=== PATIENT | female | born 1935 | race African-American/Black ===

== ENCOUNTER 2016-09-26 22:45 | Inpatient (IN) ==
--- NOTE | 2016-09-26 23:13 | Emergency Department Note ---
Arrival - Arrival Chief Complaint: Altered Mental Status Stated Complaint: altered ED Nursing Triage Note: pt was seen here earlier today and diagnosed with shingles. was prescribed clonidine for bp and took it tonight then states bp bottomed out afterwards. Mode of Arrival: Stretcher Source: Patient Time Seen by Provider: 09/26/16 23:11 - History of Present Illness HPI Narrative: This 81-year-old black female was seen earlier today for right facial shingles involving the forehead and extending medially down the bridge of the nose towards the right eye. At that time she had markedly elevated blood pressure and was prescribed clonidine to take at home. When she took the clonidine at home with her normal blood pressure medication her blood pressure bottomed out to 70/50. It has slowly climb back up to its normal ranges since. The patient did not experience any symptoms with this other than weakness. The patient has had normal blood pressure per the family until the shingles struck. At no time did the patient complained of chest pain, shortness of breath, visual changes, slurred speech or focal deficits. Currently she appears in no acute distress. Onset (ago): hour(s) (Patient presents 2 hours after symptoms) Date of Last Menstrual Period: pm Allergies/Adverse Reactions: Allergies Allergy/AdvReac Type Severity Reaction Status Date / Time iodine Allergy Severe HIVES Verified 04/30/16 19:19 latex Allergy Severe HIVES Verified 04/30/16 19:19 Penicillins Allergy Severe HIVES Verified 04/30/16 19:19 Shellfish Allergy Severe HIVES Verified 04/30/16 19:19 Sulfa (Sulfonamide Allergy Severe HIVES Verified 04/30/16 19:19 Antibiotics) Home Medications: Home Medications Medication Instructions Recorded Confirmed Type Amlodipine Besylate 5 mg PO DAILY 04/30/16 09/26/16 History Aspirin EC Tab 81 mg PO DAILY 04/30/16 09/26/16 History Carvedilol 6.25 mg PO BID W/MEALS 04/30/16 09/26/16 History metFORMIN [Glucophage] 500 mg PO BID W/MEALS 04/30/16 09/26/16 History Famciclovir [Famvir] 500 mg PO TID #21 tablet 09/26/16 Rx HYDROcodone/ACETAMIN 10-325 [Paulina 0.5 - 1 tablet PO Q6H #30 tablet 09/26/16 Rx 10-325] MDD 4 Liraglutide [Victoza 2-Simon] 1.2 ml SUBCUT DAILY 09/26/16 09/26/16 History Valsartan/Hydrochlorothiazide 1 each PO DAILY 09/26/16 09/26/16 History [Diovan Hct 320-25 mg Tablet] cloNIDine TAB [Catapres Tab] 0.1 mg PO BID #30 tablet 09/26/16 Rx Review of System - Review of System 12 point system: reviewed and no additional remarkable complaints except as stated - Review of System Constitutional: Present: as per HPI Cardiovascular: Present: as per HPI Neurological: Present: as per HPI Medical,Surgical,& Family Hx - Medical History Cardio: History of: Hypertension Endocrine: History of: Diabetes Mellitus (IDDM), Diabetes Mellitus (NIDDM), Dyslipidemia - Social History Smoking Status: Never smoker Frequency of Alcohol Use: None Type of Drug Use: None Exam Physical Examination: GENERAL: Well developed, well nourished elderly black female in no acute distress. HEENT: Normocephalic. No trauma. Moist mucous membranes. EOMI. PERRLA. Shingles of the right forehead extending down the right nasal wall towards the medial aspect of the right eye ENT NML NECK: Supple. No adenopathy. CARDIAC: Regular. No murmurs. 63 CHEST: Clear to auscultation. No respiratory distress. O2 sat 96% ABDOMEN: Soft. Nontender. Active bowel sounds. EXTREMITIES: No trauma. Normal ROM. No pedal edema. SKIN: No diaphoresis. No rash. NEURO: Alert. Oriented to person place not so well the time motor, sensory, vibratory intact. No focal deficits. Vital Signs: Vital Signs Temperature 96.7 F L 09/26/16 22:46 Pulse Rate 63 09/26/16 22:46 Respiratory Rate 14 09/26/16 22:46 Blood Pressure 174/69 09/26/16 22:46 O2 Sat by Pulse Oximetry 96 09/26/16 22:46 Course - Reevaluation(s) Reevaluation #1: Discussed with family and it is the thought of both the family myself that her blood pressure was elevated due to the pain. As she had normal blood pressures for some time on her previous regimen, the family has been advised to cease the clonidine. Disposition Clinical Impression: Drug reaction Case discussed with: patient, patient's family Disposition: Disch To Home/Self Care Condition: Stable Additional Instructions: Stop clonidine. Be sure and call the account processor office in the morning and tell them you were here tonight. Continue current anti-viral medications. Time of Disposition: 23:15
[2016-09-27] MEDS ORDERED: ONDANSETRON 4 MG/2 ML VIAL IV STA (00:41)
[2016-09-27 00:42] LABS: Apearance,Urine CLEAR (Clear); Bilirubin,Urine Negative (Negative); Blood, Urine Negative (Negative); Glucose,Urine (UA) Negative (Negative); Ketones,Urine Negative (Negative); Mucus,Urine Occasional /LPF (Occasional); Nitrite,Urine Negative (Negative); Protein,Urine Negative; RBC,Urine <1 /HPF (0-4); Squamous Epithelial Cell,Urine Occasional /HPF (0-10); Urine Color Yellow (Yellow); Urine Specific Gravity 1.014 (1.001-1.035); Urine Urobilinogen < 2.0 EU/DL (0.2-1.0); WBC,Urine 1 /HPF (0-6)
[2016-09-27] MEDS ORDERED: ONDANSETRON 4 MG/2 ML VIAL ONE (00:42)
[2016-09-27 00:49] LABS: INR 1.1; PT Patient Result 11.7 SECS; Partial Thromboplastin Time 25.6 SECS (0-40)
[2016-09-27 00:59] LABS: Alanine Aminotransferase 26 U/L (13-56); Alkaline Phosphatase 61 U/L (45-117); Aspartate Amino Transferase 17 U/L (0-37); Blood Urea Nitrogen 34 MG/DL (7-18); Calcium 9.7 MG/DL (8.5-10.1); Glucose 140 MG/DL (74-106); Osmolality,Calculated 286.5 MOS/KG (273-304); Sodium 139 MMOL/L (136-145); Total Protein 7.6 G/DL (6.4-8.3); Troponin I Only < 0.015 NG/ML (0.00-0.045)
[2016-09-27 01:00] LABS: Basophils % 0.5 % (0.0-0.8); Eosinophils # 0.3 10*3/uL (0.0-0.87); Eosinophils % 3.3 % (0.00-10.9); Hematocrit 31.3 VOL% (35.7-47.0); Hemoglobin 10.6 GM/DL (12.0-16.0); Immature Granulocytes % 0.5 %; Immature Granulocytes Absolute 0.04 #; Lymphocytes % 11.6 % (21.3-54.2); Mean Corpuscular HGB Conc 33.9 GM/DL (32-36); Mean Corpuscular Hemoglobin 31 PG (27-34); Mean Corpuscular Volume 92.3 FL (87-102); Mean Platelet Volume 12.9 FL (9.6-12.0); Monocytes # 0.9 10*3/uL (0.11-0.8); Monocytes % 10.3 % (1.7-12.7); Neutrophils # 6.5 10*3/uL (1.4-7.4); Neutrophils % 73.8 % (38.7-73.9); Platelet Count 203 T/CUMM (130-400); Red Blood Count 3.39 MC/CUMM (3.8-5.5); Red Cell Distribution Width 12.5 % (9.3-17.3); White Blood Count 8.8 T/CUMM (4-12)
[2016-09-27] MEDS ORDERED: amLODIPine 5 MG TABLET PO STA (01:15)
[2016-09-27] MEDS ORDERED: GLUCAGON 1 MG VIAL IM PRN (01:15)
[2016-09-27] MEDS ORDERED: ONDANSETRON 4 MG/2 ML VIAL IV PRN (01:15)
[2016-09-27] MEDS ORDERED: DEXTROSE 50% 25 GM/50 ML VIAL IV PRN (01:15)
--- NOTE | 2016-09-27 06:12 | CT Report ---
Exam: CT scan of brain without contrast Date: 09/27/2016 Indication: Mental status changes Comparison: 12/03/2012 Patient's classification: Emergency department Technical: Images were obtained from the skull base to the vertex without the use of intravenous contrast. Dose reduction was performed with decreasing kv and mA and automated exposure Total DLP: 914.6 mGy*cm Findings: The study was initially reviewed by [facility]. The brainstem reveals minimal ischemic changes. The cerebellum reveals complete components of atrophy. Small vessel changes are present in the periventricular subcortical white matter regions with a cavum septa pellucida and cavum vergae present. The paranasal sinuses globes and sella are intact the mastoids reveal no acute findings. Calvarium is intact. Impression: 1. Small vessel ischemic changes 2. No obvious acute hemorrhage, infarction or mass effect 3. Calcification in the basal ganglia and normal variant of cavum vergae cavum septa pellucida present. PROCEDURE INTERPRETED AT [facility] [place] DEPARTMENT OF RADIOLOGY Final Report Signed by: Dr. Calvin Ley
--- NOTE | 2016-09-27 06:45 | XRay Report ---
Exam: XR chest 1V portable Date: 09/26/2016 11:46 PM Indication: Altered mental status Comparison: 10/04/2011 Technical: Single portable exam Findings: Mild cardiomegaly present. ASVD is present. Degenerative change present thoracic spine. Small granuloma in the right base. External cardiac leads are present. Mediastinum is intact Impression: 1. Cardiomegaly without decompensation 2. Small granuloma right base 3. Degenerative spondylosis change thoracic spine PROCEDURE INTERPRETED AT [facility] DEPARTMENT OF RADIOLOGY Final Report Signed by: Dr. Calvin Ley
[2016-09-27] MEDS ORDERED: INSULIN REGULAR 100 UNIT/ML SUBCUT SCH (07:30)
[2016-09-27] MEDS ORDERED: CARVEDILOL 6.25 MG TABLET PO SCH (08:00)
[2016-09-27] MEDS ORDERED: metFORMIN 500 MG TABLET PO SCH (08:00)
--- NOTE | 2016-09-27 08:07 | EKG Report ---
Stationary ECG Study [facility] ER Test Date: 09/26/2016 11:59:22 PM Pat Name: GERMAN RAMIREZ Department: Room: 239 Gender: F Power Regulator: : 1935 Requested by: Viraj Tellez Order Number: [id number] Reading MD: ALFREDO LAUREANO Intervals [place] Rate: 70 P: 68 OK: 185 QRS: 61 QRSD: 133 T: -27 QT: 412 QTc: 433 Interpretive Statements SINUS RHYTHM WITH OCCASIONAL VENTRICULAR PREMATURE COMPLEXES INTRAVENTRICULAR CONDUCTION DELAY SEPTAL MYOCARDIAL INFARCTION, OF INDETERMINATE AGE Electronically Signed On 09-27-16 18:19:24 CDT by ALFREDO LAUREANO [email or web address]
--- NOTE | 2016-09-27 08:45 | Hospitalist History & Physical ---
<Allie De La Torre - Last Filed: 09/27/16 08:41> Assessment and Plan - Time spent with patient Time spent with patient: Greater than 30 minutes (1) Hypotension Status: Acute Assessment and plan: Ms. Hahn is an 81-year-old -[place] female admitted presented to the ED with herpes zoster infection and treated. Her blood pressures were elevated most likely due to pain and she was given an additional blood pressure medication. Patient states she became weak and her blood pressure bottomed out. She was admitted for observation and her blood pressures are back to normal now. Patient has been instructed to DC the clonidine and to control her pain with the [place] was given in the ED or Aleve or Motrin. Also instructed the patient to go ahead and document several blood pressures per day and to follow-up with Dr. Schwartz to see if her medicines need adjusted. Most likely they are elevated due to the intense pain she is feeling with the shingles infection and if the pain is controlled her blood pressure should most likely be controlled as well. Patient's case has been discussed with Dr. Newman and further recommendations to follow. So I will write for patient to discharge home with follow-up with Dr. Schwartz and also patient was to arrange follow-up with an eye doctor in the next day or so due to the shingles infection. (2) Herpes zoster cephalicus Status: Acute History of Present Illness Chief complaint: Weakness History of present illness: Ms. Hahn is a 81 year old female with history of hypertension presenting to the ED with complaints of weakness and low blood pressure. She had been seen the previous day and treated for shingles but at that time her blood pressure was 221/76. She was given clonidine to add to her home regimen and patient states her blood pressure dropped too low and she felt really weak. Family insisted on admission and she was mistakenly admitted by Dr. Gage. Family states patient sees Dr. Schwartz right now but they are wanting to switch to Dr. Freeman but he has not seen her yet. Dr. Gage asked if we could take over patient's care. On exam patient is awake and alert complaining of right facial pain. Her blood pressures have been good the last 12 hours. Patient denies headache, blurry vision, chest pain, shortness of breath, abdominal pain, or lower extremity swelling. Patient states she wants to go home. Home Medications Medication Instructions Recorded Confirmed Type Amlodipine Besylate 5 mg PO DAILY 04/30/16 09/27/16 History Aspirin EC Tab 81 mg PO DAILY 04/30/16 09/27/16 History Carvedilol 6.25 mg PO BID W/MEALS 04/30/16 09/27/16 History metFORMIN [Glucophage] 500 mg PO BID W/MEALS 04/30/16 09/27/16 History Famciclovir [Famvir] 500 mg PO TID #21 tablet 09/26/16 09/27/16 Rx Liraglutide [Victoza 2-Simon] 1.2 ml SUBCUT DAILY 09/26/16 09/27/16 History Valsartan/Hydrochlorothiazide 1 each PO DAILY 09/26/16 09/27/16 History [Diovan Hct 320-25 mg Tablet] HYDROcodone/ACETAMIN 10-325 [[place] 0.5 - 1 tablet PO Q6H PRN MDD 4 09/27/16 History 10-325] Allergies Allergy/AdvReac Type Severity Reaction Status Date / Time iodine Allergy Severe HIVES Verified 09/27/16 02:48 latex Allergy Severe HIVES Verified 09/27/16 02:48 Penicillins Allergy Severe HIVES Verified 09/27/16 02:48 Shellfish Allergy Severe HIVES Verified 09/27/16 02:48 Sulfa (Sulfonamide Allergy Severe HIVES Verified 09/27/16 02:48 Antibiotics) Medical,Surgical,& Family Hx - Medical History Cardio: History of: Hypertension HEENT: History of: Dental Problems (has a bad tooth) Endocrine: History of: Diabetes Mellitus (IDDM), Diabetes Mellitus (NIDDM), Dyslipidemia Rheumatology: History of;: Rheumatoid Arthritis - Surgical History Abdominal Surgeries: Patient denies: Abdominal Surgery Orthopedic Surgeries: Patient denies;: Spinal Surgery - Family History Family History: Reports;: Family Cancer (sistrer had melanoma), Family Diabetes (daughter had gestational), Family Hypertension (daughter), Family Psychiatric Problems (daughter) Denies;: Family Anesthesia Reaction, Family Heart Disease, Family Hematology , Family Stroke - Social History Smoking Status: Never smoker Frequency of Alcohol Use: None Type of Drug Use: None Marital Status: Lives With:: Spouse Functional capacity: independent ambulation Review of systems: A complete 10 system review of systems was obtained and pertinent positives and negatives per HPI Exam - Constitutional Vitals: Period Temp Pulse Resp BP Sys/Garcia Pulse Ox Last 24 Hr 97.0 F-98.1 F 68-72 16-20 158-183/58-86 94-99 Exam: Constitutional System: [Mild] distress. [No] tremulousness. Head: Normocephalic, atraumatic. Patient does have blisters on the right side of head and forehead Ears, Nose and Throat System: No evidence of Otitis or Mastoiditis. No epistaxis or discharge Eyes System: Pupils equal, round, and reactive. Extraocular muscles intact. Neck: Supple, without adenopathy, [No] jugular venous distention. No thyromegaly , neck mass, or prior surgery apparent. Respiratory System: Chest [clear] to auscultation. Cardiovascular System: Heart with [regular] rate and rhythm. [No] murmur. GI System: Abdomen [soft], [non]tender. [Normo]active bowel sounds present. Musculoskeletal System: limbs with [no] pedal edema. [Full] distal pulses. Neurological System: [No discernable] sensory deficit. 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 Hahn is a 81 year old female that was mistakenly admitted to Dr. Chepe Gage service overnight. I was contacted by Dr. Gage in the morning to assume care of this patient. Patient was seen and examined by AIMEE Dominguez. I have not personally seen and examined this patient today. I agree with the above note as prepared by the advanced practice provider. I agree with the assessment and plan. Exam - Constitutional Vitals: Period Temp Pulse Resp BP Sys/Garcia Pulse Ox Last 24 Hr 97.0 F-98.5 F 68-72 16-20 152-183/58-86 93-99 Results - Labs CBC & BMP: 09/26/16 23:53 09/26/16 23:53
--- NOTE | 2016-09-27 08:54 | Discharge Summary ---
<Allie De La Torre - Last Filed: 09/27/16 08:52> Hospital Course - Time spent with patient Time with patient DS: Less than 30 minutes Diagnosis - Discharge Diagnosis (1) Hypotension Status: Resolved (2) Herpes zoster cephalicus Status: Resolved Specialty Discharge - Follow Up or Referrals Follow up with: opthalmologist, physician [Other] - 09/28/16 Arabella Vargas [Physician] - 10/06/16 10:00 am Discharge Plan - Discharge Data Disposition: Disch To Home/Self Care Condition at Discharge: Stable Discharge Diet: advance to your usual diet Activity: resume usual activities as tolerated Hygiene: may shower Driving: other (No driving if taking pain medications) Contact your physician if you experience:: fever over 101, pain uncontrolled by pain medications - Discharge Medications Continue metFORMIN [Glucophage] 500 mg PO BID W/MEALS Liraglutide [Victoza 2-Simon] 1.2 ml SUBCUT DAILY Valsartan/Hydrochlorothiazide [Diovan Hct 320-25 mg Tablet] 1 each PO DAILY Famciclovir [Famvir] 500 mg PO TID #21 tablet HYDROcodone/ACETAMIN 10-325 [[place] 10-325] 0.5 - 1 tablet PO Q6H PRN MDD 4 PRN Reason: Pain Carvedilol 6.25 mg PO BID W/MEALS Amlodipine Besylate 5 mg PO DAILY Aspirin EC Tab 81 mg PO DAILY Discontinued cloNIDine TAB [Catapres Tab] 0.1 mg PO BID #30 tablet - Follow Up or Referral Follow Up: opthalmologist, physician [Other] - 09/28/16 Arabella Vargas [Physician] - 10/06/16 10:00 am - Forms/Instructions Instructions: Hypotension (DC) Exam - Constitutional Vitals: Period Temp Pulse Resp BP Sys/Garcia Pulse Ox Last 24 Hr 97.0 F-98.5 F 68-72 16-20 152-183/58-86 93-99 Exam: 81-year-old -[place] female, no acute distress Head and face with blistering rash on the right side extending to the forehead Chest clear CV regular rate and rhythm Abdomen obese nontender Extremities no edema DS: Provider Date of admission: 09/27/16 01:14 Primary care physician: . No PCP Attending physician on admission: Zi Gage MD Discharging clinician: AIMEE Peoples Expected date of discharge: 09/27/16 <Scott Thornton - Last Filed: 09/27/16 19:43> Hospital Course - Hospital Course Hospital Course: Ms. Hahn is an 81-year-old -[place] female admitted presented to the ED with herpes zoster infection and treated. Her blood pressures were elevated most likely due to pain and she was given an additional blood pressure medication. Patient states she became weak and her blood pressure bottomed out. She was admitted for observation and her blood pressures are back to normal now. Patient has been instructed to DC the clonidine and to control her pain with the [place] was given in the ED or Aleve or Motrin. Also instructed the patient to go ahead and document several blood pressures per day and to follow-up with Dr. Schwartz to see if her medicines need adjusted. Most likely they are elevated due to the intense pain she is feeling with the shingles infection and if the pain is controlled her blood pressure should most likely be controlled as well. Patient's case has been discussed with Dr. Newman and further recommendations to follow. So I will write for patient to discharge home with follow-up with Dr. Schwartz and also patient was to arrange follow-up with an eye doctor in the next day or so due to the shingles infection. - Time spent with patient Time with patient DS: Less than 30 minutes Diagnosis - Discharge Diagnosis (1) HTN (hypertension) Status: Chronic (2) Herpes zoster cephalicus Status: Acute
[2016-09-27 09:00] VITALS: BP 152/68
[2016-09-27] MEDS ORDERED: PANTOPRAZOLE 40 MG TABLET PO SCH (09:00)
[2016-09-27] MEDS ORDERED: VALSARTAN/HCTZ 160-12.5 MG TABLET PO SCH (09:00)
[2016-09-27] MEDS ORDERED: ASPIRIN EC 81 MG TABLET PO SCH (09:00)
== END 2016-09-27 11:30 | disposition home or self-care (01) | DRG 312 ==
LOC: EDUNIT# → EDBD → N.ED 22:45 → N.EDINP 09-27 01:14 → SUATTDRO 09-27 01:14 → N.4E 09-27 01:35 → N.2E 09-27 01:59
PROVIDERS: ADMIT Family Medicine; ATTEND Family Medicine

== ENCOUNTER 2017-09-19 20:48 | Observation (INO) ==
[2017-09-19] MEDS ORDERED: traMADol 50 MG TABLET PO STA (21:51)
[2017-09-19] MEDS ORDERED: ONDANSETRON ODT 4 MG TABLET PO STA (21:51)
[2017-09-19] MEDS ORDERED: ONDANSETRON 4 MG/2 ML VIAL IV STA (23:39)
[2017-09-19] MEDS ORDERED: PANTOPRAZOLE 40 MG VIAL IV STA (23:39)
[2017-09-20] MEDS ORDERED: hydrALAZINE 20 MG/1 ML VIAL IV STA (00:55)
[2017-09-20 01:39] LABS: Basophils % 0.5 % (0.0-0.8); Eosinophils # 0.1 10*3/uL (0.0-0.87); Eosinophils % 1.8 % (0.00-10.9); Hematocrit 35.9 VOL% (35.7-47.0); Hemoglobin 12.8 GM/DL (12.0-16.0); Immature Granulocytes % 0.3 %; Immature Granulocytes Absolute 0.02 #; Lymphocytes # 2.2 10*3/uL (1.4-4.0); Lymphocytes % 33.6 % (21.3-54.2); Mean Corpuscular HGB Conc 35.7 GM/DL (32-36); Mean Corpuscular Hemoglobin 32 PG (27-34); Mean Corpuscular Volume 89.1 FL (87-102); Mean Platelet Volume 14.2 FL (9.6-12.0); Monocytes # 0.6 10*3/uL (0.11-0.8); Monocytes % 8.4 % (1.7-12.7); Neutrophils # 3.6 10*3/uL (1.4-7.4); Neutrophils % 55.4 % (38.7-73.9); Platelet Count 173 T/CUMM (130-400); Red Blood Count 4.03 MC/CUMM (3.8-5.5); Red Cell Distribution Width 11.9 % (9.3-17.3); White Blood Count 6.5 T/CUMM (4-12)
[2017-09-20 01:42] LABS: Alanine Aminotransferase 25 U/L (13-56); Albumin 3.3 G/DL (3.4-5.0); Alkaline Phosphatase 100 U/L (45-117); Aspartate Amino Transferase 15 U/L (0-37); Bilirubin,Total < 0.39 MG/DL (0.2-1.0); Blood Urea Nitrogen 32 MG/DL (7-18); Calcium 9.4 MG/DL (8.5-10.1); Glucose 288 MG/DL (74-106); Potassium 4.2 MMOL/L (3.5-5.1); Sodium 136 MMOL/L (136-145); Total Protein 7.4 G/DL (6.4-8.3)
[2017-09-20 01:44] LABS: INR 0.9; PT Patient Result 9.8 SECS
[2017-09-20] MEDS ORDERED: SODIUM CHLORIDE 0.9% 500 ML IV STA (02:03)
[2017-09-20] MEDS ORDERED: ACETAMINOPHEN 325 MG TABLET PO PRN (02:17)
[2017-09-20] MEDS ORDERED: ONDANSETRON 4 MG/2 ML VIAL IV PRN (02:17)
[2017-09-20] MEDS ORDERED: DEXTROSE 5% 1,000 ML IV SCH (02:30)
[2017-09-20] MEDS ORDERED: DEXTROSE 50% 25 GM/50 ML VIAL IV PRN (04:59)
[2017-09-20] MEDS ORDERED: GLUCAGON 1 MG VIAL IM PRN (04:59)
[2017-09-20] MEDS ORDERED: hydrALAZINE 20 MG/1 ML VIAL IV PRN (05:13)
[2017-09-20 06:14] LABS: Basophils % 0.3 % (0.0-0.8); Eosinophils # 0.1 10*3/uL (0.0-0.87); Eosinophils % 0.5 % (0.00-10.9); Hematocrit 35.7 VOL% (35.7-47.0); Hemoglobin 12.4 GM/DL (12.0-16.0); Immature Granulocytes % 0.4 %; Immature Granulocytes Absolute 0.04 #; Lymphocytes # 1.6 10*3/uL (1.4-4.0); Lymphocytes % 14.1 % (21.3-54.2); Mean Corpuscular HGB Conc 34.7 GM/DL (32-36); Mean Corpuscular Hemoglobin 32 PG (27-34); Mean Corpuscular Volume 91.1 FL (87-102); Mean Platelet Volume 13.4 FL (9.6-12.0); Monocytes # 0.5 10*3/uL (0.11-0.8); Monocytes % 4.6 % (1.7-12.7); Neutrophils # 8.9 10*3/uL (1.4-7.4); Neutrophils % 80.1 % (38.7-73.9); Platelet Count 169 T/CUMM (130-400); Red Blood Count 3.92 MC/CUMM (3.8-5.5); Red Cell Distribution Width 11.9 % (9.3-17.3); White Blood Count 11.1 T/CUMM (4-12)
[2017-09-20 07:04] LABS: Calcium 9.2 MG/DL (8.5-10.1); Osmolality,Calculated 289.8 MOS/KG (273-304); Potassium 4.1 MMOL/L (3.5-5.1); Thyroid Stimulating Hormone 4.7 uIU/ml (0.358-3.74)
[2017-09-20] MEDS: INSULIN REGULAR 100 UNIT/ML SUBCUT SCH ×4 (08:06→21:07)
[2017-09-20] MEDS: GLIMEPIRIDE 2 MG TABLET PO SCH ×2 (08:08→16:37)
[2017-09-20] MEDS: ASPIRIN EC 81 MG TABLET PO SCH (08:08)
[2017-09-20] MEDS: CARVEDILOL 6.25 MG TABLET PO SCH ×2 (08:08→16:37)
[2017-09-20] MEDS: PANTOPRAZOLE 40 MG TABLET PO SCH (08:08)
[2017-09-20] MEDS: VALSARTAN/HCTZ 160-12.5 MG TABLET PO SCH (08:08)
[2017-09-20] MEDS: MAGNESIUM CHLORIDE 64 MG TABLET PO SCH (08:08)
[2017-09-20] MEDS ORDERED: DHA PO SCH (09:00)
[2017-09-20] MEDS: DOCUSATE SODIUM 100 MG CAPSULE PO SCH ×2 (09:00→21:06)
[2017-09-20] MEDS ORDERED: COD LIVER OIL PO SCH (09:00)
[2017-09-20] MEDS ORDERED: EPA PO SCH (09:00)
[2017-09-20] MEDS ORDERED: [UNRECOGNIZED DRUG - OTHER] PO SCH (09:00)
[2017-09-20] MEDS ORDERED: D3 PO SCH (09:00)
[2017-09-20] MEDS ORDERED: SODIUM CHLORIDE 0.9% 1,000 ML IV SCH (20:30)
[2017-09-20] MEDS: hydrALAZINE 25 MG TABLET PO SCH (21:06)
[2017-09-20] MEDS: SIMVASTATIN 20 MG TABLET PO SCH (21:06)
[2017-09-20] MEDS: INSULIN GLARGINE 100 UNIT/ML SUBCUT SCH (21:07)
[2017-09-20] MEDS: KETOROLAC 15 MG/1 ML VIAL IV SCH (21:15)
[2017-09-20] MEDS ORDERED: IPRATROPIUM 500 MCG/2.5 ML NEB RESP TX PRN (23:40)
[2017-09-21 04:23] LABS: Apearance,Urine Clear (Clear); Protein,Urine 30 MG/DL; Urine Color Yellow (Yellow); Urine Specific Gravity 1.005 (1.001-1.035)
[2017-09-21 04:24] LABS: Bilirubin,Urine Negative (Negative); Blood, Urine Negative (Negative); Glucose,Urine (UA) Negative (Negative); Granular Casts,Urine 1 /LPF (0-1); Hyaline Casts,Urine 1 /LPF (0-3); Ketones,Urine Negative (Negative); Mucus,Urine Occasional /LPF (Occasional); Nitrite,Urine Negative (Negative); Squamous Epithelial Cell,Urine Occasional /HPF (0-10); Urine Urobilinogen < 2.0 EU/DL (0.2-1.0)
[2017-09-21 06:00] LABS: Basophils % 0.4 % (0.0-0.8); Eosinophils # 0.1 10*3/uL (0.0-0.87); Eosinophils % 1.8 % (0.00-10.9); Hematocrit 34.2 VOL% (35.7-47.0); Hemoglobin 11.7 GM/DL (12.0-16.0); Immature Granulocytes % 0.3 %; Immature Granulocytes Absolute 0.02 #; Lymphocytes # 2.9 10*3/uL (1.4-4.0); Lymphocytes % 37.8 % (21.3-54.2); Mean Corpuscular HGB Conc 34.2 GM/DL (32-36); Mean Corpuscular Hemoglobin 32 PG (27-34); Mean Corpuscular Volume 91.9 FL (87-102); Mean Platelet Volume 13.9 FL (9.6-12.0); Monocytes # 0.6 10*3/uL (0.11-0.8); Monocytes % 7.2 % (1.7-12.7); Neutrophils % 52.5 % (38.7-73.9); Platelet Count 172 T/CUMM (130-400); Red Blood Count 3.72 MC/CUMM (3.8-5.5); Red Cell Distribution Width 11.9 % (9.3-17.3); White Blood Count 7.6 T/CUMM (4-12)
[2017-09-21 06:29] LABS: Calcium 8.7 MG/DL (8.5-10.1); Potassium 4.5 MMOL/L (3.5-5.1)
[2017-09-21] MEDS: KETOROLAC 15 MG/1 ML VIAL IV SCH ×3 (07:14→21:27)
[2017-09-21] MEDS: LEVOTHYROXINE 25 MCG TABLET PO SCH (07:15)
[2017-09-21] MEDS: INSULIN REGULAR 100 UNIT/ML SUBCUT SCH ×4 (09:28→21:28)
[2017-09-21] MEDS: PANTOPRAZOLE 40 MG TABLET PO SCH (09:29)
[2017-09-21] MEDS: VALSARTAN/HCTZ 160-12.5 MG TABLET PO SCH (09:29)
[2017-09-21] MEDS: SERTRALINE 25 MG TABLET PO SCH (09:29)
[2017-09-21] MEDS: ASPIRIN EC 81 MG TABLET PO SCH (09:30)
[2017-09-21] MEDS: hydrALAZINE 25 MG TABLET PO SCH ×3 (09:30→21:28)
[2017-09-21] MEDS: INSULIN GLARGINE 100 UNIT/ML SUBCUT SCH ×2 (09:30→21:29)
[2017-09-21] MEDS: GLIMEPIRIDE 2 MG TABLET PO SCH ×2 (09:30→17:29)
[2017-09-21] MEDS: DOCUSATE SODIUM 100 MG CAPSULE PO SCH ×2 (09:30→21:28)
[2017-09-21] MEDS: CARVEDILOL 6.25 MG TABLET PO SCH ×2 (09:30→17:29)
[2017-09-21] MEDS: MAGNESIUM CHLORIDE 64 MG TABLET PO SCH (09:31)
[2017-09-21] MEDS: PREGABALIN 75 MG CAPSULE PO SCH (21:28)
[2017-09-21] MEDS: SIMVASTATIN 20 MG TABLET PO SCH (21:28)
[2017-09-22] MEDS: KETOROLAC 15 MG/1 ML VIAL IV SCH ×3 (07:40→22:45)
[2017-09-22] MEDS: ASPIRIN EC 81 MG TABLET PO SCH (08:41)
[2017-09-22] MEDS: CARVEDILOL 6.25 MG TABLET PO SCH ×2 (08:41→18:01)
[2017-09-22] MEDS: DOCUSATE SODIUM 100 MG CAPSULE PO SCH ×2 (08:41→21:13)
[2017-09-22] MEDS: GLIMEPIRIDE 2 MG TABLET PO SCH (08:41)
[2017-09-22] MEDS: hydrALAZINE 25 MG TABLET PO SCH (08:41)
[2017-09-22] MEDS: LEVOTHYROXINE 25 MCG TABLET PO SCH (08:42)
[2017-09-22] MEDS: VALSARTAN/HCTZ 160-12.5 MG TABLET PO SCH (08:43)
[2017-09-22] MEDS: PREGABALIN 75 MG CAPSULE PO SCH (08:43)
[2017-09-22] MEDS: PANTOPRAZOLE 40 MG TABLET PO SCH (08:45)
[2017-09-22] MEDS: INSULIN REGULAR 100 UNIT/ML SUBCUT SCH ×4 (08:46→21:12)
[2017-09-22] MEDS: INSULIN GLARGINE 100 UNIT/ML SUBCUT SCH (08:46)
[2017-09-22] MEDS: SERTRALINE 25 MG TABLET PO SCH (08:51)
[2017-09-22] MEDS ORDERED: glyBURIDE 5 MG TABLET PO SCH (17:00)
[2017-09-22] MEDS: SIMVASTATIN 20 MG TABLET PO SCH (21:12)
[2017-09-22] MEDS: PREGABALIN 50 MG CAPSULE PO SCH (21:13)
[2017-09-23 04:14] LABS: Calcium 8.9 MG/DL (8.5-10.1); Osmolality,Calculated 281.8 MOS/KG (273-304); Potassium 4.2 MMOL/L (3.5-5.1)
[2017-09-23] MEDS: KETOROLAC 15 MG/1 ML VIAL IV SCH (05:39)
[2017-09-23] MEDS: LEVOTHYROXINE 25 MCG TABLET PO SCH (05:40)
[2017-09-23] MEDS: INSULIN REGULAR 100 UNIT/ML SUBCUT SCH ×2 (07:56→12:25)
[2017-09-23] MEDS ORDERED: glyBURIDE 5 MG TABLET PO SCH (08:00)
[2017-09-23] MEDS: VALSARTAN/HCTZ 160-12.5 MG TABLET PO SCH (08:25)
[2017-09-23] MEDS: DOCUSATE SODIUM 100 MG CAPSULE PO SCH (08:26)
[2017-09-23] MEDS: ASPIRIN EC 81 MG TABLET PO SCH (08:26)
[2017-09-23] MEDS: SERTRALINE 25 MG TABLET PO SCH (08:26)
[2017-09-23] MEDS: PREGABALIN 50 MG CAPSULE PO SCH (08:26)
[2017-09-23] MEDS: PANTOPRAZOLE 40 MG TABLET PO SCH (08:26)
[2017-09-23] MEDS: CARVEDILOL 6.25 MG TABLET PO SCH (08:26)
[2017-09-23 09:18] VITALS: BP 166/66
== END 2017-09-23 12:24 | disposition home or self-care (01) ==
LOC: N.ED 20:48 → INTOOBSV 09-20 02:17 → N.EDINP 09-20 02:17 → N.CC 09-20 04:04 → N.5E 09-21
PROVIDERS: ADMIT Internal Medicine; ATTEND Internal Medicine

== ENCOUNTER 2018-07-08 11:45 | Inpatient (IN) ==
[2018-07-08 13:21] LABS: Basophils # 0.1 10*3/uL (0.0-0.2); Basophils % 0.5 % (0.0-0.8); Eosinophils # 0.1 10*3/uL (0.0-0.87); Eosinophils % 0.8 % (0.00-10.9); Hemoglobin 12.4 GM/DL (12.0-16.0); Immature Granulocytes % 0.3 %; Immature Granulocytes Absolute 0.03 #; Lymphocytes # 1.2 10*3/uL (1.4-4.0); Lymphocytes % 11.3 % (21.3-54.2); Mean Corpuscular HGB Conc 33.5 GM/DL (32-36); Mean Corpuscular Hemoglobin 31 PG (27-34); Mean Corpuscular Volume 91.1 FL (87-102); Mean Platelet Volume 13.8 FL (9.6-12.0); Monocytes # 0.6 10*3/uL (0.11-0.8); Monocytes % 5.5 % (1.7-12.7); Neutrophils # 8.6 10*3/uL (1.4-7.4); Neutrophils % 81.6 % (38.7-73.9); Platelet Count 166 T/CUMM (130-400); Red Blood Count 4.06 MC/CUMM (3.8-5.5); Red Cell Distribution Width 11.4 % (9.3-17.3); White Blood Count 10.5 T/CUMM (4-12)
[2018-07-08 13:39] LABS: INR 0.9; PT Patient Result 10.3 SECS
[2018-07-08 13:46] LABS: Calcium 9.2 MG/DL (8.5-10.1); Osmolality,Calculated 293.2 MOS/KG (273-304); Potassium 3.9 MMOL/L (3.5-5.1)
[2018-07-08] MEDS ORDERED: ONDANSETRON 4 MG/2 ML VIAL IV PRN (13:56)
[2018-07-08] MEDS ORDERED: INSULIN REGULAR 100 UNIT/ML SUBCUT STA (14:04)
[2018-07-08] MEDS ORDERED: DEXTROSE 50% 25 GM/50 ML SYRINGE IV PRN (15:48)
[2018-07-08] MEDS ORDERED: GLUCAGON 1 MG VIAL IM PRN (15:48)
[2018-07-08] MEDS: ACETAMINOPHEN 325 MG TABLET PO PRN ×2 (17:51→22:08)
[2018-07-08] MEDS ORDERED: SODIUM CHLORIDE 0.9% 1,000 ML IV SCH (18:00)
[2018-07-08] MEDS: GLIMEPIRIDE 2 MG TABLET PO SCH (21:56)
[2018-07-08] MEDS: SIMVASTATIN 10 MG TABLET PO SCH (21:56)
[2018-07-08] MEDS: INSULIN LISPRO 100 UNIT/ML SUBCUT SCH (21:56)
[2018-07-08] MEDS: DOCUSATE SODIUM 100 MG CAPSULE PO SCH (21:56)
[2018-07-08] MEDS: MAGNESIUM CHLORIDE 64 MG TABLET PO SCH (21:56)
[2018-07-08] MEDS: SODIUM CHLORIDE 0.9% IV SCH (22:07)
[2018-07-08] MEDS: POTASSIUM CHLORIDE IV SCH (22:07)
[2018-07-08] MEDS: POLYVINYL ALCOHOL 1.4% OPH SOLN 15 ML BOTTLE BOTH EYES SCH (22:17)
[2018-07-09 03:18] LABS: Apearance,Urine CLEAR (Clear); Bacteria,Urine Occasional /HPF (Few); Bilirubin,Urine Negative (Negative); Blood, Urine Negative (Negative); Glucose,Urine (UA) >=500 mg/dL (Negative); Hyaline Casts,Urine 3 /LPF (0-3); Ketones,Urine Negative (Negative); Mucus,Urine Occasional /LPF (Occasional); Nitrite,Urine Negative (Negative); Protein,Urine 100 MG/DL; RBC,Urine <1 /HPF (0-4); Squamous Epithelial Cell,Urine Occasional /HPF (0-10); Urine Color Yellow (Yellow); Urine Specific Gravity 1.016 (1.001-1.035); Urine Urobilinogen < 2.0 EU/DL (0.2-1.0); WBC,Urine 1 /HPF (0-6)
[2018-07-09 04:18] LABS: Basophils % 0.4 % (0.0-0.8); Eosinophils # 0.2 10*3/uL (0.0-0.87); Eosinophils % 2.1 % (0.00-10.9); Hematocrit 35.1 VOL% (35.7-47.0); Hemoglobin 11.6 GM/DL (12.0-16.0); Immature Granulocytes % 0.3 %; Immature Granulocytes Absolute 0.03 #; Lymphocytes # 2.3 10*3/uL (1.4-4.0); Lymphocytes % 24.2 % (21.3-54.2); Mean Corpuscular Hemoglobin 30 PG (27-34); Mean Corpuscular Volume 91.6 FL (87-102); Mean Platelet Volume 13.9 FL (9.6-12.0); Monocytes # 0.9 10*3/uL (0.11-0.8); Monocytes % 9.9 % (1.7-12.7); Neutrophils # 5.9 10*3/uL (1.4-7.4); Neutrophils % 63.1 % (38.7-73.9); Platelet Count 177 T/CUMM (130-400); Red Blood Count 3.83 MC/CUMM (3.8-5.5); Red Cell Distribution Width 11.6 % (9.3-17.3); White Blood Count 9.4 T/CUMM (4-12)
[2018-07-09 04:35] LABS: Calcium 9.2 MG/DL (8.5-10.1); Osmolality,Calculated 287.4 MOS/KG (273-304); Potassium 3.5 MMOL/L (3.5-5.1)
[2018-07-09 04:46] LABS: Albumin 3.2 G/DL (3.4-5.0); Calcium 9.4 MG/DL (8.5-10.1); Ferritin 232.9 ng/ml (8-252); Free T4 (Free Thyroxine) 0.95 NG/DL (0.76-1.46); Osmolality,Calculated 287.4 MOS/KG (273-304); Potassium 3.6 MMOL/L (3.5-5.1); Risk Ratio 3.16; Thyroid Stimulating Hormone 2.72 uIU/ml (0.358-3.74); Total Protein 6.9 G/DL (6.4-8.3); VLDL CHOLESTEROL 19.6 MG/DL
[2018-07-09] MEDS: LEVOTHYROXINE 25 MCG TABLET PO SCH (06:50)
[2018-07-09] MEDS: PANTOPRAZOLE 40 MG TABLET PO SCH (09:34)
[2018-07-09] MEDS: MULTIVITAMIN (CENTRUM) TABLET PO SCH (09:34)
[2018-07-09] MEDS: FERROUS SULFATE 325 MG TABLET PO SCH (09:34)
[2018-07-09] MEDS: OMEGA 3 ACID ETHYL ESTERS 1 GM CAPSULE PO SCH (09:35)
[2018-07-09] MEDS: ASPIRIN EC 81 MG TABLET PO SCH (09:36)
[2018-07-09] MEDS: MAGNESIUM CHLORIDE 64 MG TABLET PO SCH ×2 (09:36→21:07)
[2018-07-09] MEDS: hydroCHLOROthiazide 12.5 MG CAPSULE PO SCH (09:36)
[2018-07-09] MEDS: CARVEDILOL 6.25 MG TABLET PO SCH ×2 (09:37→16:37)
[2018-07-09] MEDS: DOCUSATE SODIUM 100 MG CAPSULE PO SCH ×2 (09:37→21:07)
[2018-07-09] MEDS: GLIMEPIRIDE 2 MG TABLET PO SCH ×2 (09:37→21:07)
[2018-07-09] MEDS: INSULIN LISPRO 100 UNIT/ML SUBCUT SCH ×4 (09:37→21:08)
[2018-07-09] MEDS: DOXAZOSIN 1 MG TABLET PO SCH (09:37)
[2018-07-09] MEDS: SODIUM CHLORIDE 0.9% IV SCH ×2 (09:38→18:49)
[2018-07-09] MEDS: POTASSIUM CHLORIDE IV SCH ×2 (09:38→18:49)
[2018-07-09] MEDS: ACETAMINOPHEN 325 MG TABLET PO PRN ×2 (09:41→23:22)
[2018-07-09] MEDS: POLYVINYL ALCOHOL 1.4% OPH SOLN 15 ML BOTTLE BOTH EYES SCH (21:08)
[2018-07-09] MEDS: SIMVASTATIN 10 MG TABLET PO SCH (21:18)
[2018-07-10] MEDS: POTASSIUM CHLORIDE IV SCH ×3 (03:35→13:48)
[2018-07-10] MEDS: SODIUM CHLORIDE 0.9% IV SCH ×3 (03:35→13:48)
[2018-07-10 03:52] LABS: Basophils % 0.2 % (0.0-0.8); Eosinophils # 0.1 10*3/uL (0.0-0.87); Eosinophils % 1.2 % (0.00-10.9); Hematocrit 31.8 VOL% (35.7-47.0); Hemoglobin 10.6 GM/DL (12.0-16.0); Immature Granulocytes % 0.3 %; Immature Granulocytes Absolute 0.03 #; Lymphocytes # 1.1 10*3/uL (1.4-4.0); Lymphocytes % 10.8 % (21.3-54.2); Mean Corpuscular HGB Conc 33.3 GM/DL (32-36); Mean Corpuscular Hemoglobin 31 PG (27-34); Mean Corpuscular Volume 92.7 FL (87-102); Mean Platelet Volume 13.3 FL (9.6-12.0); Monocytes # 0.8 10*3/uL (0.11-0.8); Monocytes % 7.4 % (1.7-12.7); Neutrophils # 8.2 10*3/uL (1.4-7.4); Neutrophils % 80.1 % (38.7-73.9); Platelet Count 143 T/CUMM (130-400); Red Blood Count 3.43 MC/CUMM (3.8-5.5); Red Cell Distribution Width 11.9 % (9.3-17.3); White Blood Count 10.2 T/CUMM (4-12)
[2018-07-10 04:21] LABS: Calcium 8.6 MG/DL (8.5-10.1); Osmolality,Calculated 291.7 MOS/KG (273-304); Potassium 4.3 MMOL/L (3.5-5.1)
[2018-07-10] MEDS: LEVOTHYROXINE 25 MCG TABLET PO SCH (05:49)
[2018-07-10] MEDS: MULTIVITAMIN (CENTRUM) TABLET PO SCH (09:20)
[2018-07-10] MEDS: CARVEDILOL 6.25 MG TABLET PO SCH ×2 (09:20→16:47)
[2018-07-10] MEDS: PANTOPRAZOLE 40 MG TABLET PO SCH (09:20)
[2018-07-10] MEDS: MAGNESIUM CHLORIDE 64 MG TABLET PO SCH ×2 (09:20→21:56)
[2018-07-10] MEDS: OMEGA 3 ACID ETHYL ESTERS 1 GM CAPSULE PO SCH (09:20)
[2018-07-10] MEDS: FERROUS SULFATE 325 MG TABLET PO SCH (09:20)
[2018-07-10] MEDS: GLIMEPIRIDE 2 MG TABLET PO SCH ×2 (09:20→16:47)
[2018-07-10] MEDS: hydroCHLOROthiazide 12.5 MG CAPSULE PO SCH (09:20)
[2018-07-10] MEDS: DOCUSATE SODIUM 100 MG CAPSULE PO SCH ×2 (09:21→21:57)
[2018-07-10] MEDS: ASPIRIN EC 81 MG TABLET PO SCH (09:21)
[2018-07-10] MEDS: INSULIN LISPRO 100 UNIT/ML SUBCUT SCH ×4 (09:21→21:54)
[2018-07-10] MEDS: ACETAMINOPHEN 325 MG TABLET PO PRN (09:22)
[2018-07-10] MEDS: DOXAZOSIN 1 MG TABLET PO SCH (09:27)
[2018-07-10] MEDS ORDERED: FUROSEMIDE 40 MG/4 ML VIAL IV ONE (12:03)
[2018-07-10] MEDS: ISOSORBIDE MONONITRATE 30 MG TABLET PO SCH (12:58)
[2018-07-10] MEDS: INSULIN GLARGINE 100 UNIT/ML SUBCUT SCH (12:59)
[2018-07-10] MEDS: AZITHROMYCIN INJ 250 MG in SODIUM CHLORIDE 0.9% 250 ML IV SCH (14:16)
[2018-07-10] MEDS ORDERED: KETOROLAC 15 MG/1 ML VIAL IV ONE (18:25)
[2018-07-10] MEDS: BUTALBITAL/ACETAMIN/CAFFEINE 50-325-40 MG TABLET PO SCH (18:41)
[2018-07-10] MEDS: SIMVASTATIN 10 MG TABLET PO SCH (21:57)
[2018-07-10] MEDS: POLYVINYL ALCOHOL 1.4% OPH SOLN 15 ML BOTTLE BOTH EYES SCH (21:58)
[2018-07-11] MEDS: SODIUM CHLORIDE 0.9% IV SCH ×2 (02:00→18:12)
[2018-07-11] MEDS: POTASSIUM CHLORIDE IV SCH ×2 (02:00→18:12)
[2018-07-11 05:11] LABS: Calcium 8.6 MG/DL (8.5-10.1); Osmolality,Calculated 286.4 MOS/KG (273-304); Potassium 3.5 MMOL/L (3.5-5.1)
[2018-07-11] MEDS: LEVOTHYROXINE 25 MCG TABLET PO SCH (06:01)
[2018-07-11] MEDS: FUROSEMIDE 20 MG/2 ML VIAL IV SCH (08:23)
[2018-07-11] MEDS ORDERED: CHLORTHALIDONE 25 MG TABLET PO SCH (09:00)
[2018-07-11] MEDS: DOXAZOSIN 4 MG TABLET PO SCH (09:02)
[2018-07-11] MEDS: GLIMEPIRIDE 2 MG TABLET PO SCH ×2 (09:02→16:15)
[2018-07-11] MEDS: FERROUS SULFATE 325 MG TABLET PO SCH (09:02)
[2018-07-11] MEDS: MAGNESIUM CHLORIDE 64 MG TABLET PO SCH ×2 (09:03→22:06)
[2018-07-11] MEDS: OMEGA 3 ACID ETHYL ESTERS 1 GM CAPSULE PO SCH (09:04)
[2018-07-11] MEDS: PANTOPRAZOLE 40 MG TABLET PO SCH (09:04)
[2018-07-11] MEDS: DOCUSATE SODIUM 100 MG CAPSULE PO SCH ×2 (09:04→22:06)
[2018-07-11] MEDS: MULTIVITAMIN (CENTRUM) TABLET PO SCH (09:04)
[2018-07-11] MEDS: BUTALBITAL/ACETAMIN/CAFFEINE 50-325-40 MG TABLET PO SCH (09:05)
[2018-07-11] MEDS: CARVEDILOL 6.25 MG TABLET PO SCH ×2 (09:05→16:15)
[2018-07-11] MEDS: ISOSORBIDE MONONITRATE 30 MG TABLET PO SCH (09:05)
[2018-07-11] MEDS: ASPIRIN EC 81 MG TABLET PO SCH (09:05)
[2018-07-11] MEDS: INSULIN GLARGINE 100 UNIT/ML SUBCUT SCH ×2 (09:08→14:29)
[2018-07-11] MEDS: INSULIN LISPRO 100 UNIT/ML SUBCUT SCH ×4 (09:19→22:05)
[2018-07-11] MEDS: AZITHROMYCIN INJ 250 MG in SODIUM CHLORIDE 0.9% 250 ML IV SCH (14:30)
[2018-07-11] MEDS: POTASSIUM CHLORIDE 20 MEQ TABLET PO SCH (16:15)
[2018-07-11] MEDS: POLYVINYL ALCOHOL 1.4% OPH SOLN 15 ML BOTTLE BOTH EYES SCH (22:05)
[2018-07-11] MEDS: SIMVASTATIN 10 MG TABLET PO SCH (22:06)
[2018-07-12] MEDS: POTASSIUM CHLORIDE IV SCH ×2 (00:27→15:24)
[2018-07-12] MEDS: SODIUM CHLORIDE 0.9% IV SCH ×2 (00:27→15:24)
[2018-07-12 04:21] LABS: Calcium 8.2 MG/DL (8.5-10.1); Osmolality,Calculated 286.7 MOS/KG (273-304); Potassium 3.9 MMOL/L (3.5-5.1)
[2018-07-12] MEDS: LEVOTHYROXINE 25 MCG TABLET PO SCH (07:24)
[2018-07-12] MEDS: INSULIN GLARGINE 100 UNIT/ML SUBCUT SCH (08:50)
[2018-07-12] MEDS: GLIMEPIRIDE 2 MG TABLET PO SCH ×2 (08:51→17:52)
[2018-07-12] MEDS: ASPIRIN EC 81 MG TABLET PO SCH (08:51)
[2018-07-12] MEDS: FUROSEMIDE 20 MG/2 ML VIAL IV SCH (08:51)
[2018-07-12] MEDS: DOCUSATE SODIUM 100 MG CAPSULE PO SCH ×2 (08:51→21:05)
[2018-07-12] MEDS: MAGNESIUM CHLORIDE 64 MG TABLET PO SCH ×2 (08:51→21:02)
[2018-07-12] MEDS: POTASSIUM CHLORIDE 20 MEQ TABLET PO SCH (08:52)
[2018-07-12] MEDS: CARVEDILOL 6.25 MG TABLET PO SCH ×2 (08:52→17:52)
[2018-07-12] MEDS: OMEGA 3 ACID ETHYL ESTERS 1 GM CAPSULE PO SCH (08:52)
[2018-07-12] MEDS: PANTOPRAZOLE 40 MG TABLET PO SCH (08:52)
[2018-07-12] MEDS: MULTIVITAMIN (CENTRUM) TABLET PO SCH (08:52)
[2018-07-12] MEDS: DOXAZOSIN 4 MG TABLET PO SCH (08:52)
[2018-07-12] MEDS: FERROUS SULFATE 325 MG TABLET PO SCH (08:52)
[2018-07-12] MEDS: ISOSORBIDE MONONITRATE 30 MG TABLET PO SCH (08:52)
[2018-07-12] MEDS: INSULIN LISPRO 100 UNIT/ML SUBCUT SCH ×4 (08:53→21:06)
[2018-07-12] MEDS: BUTALBITAL/ACETAMIN/CAFFEINE 50-325-40 MG TABLET PO SCH (09:02)
[2018-07-12] MEDS: MAGNESIUM HYDROXIDE SUSP 30 ML UDCUP PO PRN (11:56)
[2018-07-12] MEDS: AZITHROMYCIN INJ 250 MG in SODIUM CHLORIDE 0.9% 250 ML IV SCH (13:58)
[2018-07-12] MEDS: SIMVASTATIN 10 MG TABLET PO SCH (21:05)
[2018-07-12] MEDS: POLYVINYL ALCOHOL 1.4% OPH SOLN 15 ML BOTTLE BOTH EYES SCH (21:07)
[2018-07-12] MEDS ORDERED: INSULIN GLARGINE 100 UNIT/ML SUBCUT SCH (22:08)
[2018-07-13 05:38] LABS: Calcium 8.8 MG/DL (8.5-10.1); Osmolality,Calculated 285.5 MOS/KG (273-304)
[2018-07-13] MEDS: LEVOTHYROXINE 25 MCG TABLET PO SCH (06:02)
[2018-07-13] MEDS: GLIMEPIRIDE 2 MG TABLET PO SCH ×3 (08:40→17:20)
[2018-07-13] MEDS: INSULIN LISPRO 100 UNIT/ML SUBCUT SCH ×4 (08:40→21:55)
[2018-07-13] MEDS: FUROSEMIDE 20 MG/2 ML VIAL IV SCH (09:45)
[2018-07-13] MEDS: DOCUSATE SODIUM 100 MG CAPSULE PO SCH ×2 (09:46→21:55)
[2018-07-13] MEDS: PANTOPRAZOLE 40 MG TABLET PO SCH (09:46)
[2018-07-13] MEDS: POTASSIUM CHLORIDE 20 MEQ TABLET PO SCH (09:46)
[2018-07-13] MEDS: OMEGA 3 ACID ETHYL ESTERS 1 GM CAPSULE PO SCH (09:46)
[2018-07-13] MEDS: ASPIRIN EC 81 MG TABLET PO SCH (09:46)
[2018-07-13] MEDS: ISOSORBIDE MONONITRATE 30 MG TABLET PO SCH (09:47)
[2018-07-13] MEDS: MAGNESIUM CHLORIDE 64 MG TABLET PO SCH ×2 (09:47→21:55)
[2018-07-13] MEDS: FERROUS SULFATE 325 MG TABLET PO SCH (09:47)
[2018-07-13] MEDS: CARVEDILOL 6.25 MG TABLET PO SCH ×2 (09:47→17:20)
[2018-07-13] MEDS: MULTIVITAMIN (CENTRUM) TABLET PO SCH (09:47)
[2018-07-13] MEDS: DOXAZOSIN 4 MG TABLET PO SCH (09:51)
[2018-07-13] MEDS: BUTALBITAL/ACETAMIN/CAFFEINE 50-325-40 MG TABLET PO SCH (09:51)
[2018-07-13] MEDS ORDERED: GLUCAGON 1 MG VIAL IM PRN (09:55)
[2018-07-13] MEDS ORDERED: DEXTROSE 50% 25 GM/50 ML VIAL IV PRN (09:55)
[2018-07-13] MEDS: POTASSIUM CHLORIDE IV SCH (10:28)
[2018-07-13] MEDS: SODIUM CHLORIDE 0.9% IV SCH (10:28)
[2018-07-13] MEDS: MAGNESIUM HYDROXIDE SUSP 30 ML UDCUP PO PRN (11:25)
[2018-07-13] MEDS: AZITHROMYCIN INJ 250 MG in SODIUM CHLORIDE 0.9% 250 ML IV SCH (15:28)
[2018-07-13] MEDS ORDERED: INSULIN GLARGINE 100 UNIT/ML SUBCUT SCH (21:52)
[2018-07-13] MEDS: POLYVINYL ALCOHOL 1.4% OPH SOLN 15 ML BOTTLE BOTH EYES SCH (21:55)
[2018-07-13] MEDS: SIMVASTATIN 10 MG TABLET PO SCH (21:55)
[2018-07-13] MEDS ORDERED: KETOROLAC 15 MG/1 ML VIAL IV ONE (21:56)
[2018-07-14 04:25] LABS: Basophils % 0.5 % (0.0-0.8); Eosinophils # 0.3 10*3/uL (0.0-0.87); Eosinophils % 3.8 % (0.00-10.9); Hematocrit 25.2 VOL% (35.7-47.0); Immature Granulocytes % 0.4 %; Immature Granulocytes Absolute 0.03 #; Lymphocytes # 1.9 10*3/uL (1.4-4.0); Lymphocytes % 22.6 % (21.3-54.2); Mean Corpuscular HGB Conc 31.7 GM/DL (32-36); Mean Corpuscular Hemoglobin 30 PG (27-34); Mean Corpuscular Volume 94.7 FL (87-102); Mean Platelet Volume 13.2 FL (9.6-12.0); Neutrophils % 60.7 % (38.7-73.9); Platelet Count 185 T/CUMM (130-400); Red Blood Count 2.66 MC/CUMM (3.8-5.5); Red Cell Distribution Width 12.7 % (9.3-17.3); White Blood Count 8.2 T/CUMM (4-12)
[2018-07-14 04:52] LABS: Calcium 8.6 MG/DL (8.5-10.1); Osmolality,Calculated 285.5 MOS/KG (273-304)
[2018-07-14] MEDS: ALBUTEROL/IPRATROPIUM 3 ML NEB RESP TX SCH ×4 (05:27→20:29)
[2018-07-14] MEDS: LEVOTHYROXINE 25 MCG TABLET PO SCH (06:01)
[2018-07-14] MEDS: INSULIN LISPRO 100 UNIT/ML SUBCUT SCH ×4 (07:35→21:25)
[2018-07-14] MEDS: FUROSEMIDE 20 MG/2 ML VIAL IV SCH (08:15)
[2018-07-14] MEDS: ISOSORBIDE MONONITRATE 30 MG TABLET PO SCH (08:15)
[2018-07-14] MEDS: MAGNESIUM CHLORIDE 64 MG TABLET PO SCH ×2 (08:15→21:20)
[2018-07-14] MEDS: CARVEDILOL 6.25 MG TABLET PO SCH ×2 (08:16→16:56)
[2018-07-14] MEDS: MULTIVITAMIN (CENTRUM) TABLET PO SCH (08:16)
[2018-07-14] MEDS: DOCUSATE SODIUM 100 MG CAPSULE PO SCH ×2 (08:16→21:21)
[2018-07-14] MEDS: DOXAZOSIN 4 MG TABLET PO SCH (08:16)
[2018-07-14] MEDS: PANTOPRAZOLE 40 MG TABLET PO SCH (08:16)
[2018-07-14] MEDS: OMEGA 3 ACID ETHYL ESTERS 1 GM CAPSULE PO SCH (08:17)
[2018-07-14] MEDS: BUTALBITAL/ACETAMIN/CAFFEINE 50-325-40 MG TABLET PO SCH (08:17)
[2018-07-14] MEDS: POTASSIUM CHLORIDE 20 MEQ TABLET PO SCH (08:17)
[2018-07-14] MEDS: GLIMEPIRIDE 2 MG TABLET PO SCH ×2 (08:17→16:55)
[2018-07-14] MEDS: ASPIRIN EC 81 MG TABLET PO SCH (08:18)
[2018-07-14] MEDS: FERROUS SULFATE 325 MG TABLET PO SCH (08:23)
[2018-07-14] MEDS: AZITHROMYCIN INJ 250 MG in SODIUM CHLORIDE 0.9% 250 ML IV SCH (13:41)
[2018-07-14] MEDS ORDERED: BISACODYL 10 MG SUPP RECTAL PRN (13:57)
[2018-07-14] MEDS: MAGNESIUM HYDROXIDE SUSP 30 ML UDCUP PO PRN (15:24)
[2018-07-14] MEDS: SIMVASTATIN 10 MG TABLET PO SCH (21:21)
[2018-07-14] MEDS: POLYVINYL ALCOHOL 1.4% OPH SOLN 15 ML BOTTLE BOTH EYES SCH (21:23)
[2018-07-15] MEDS: ALBUTEROL/IPRATROPIUM 3 ML NEB RESP TX SCH ×5 (00:01→20:01)
[2018-07-15 05:36] LABS: Basophils % 0.5 % (0.0-0.8); Eosinophils # 0.3 10*3/uL (0.0-0.87); Eosinophils % 3.5 % (0.00-10.9); Hematocrit 26.1 VOL% (35.7-47.0); Hemoglobin 8.4 GM/DL (12.0-16.0); Immature Granulocytes % 0.5 %; Immature Granulocytes Absolute 0.04 #; Lymphocytes # 1.5 10*3/uL (1.4-4.0); Lymphocytes % 17.6 % (21.3-54.2); Mean Corpuscular HGB Conc 32.2 GM/DL (32-36); Mean Corpuscular Hemoglobin 31 PG (27-34); Mean Corpuscular Volume 94.9 FL (87-102); Mean Platelet Volume 13.1 FL (9.6-12.0); Monocytes # 0.9 10*3/uL (0.11-0.8); Monocytes % 10.3 % (1.7-12.7); Neutrophils # 5.7 10*3/uL (1.4-7.4); Neutrophils % 67.6 % (38.7-73.9); Platelet Count 223 T/CUMM (130-400); Red Blood Count 2.75 MC/CUMM (3.8-5.5); Red Cell Distribution Width 12.6 % (9.3-17.3); White Blood Count 8.4 T/CUMM (4-12)
[2018-07-15 05:52] LABS: Calcium 9.1 MG/DL (8.5-10.1); Osmolality,Calculated 288.4 MOS/KG (273-304); Potassium 4.2 MMOL/L (3.5-5.1)
[2018-07-15] MEDS: LEVOTHYROXINE 25 MCG TABLET PO SCH (06:51)
[2018-07-15] MEDS: INSULIN LISPRO 100 UNIT/ML SUBCUT SCH ×4 (08:27→21:35)
[2018-07-15] MEDS: MULTIVITAMIN (CENTRUM) TABLET PO SCH (08:30)
[2018-07-15] MEDS: MAGNESIUM CHLORIDE 64 MG TABLET PO SCH ×2 (08:30→21:35)
[2018-07-15] MEDS: ASPIRIN EC 81 MG TABLET PO SCH (08:31)
[2018-07-15] MEDS: DOCUSATE SODIUM 100 MG CAPSULE PO SCH ×2 (08:31→21:35)
[2018-07-15] MEDS: DOXAZOSIN 4 MG TABLET PO SCH (08:31)
[2018-07-15] MEDS: GLIMEPIRIDE 2 MG TABLET PO SCH ×2 (08:31→16:23)
[2018-07-15] MEDS: OMEGA 3 ACID ETHYL ESTERS 1 GM CAPSULE PO SCH (08:31)
[2018-07-15] MEDS: BUTALBITAL/ACETAMIN/CAFFEINE 50-325-40 MG TABLET PO SCH (08:31)
[2018-07-15] MEDS: FERROUS SULFATE 325 MG TABLET PO SCH (08:31)
[2018-07-15] MEDS: CARVEDILOL 6.25 MG TABLET PO SCH ×2 (08:32→16:23)
[2018-07-15] MEDS: POTASSIUM CHLORIDE 20 MEQ TABLET PO SCH (08:32)
[2018-07-15] MEDS: PANTOPRAZOLE 40 MG TABLET PO SCH (08:32)
[2018-07-15] MEDS: FUROSEMIDE 20 MG/2 ML VIAL IV SCH (08:32)
[2018-07-15] MEDS: ISOSORBIDE MONONITRATE 30 MG TABLET PO SCH (08:32)
[2018-07-15] MEDS: hydroCHLOROthiazide 12.5 MG CAPSULE PO SCH (11:05)
[2018-07-15] MEDS: AZITHROMYCIN INJ 250 MG in SODIUM CHLORIDE 0.9% 250 ML IV SCH (14:01)
[2018-07-15] MEDS: POLYVINYL ALCOHOL 1.4% OPH SOLN 15 ML BOTTLE BOTH EYES SCH (21:34)
[2018-07-15] MEDS: SIMVASTATIN 10 MG TABLET PO SCH (21:35)
[2018-07-16] MEDS: ALBUTEROL/IPRATROPIUM 3 ML NEB RESP TX SCH ×4 (01:52→18:58)
[2018-07-16 05:34] LABS: Osmolality,Calculated 286.5 MOS/KG (273-304)
[2018-07-16] MEDS: LEVOTHYROXINE 25 MCG TABLET PO SCH (06:18)
[2018-07-16] MEDS: GLIMEPIRIDE 2 MG TABLET PO SCH ×2 (07:58→16:20)
[2018-07-16] MEDS: OMEGA 3 ACID ETHYL ESTERS 1 GM CAPSULE PO SCH ×2 (07:58→09:34)
[2018-07-16] MEDS: INSULIN LISPRO 100 UNIT/ML SUBCUT SCH ×4 (07:58→21:30)
[2018-07-16] MEDS: CARVEDILOL 6.25 MG TABLET PO SCH ×2 (07:58→16:10)
[2018-07-16] MEDS: ASPIRIN EC 81 MG TABLET PO SCH ×2 (07:58→08:10)
[2018-07-16] MEDS: MULTIVITAMIN (CENTRUM) TABLET PO SCH ×2 (07:58→08:10)
[2018-07-16] MEDS: DOXAZOSIN 4 MG TABLET PO SCH (07:59)
[2018-07-16] MEDS: POTASSIUM CHLORIDE 20 MEQ TABLET PO SCH (07:59)
[2018-07-16] MEDS: DOCUSATE SODIUM 100 MG CAPSULE PO SCH ×2 (07:59→21:30)
[2018-07-16] MEDS: ISOSORBIDE MONONITRATE 30 MG TABLET PO SCH (07:59)
[2018-07-16] MEDS: FERROUS SULFATE 325 MG TABLET PO SCH (07:59)
[2018-07-16] MEDS: hydroCHLOROthiazide 12.5 MG CAPSULE PO SCH (07:59)
[2018-07-16] MEDS: PANTOPRAZOLE 40 MG TABLET PO SCH (07:59)
[2018-07-16] MEDS: BUTALBITAL/ACETAMIN/CAFFEINE 50-325-40 MG TABLET PO SCH (07:59)
[2018-07-16] MEDS: MAGNESIUM CHLORIDE 64 MG TABLET PO SCH ×2 (08:00→21:30)
[2018-07-16] MEDS ORDERED: SODIUM CHLORIDE 0.9% 1,000 ML IV PRN (08:14)
[2018-07-16] MEDS ORDERED: FUROSEMIDE 40 MG/4 ML VIAL IV ONE (08:38)
[2018-07-16] MEDS: FUROSEMIDE 20 MG/2 ML VIAL IV SCH (09:11)
[2018-07-16] MEDS: ACETAMINOPHEN 325 MG TABLET PO PRN (16:10)
[2018-07-16] MEDS ORDERED: cloNIDine 0.1 MG TABLET PO PRN (16:42)
[2018-07-16] MEDS ORDERED: amLODIPine 2.5 MG TABLET PO ONE (17:24)
[2018-07-16] MEDS: AZITHROMYCIN INJ 250 MG in SODIUM CHLORIDE 0.9% 250 ML IV SCH (17:34)
[2018-07-16 17:45] LABS: Hematocrit 32.2 VOL% (35.7-47.0); Hemoglobin 10.7 GM/DL (12.0-16.0)
[2018-07-16] MEDS: POLYVINYL ALCOHOL 1.4% OPH SOLN 15 ML BOTTLE BOTH EYES SCH (21:30)
[2018-07-16] MEDS: SIMVASTATIN 10 MG TABLET PO SCH (21:30)
[2018-07-17] MEDS: ALBUTEROL/IPRATROPIUM 3 ML NEB RESP TX SCH ×3 (00:31→12:11)
[2018-07-17 05:03] LABS: Basophils # 0.1 10*3/uL (0.0-0.2); Basophils % 0.7 % (0.0-0.8); Eosinophils # 0.4 10*3/uL (0.0-0.87); Eosinophils % 3.9 % (0.00-10.9); Hematocrit 31.9 VOL% (35.7-47.0); Hemoglobin 10.5 GM/DL (12.0-16.0); Immature Granulocytes % 0.9 %; Immature Granulocytes Absolute 0.08 #; Lymphocytes # 1.6 10*3/uL (1.4-4.0); Lymphocytes % 17.1 % (21.3-54.2); Mean Corpuscular HGB Conc 32.9 GM/DL (32-36); Mean Corpuscular Hemoglobin 30 PG (27-34); Mean Corpuscular Volume 90.1 FL (87-102); Mean Platelet Volume 12.4 FL (9.6-12.0); Monocytes # 1.2 10*3/uL (0.11-0.8); Monocytes % 13.3 % (1.7-12.7); Neutrophils # 5.9 10*3/uL (1.4-7.4); Neutrophils % 64.1 % (38.7-73.9); Platelet Count 258 T/CUMM (130-400); Red Blood Count 3.54 MC/CUMM (3.8-5.5); Red Cell Distribution Width 14.1 % (9.3-17.3); White Blood Count 9.2 T/CUMM (4-12)
[2018-07-17 05:25] LABS: Albumin 2.6 G/DL (3.4-5.0); Bilirubin,Total 0.6 MG/DL (0.2-1.0); Osmolality,Calculated 288.4 MOS/KG (273-304); Potassium 3.5 MMOL/L (3.5-5.1); Total Protein 6.8 G/DL (6.4-8.3)
[2018-07-17] MEDS: LEVOTHYROXINE 25 MCG TABLET PO SCH (06:39)
[2018-07-17] MEDS: INSULIN LISPRO 100 UNIT/ML SUBCUT SCH ×2 (07:49→11:58)
[2018-07-17] MEDS: FUROSEMIDE 20 MG/2 ML VIAL IV SCH (08:47)
[2018-07-17] MEDS: MAGNESIUM CHLORIDE 64 MG TABLET PO SCH (09:13)
[2018-07-17] MEDS: ASPIRIN EC 81 MG TABLET PO SCH (09:13)
[2018-07-17] MEDS: POTASSIUM CHLORIDE 20 MEQ TABLET PO SCH (09:14)
[2018-07-17] MEDS: OMEGA 3 ACID ETHYL ESTERS 1 GM CAPSULE PO SCH (09:14)
[2018-07-17] MEDS: hydroCHLOROthiazide 12.5 MG CAPSULE PO SCH (09:14)
[2018-07-17] MEDS: BUTALBITAL/ACETAMIN/CAFFEINE 50-325-40 MG TABLET PO SCH (09:14)
[2018-07-17] MEDS: CARVEDILOL 6.25 MG TABLET PO SCH (09:16)
[2018-07-17] MEDS: DOXAZOSIN 4 MG TABLET PO SCH (09:16)
[2018-07-17] MEDS: MULTIVITAMIN (CENTRUM) TABLET PO SCH (09:16)
[2018-07-17] MEDS: PANTOPRAZOLE 40 MG TABLET PO SCH (09:16)
[2018-07-17] MEDS: GLIMEPIRIDE 2 MG TABLET PO SCH (09:16)
[2018-07-17] MEDS: DOCUSATE SODIUM 100 MG CAPSULE PO SCH (09:17)
[2018-07-17] MEDS: ISOSORBIDE MONONITRATE 30 MG TABLET PO SCH (09:40)
[2018-07-17 11:02] VITALS: BP 150/46
[2018-07-18] MEDS ORDERED: amLODIPine 5 MG TABLET PO SCH (09:00)
== END 2018-07-17 13:02 | disposition swing bed (61) | DRG 312 ==
LOC: N.ED 11:45 → N.EDINP 13:56 → N.TELEN 14:40
PROVIDERS: ADMIT Internal Medicine; ATTEND Internal Medicine

== ENCOUNTER 2019-08-28 22:42 | Inpatient (IN) ==
[2019-08-28 23:32] LABS: Basophils # 0.1 10*3/uL (0.0-0.2); Basophils % 0.5 % (0.0-0.8); Eosinophils # 0.3 10*3/uL (0.0-0.87); Eosinophils % 2.4 % (0.00-10.9); Hematocrit 32.1 VOL% (35.7-47.0); Hemoglobin 10.3 GM/DL (12.0-16.0); Immature Granulocytes % 0.5 %; Immature Granulocytes Absolute 0.07 #; Lymphocytes # 1.4 10*3/uL (1.4-4.0); Lymphocytes % 10.6 % (21.3-54.2); Mean Corpuscular HGB Conc 32.1 GM/DL (32-36); Mean Corpuscular Volume 95.5 FL (87-102); Mean Platelet Volume 11.7 FL (9.6-12.0); Monocytes % 8.1 % (1.7-12.7); Neutrophils % 77.9 % (38.7-73.9); Platelet Count 254 T/CUMM (130-400); Red Blood Count 3.36 MC/CUMM (3.8-5.5)
[2019-08-28 23:43] LABS: PT Patient Result 10.9 SECS (9.8-11.9); Partial Thromboplastin Time 31.2 SECS (23.9-33.8)
[2019-08-28 23:50] LABS: Alanine Aminotransferase 20 U/L (13-56); Albumin 3.5 G/DL (3.4-5.0); Alkaline Phosphatase 91 U/L (45-117); Aspartate Amino Transferase 20 U/L (0-37); Blood Urea Nitrogen 41 MG/DL (7-18); Calcium 9.6 MG/DL (8.5-10.1); Estimated Glom Filtration Rate 37 ML/MIN; Glucose 179 MG/DL (74-106); Total Protein 8.1 G/DL (6.4-8.3); Troponin I 0.017 NG/ML (0.00-0.045)
[2019-08-29] MEDS ORDERED: ACETAMINOPHEN 500 MG TABLET PO PRN (00:13)
[2019-08-29] MEDS ORDERED: ONDANSETRON 4 MG/2 ML VIAL IV PRN (00:13)
[2019-08-29 00:26] LABS: Apearance,Urine CLEAR (Clear); Barbiturates Screen,Urine Negative (Negative); Benzodiazepines Screen,Urine Negative (Negative); Bilirubin,Urine Negative (Negative); Blood, Urine Negative (Negative); Cannabinoid Screen,Urine Negative (Negative); Glucose,Urine (UA) Negative (Negative); Ketones,Urine Negative (Negative); Mucus,Urine Occasional /LPF (Occasional); Nitrite,Urine Negative (Negative); Opiate Screen,Urine Negative (Negative); Phencyclidine Screen,Urine Negative (Negative); Protein,Urine 30 MG/DL; RBC,Urine <1 /HPF (0-4); Squamous Epithelial Cell,Urine Occasional /HPF (0-10); Urine Color Straw (Yellow); Urine Specific Gravity 1.009 (1.001-1.035); Urine Urobilinogen < 2.0 EU/DL (0.2-1.0); WBC,Urine <1 /HPF (0-6)
[2019-08-29] MEDS: SODIUM CHLORIDE 0.9% 1,000 ML IV SCH ×2 (02:08→20:54)
[2019-08-29] MEDS: LEVOTHYROXINE 25 MCG TABLET PO SCH (06:13)
[2019-08-29] MEDS: ASPIRIN EC 81 MG TABLET PO SCH ×2 (08:06→09:37)
[2019-08-29] MEDS: CLOPIDOGREL 75 MG TABLET PO SCH (08:06)
[2019-08-29] MEDS: ISOSORBIDE MONONITRATE 30 MG TABLET PO SCH (08:06)
[2019-08-29] MEDS: carvediloL 6.25 MG TABLET PO SCH ×2 (08:06→16:12)
[2019-08-29] MEDS: FERROUS SULFATE 325 MG TABLET PO SCH (08:06)
[2019-08-29] MEDS: amLODIPine 5 MG TABLET PO SCH (08:06)
[2019-08-29] MEDS: PANTOPRAZOLE 40 MG TABLET PO SCH (08:06)
[2019-08-29] MEDS: DOXAZOSIN 1 MG TABLET PO SCH (08:06)
[2019-08-29] MEDS: DOCUSATE SODIUM 100 MG CAPSULE PO SCH (08:11)
[2019-08-29] MEDS ORDERED: TEMAZEPAM 7.5 MG CAPSULE PO PRN (14:59)
[2019-08-29] MEDS: INSULIN REGULAR 100 UNIT/ML SUBCUT SCH ×2 (15:47→23:06)
[2019-08-29] MEDS ORDERED: TEMAZEPAM 7.5 MG CAPSULE PO ONE (21:00)
[2019-08-29] MEDS ORDERED: SIMVASTATIN 10 MG TABLET PO SCH ×2 (21:00)
[2019-08-29] MEDS ORDERED: SIMVASTATIN 40 MG TABLET PO SCH (21:00)
[2019-08-29] MEDS ORDERED: ASPIRIN EC 81 MG TABLET PO SCH (21:00)
[2019-08-29] MEDS ORDERED: PEG PROPYLENE GLYCOL BOTH EYES SCH (21:00)
[2019-08-30] MEDS: SODIUM CHLORIDE 0.9% 1,000 ML IV SCH (01:21)
[2019-08-30] MEDS: DOCUSATE SODIUM 100 MG CAPSULE PO SCH ×2 (01:51→09:35)
[2019-08-30] MEDS: LEVOTHYROXINE 25 MCG TABLET PO SCH (05:43)
[2019-08-30 06:45] LABS: Basophils % 0.2 % (0.0-0.8); Eosinophils # 0.1 10*3/uL (0.0-0.87); Eosinophils % 1.1 % (0.00-10.9); Hematocrit 29.1 VOL% (35.7-47.0); Hemoglobin 9.3 GM/DL (12.0-16.0); Immature Granulocytes % 0.2 %; Immature Granulocytes Absolute 0.02 #; Lymphocytes # 1.2 10*3/uL (1.4-4.0); Lymphocytes % 14.9 % (21.3-54.2); Mean Corpuscular Volume 94.2 FL (87-102); Mean Platelet Volume 12.6 FL (9.6-12.0); Monocytes % 10.4 % (1.7-12.7); Neutrophils % 73.2 % (38.7-73.9); Platelet Count 209 T/CUMM (130-400); Red Blood Count 3.09 MC/CUMM (3.8-5.5); Red Cell Distribution Width 12.3 % (9.3-17.3)
[2019-08-30 07:15] LABS: Albumin 3.1 G/DL (3.4-5.0); Bilirubin,Total 0.6 MG/DL (0.2-1.0); Calcium 9.1 MG/DL (8.5-10.1); Osmolality,Calculated 284.7 MOS/KG (273-304)
[2019-08-30] MEDS: INSULIN REGULAR 100 UNIT/ML SUBCUT SCH ×2 (08:55→11:59)
[2019-08-30] MEDS ORDERED: INSULIN GLARGINE 100 UNIT/ML SUBCUT SCH (09:00)
[2019-08-30] MEDS: carvediloL 6.25 MG TABLET PO SCH (09:35)
[2019-08-30] MEDS: FERROUS SULFATE 325 MG TABLET PO SCH (09:35)
[2019-08-30] MEDS: ISOSORBIDE MONONITRATE 30 MG TABLET PO SCH (09:35)
[2019-08-30] MEDS: DOXAZOSIN 1 MG TABLET PO SCH (09:35)
[2019-08-30] MEDS: PANTOPRAZOLE 40 MG TABLET PO SCH (09:35)
[2019-08-30] MEDS: CLOPIDOGREL 75 MG TABLET PO SCH (09:35)
[2019-08-30] MEDS: amLODIPine 5 MG TABLET PO SCH (09:36)
[2019-08-30 12:39] VITALS: BP 191/80
== END 2019-08-30 14:19 | DRG 65 ==
LOC: EDUNIT# → EDBD → N.ED 22:42 → N.EDINP 08-29 00:10 → N.TELES 08-29 03:07
PROVIDERS: ADMIT Internal Medicine; ATTEND Internal Medicine

== ENCOUNTER 2019-09-17 11:00 | Observation (INO) ==
[2019-09-17 12:29] LABS: Basophils % 0.3 % (0.0-0.8); Eosinophils # 0.4 10*3/uL (0.0-0.87); Eosinophils % 3.6 % (0.00-10.9); Hematocrit 30.7 VOL% (35.7-47.0); Hemoglobin 9.7 GM/DL (12.0-16.0); Immature Granulocytes % 0.6 %; Immature Granulocytes Absolute 0.07 #; Lymphocytes # 1.1 10*3/uL (1.4-4.0); Lymphocytes % 8.8 % (21.3-54.2); Mean Corpuscular HGB Conc 31.6 GM/DL (32-36); Mean Corpuscular Volume 96.8 FL (87-102); Neutrophils % 80.7 % (38.7-73.9); Platelet Count 234 T/CUMM (130-400); Red Blood Count 3.17 MC/CUMM (3.8-5.5); Red Cell Distribution Width 12.4 % (9.3-17.3); White Blood Count 12.1 T/CUMM (4-12)
[2019-09-17 12:40] LABS: Apearance,Urine CLOUDY (Clear); Bilirubin,Urine Negative (Negative); Blood, Urine Negative (Negative); Glucose,Urine (UA) Negative (Negative); Ketones,Urine Negative (Negative); Nitrite,Urine Positive (Negative); Protein,Urine Negative; RBC,Urine 12 /HPF (0-4); Urine Color Yellow (Yellow); Urine Specific Gravity 1.017 (1.001-1.035); Urine Urobilinogen < 2.0 EU/DL (0.2-1.0); WBC,Urine 172 /HPF (0-6)
[2019-09-17 12:58] LABS: Bilirubin,Total 0.4 MG/DL (0.2-1.0); Calcium 9.4 MG/DL (8.5-10.1); Osmolality,Calculated 297.7 MOS/KG (273-304)
[2019-09-17] MEDS ORDERED: ONDANSETRON 4 MG/2 ML VIAL IV PRN (13:13)
[2019-09-17] MEDS ORDERED: LEVOFLOXACIN INJ 500 MG in PREMIX 1 EACH IV STA (13:15)
[2019-09-17] MEDS ORDERED: TEMAZEPAM 7.5 MG CAPSULE PO PRN (14:57)
[2019-09-17] MEDS ORDERED: BISACODYL 5 MG TABLET PO PRN (14:57)
[2019-09-17] MEDS ORDERED: GLUCAGON 1 MG VIAL SUBCUT PRN (14:57)
[2019-09-17] MEDS ORDERED: MAGNESIUM HYDROXIDE SUSP 30 ML UDCUP PO PRN (14:57)
[2019-09-17] MEDS ORDERED: NON-FORMULARY MEDICATION (Guaifenesin 400 MG) PO PRN (14:57)
[2019-09-17] MEDS ORDERED: BISACODYL 10 MG SUPP RECTAL PRN (14:57)
[2019-09-17] MEDS ORDERED: ALUMINUM/MAGNES/SIMETH MAX STR 30 ML UDCUP PO PRN (14:57)
[2019-09-17] MEDS ORDERED: ONDANSETRON 4 MG TABLET PO PRN (14:57)
[2019-09-17] MEDS: SODIUM CHLORIDE 0.9% 1,000 ML IV SCH (16:20)
[2019-09-17] MEDS: carvediloL 6.25 MG TABLET PO SCH (18:00)
[2019-09-17] MEDS: DOCUSATE SODIUM 100 MG CAPSULE PO SCH ×2 (20:58→21:18)
[2019-09-17] MEDS: CARBOXYMETHYLCELLULOSE 1% OPH SOLN BOTH EYES SCH (21:18)
[2019-09-17] MEDS: MAGNESIUM CHLORIDE 64 MG TABLET PO SCH (21:18)
[2019-09-17] MEDS: FERROUS SULFATE 325 MG TABLET PO SCH (21:18)
[2019-09-17] MEDS: ZINC OXIDE PASTE 113 GM TUBE TOP SCH (21:18)
[2019-09-17] MEDS: SIMVASTATIN 10 MG TABLET PO SCH (21:18)
[2019-09-18] MEDS: SODIUM CHLORIDE 0.9% 1,000 ML IV SCH ×3 (02:31→23:36)
[2019-09-18] MEDS: LEVOTHYROXINE 25 MCG TABLET PO SCH (06:37)
[2019-09-18 07:10] LABS: Basophils % 0.5 % (0.0-0.8); Eosinophils # 0.4 10*3/uL (0.0-0.87); Eosinophils % 5.3 % (0.00-10.9); Hematocrit 28.8 VOL% (35.7-47.0); Hemoglobin 9.3 GM/DL (12.0-16.0); Immature Granulocytes % 0.2 %; Immature Granulocytes Absolute 0.02 #; Lymphocytes # 1.1 10*3/uL (1.4-4.0); Lymphocytes % 13.3 % (21.3-54.2); Mean Corpuscular HGB Conc 32.3 GM/DL (32-36); Mean Corpuscular Volume 93.5 FL (87-102); Mean Platelet Volume 11.4 FL (9.6-12.0); Monocytes % 8.1 % (1.7-12.7); Neutrophils % 72.6 % (38.7-73.9); Platelet Count 201 T/CUMM (130-400); Red Blood Count 3.08 MC/CUMM (3.8-5.5); Red Cell Distribution Width 12.3 % (9.3-17.3); White Blood Count 8.2 T/CUMM (4-12)
[2019-09-18 08:59] LABS: Albumin 2.9 G/DL (3.4-5.0); Bilirubin,Total 0.5 MG/DL (0.2-1.0); Calcium 9.6 MG/DL (8.5-10.1); Osmolality,Calculated 291.3 MOS/KG (273-304); Total Protein 6.8 G/DL (6.4-8.3)
[2019-09-18] MEDS ORDERED: amLODIPine 5 MG TABLET PO SCH (09:00)
[2019-09-18] MEDS ORDERED: ISOSORBIDE MONONITRATE 30 MG TABLET PO SCH (09:00)
[2019-09-18] MEDS: DOXAZOSIN 1 MG TABLET PO SCH (09:07)
[2019-09-18] MEDS: MULTIVITAMIN (CENTRUM) TABLET PO SCH (09:07)
[2019-09-18] MEDS: ASPIRIN EC 81 MG TABLET PO SCH (09:07)
[2019-09-18] MEDS: carvediloL 6.25 MG TABLET PO SCH ×2 (09:07→17:06)
[2019-09-18] MEDS: FERROUS SULFATE 325 MG TABLET PO SCH ×2 (09:08→22:14)
[2019-09-18] MEDS: DOCUSATE SODIUM 100 MG CAPSULE PO SCH ×3 (09:08→22:14)
[2019-09-18] MEDS: INSULIN GLARGINE 100 UNIT/ML SUBCUT SCH (09:09)
[2019-09-18] MEDS: MAGNESIUM CHLORIDE 64 MG TABLET PO SCH ×2 (09:09→22:13)
[2019-09-18] MEDS: PANTOPRAZOLE 40 MG TABLET PO SCH (09:09)
[2019-09-18] MEDS: OMEGA 3 ACID ETHYL ESTERS 1 GM CAPSULE PO SCH (09:09)
[2019-09-18] MEDS: CLOPIDOGREL 75 MG TABLET PO SCH (09:09)
[2019-09-18] MEDS: LEVOFLOXACIN INJ 250 MG in PREMIX 1 EACH IV SCH (14:08)
[2019-09-18] MEDS ORDERED: amLODIPine 5 MG TABLET PO ONE (15:03)
[2019-09-18] MEDS ORDERED: amLODIPine 10 MG TABLET PO SCH (15:04)
[2019-09-18] MEDS: ZINC OXIDE PASTE 113 GM TUBE TOP SCH ×2 (15:39→22:14)
[2019-09-18] MEDS ORDERED: DEXTROSE 10% 250 ML BAG IV PRN (16:24)
[2019-09-18] MEDS ORDERED: GLUCAGON 1 MG VIAL IM PRN (16:24)
[2019-09-18] MEDS: CARBOXYMETHYLCELLULOSE 1% OPH SOLN BOTH EYES SCH (22:14)
[2019-09-18] MEDS: SIMVASTATIN 10 MG TABLET PO SCH (22:14)
[2019-09-19] MEDS: hydrALAZINE 20 MG/1 ML VIAL IV PRN (01:35)
[2019-09-19] MEDS: LEVOTHYROXINE 25 MCG TABLET PO SCH (06:49)
[2019-09-19] MEDS: carvediloL 6.25 MG TABLET PO SCH ×2 (08:52→18:35)
[2019-09-19] MEDS: DOXAZOSIN 1 MG TABLET PO SCH (08:52)
[2019-09-19] MEDS: MULTIVITAMIN (CENTRUM) TABLET PO SCH (08:52)
[2019-09-19] MEDS: INSULIN GLARGINE 100 UNIT/ML SUBCUT SCH (08:53)
[2019-09-19] MEDS: ZINC OXIDE PASTE 113 GM TUBE TOP SCH ×2 (08:53→21:04)
[2019-09-19] MEDS: ISOSORBIDE MONONITRATE 60 MG TABLET PO SCH (08:53)
[2019-09-19] MEDS: FERROUS SULFATE 325 MG TABLET PO SCH ×2 (08:53→21:04)
[2019-09-19] MEDS: DOCUSATE SODIUM 100 MG CAPSULE PO SCH ×2 (08:53→21:04)
[2019-09-19] MEDS: OMEGA 3 ACID ETHYL ESTERS 1 GM CAPSULE PO SCH (08:54)
[2019-09-19] MEDS: PANTOPRAZOLE 40 MG TABLET PO SCH (08:54)
[2019-09-19] MEDS: MAGNESIUM CHLORIDE 64 MG TABLET PO SCH ×2 (08:54→21:04)
[2019-09-19] MEDS: ASPIRIN EC 81 MG TABLET PO SCH (08:54)
[2019-09-19] MEDS: CLOPIDOGREL 75 MG TABLET PO SCH (08:54)
[2019-09-19 11:03] LABS: Basophils % 0.6 % (0.0-0.8); Eosinophils # 0.4 10*3/uL (0.0-0.87); Eosinophils % 6.1 % (0.00-10.9); Hematocrit 28.1 VOL% (35.7-47.0); Immature Granulocytes % 0.3 %; Immature Granulocytes Absolute 0.02 #; Lymphocytes # 1.1 10*3/uL (1.4-4.0); Lymphocytes % 15.4 % (21.3-54.2); Mean Corpuscular Volume 96.6 FL (87-102); Mean Platelet Volume 12.1 FL (9.6-12.0); Monocytes % 6.8 % (1.7-12.7); Neutrophils % 70.8 % (38.7-73.9); Platelet Count 205 T/CUMM (130-400); Red Blood Count 2.91 MC/CUMM (3.8-5.5); Red Cell Distribution Width 12.3 % (9.3-17.3); White Blood Count 6.9 T/CUMM (4-12)
[2019-09-19] MEDS: cloNIDine 0.1 MG TABLET PO ONE ×3 (11:52→16:37)
[2019-09-19] MEDS: SODIUM CHLORIDE 0.9% 1,000 ML IV SCH (12:11)
[2019-09-19] MEDS: LEVOFLOXACIN INJ 250 MG in PREMIX 1 EACH IV SCH (15:23)
[2019-09-19] MEDS ORDERED: LACTULOSE 20 GM/30 ML UDCUP PO SCH ×2 (17:57→21:00)
[2019-09-19] MEDS: LACTULOSE 20 GM/30 ML UDCUP PO SCH (18:35)
[2019-09-19] MEDS: SIMVASTATIN 10 MG TABLET PO SCH (21:04)
[2019-09-19] MEDS: CARBOXYMETHYLCELLULOSE 1% OPH SOLN BOTH EYES SCH (21:04)
[2019-09-19] MEDS: ACETAMINOPHEN 325 MG TABLET PO PRN (21:14)
[2019-09-20] MEDS: LEVOTHYROXINE 25 MCG TABLET PO SCH (06:29)
[2019-09-20 07:40] LABS: Basophils # 0.1 10*3/uL (0.0-0.2); Basophils % 0.7 % (0.0-0.8); Eosinophils # 0.5 10*3/uL (0.0-0.87); Eosinophils % 6.6 % (0.00-10.9); Hematocrit 28.5 VOL% (35.7-47.0); Immature Granulocytes % 0.3 %; Immature Granulocytes Absolute 0.02 #; Lymphocytes # 1.1 10*3/uL (1.4-4.0); Lymphocytes % 14.6 % (21.3-54.2); Mean Corpuscular HGB Conc 31.6 GM/DL (32-36); Mean Corpuscular Volume 96.3 FL (87-102); Mean Platelet Volume 12.2 FL (9.6-12.0); Monocytes % 7.6 % (1.7-12.7); Neutrophils % 70.2 % (38.7-73.9); Platelet Count 182 T/CUMM (130-400); Red Blood Count 2.96 MC/CUMM (3.8-5.5); Red Cell Distribution Width 12.2 % (9.3-17.3); White Blood Count 7.3 T/CUMM (4-12)
[2019-09-20 08:38] LABS: Calcium 9.5 MG/DL (8.5-10.1)
[2019-09-20 08:39] LABS: Albumin 2.8 G/DL (3.4-5.0); Bilirubin,Total 0.4 MG/DL (0.2-1.0); Osmolality,Calculated 288.3 MOS/KG (273-304); Total Protein 6.6 G/DL (6.4-8.3)
[2019-09-20] MEDS: MAGNESIUM CHLORIDE 64 MG TABLET PO SCH ×2 (09:28→21:16)
[2019-09-20] MEDS: OMEGA 3 ACID ETHYL ESTERS 1 GM CAPSULE PO SCH (09:28)
[2019-09-20] MEDS: DOXAZOSIN 1 MG TABLET PO SCH (09:28)
[2019-09-20] MEDS: LACTULOSE 20 GM/30 ML UDCUP PO SCH ×2 (09:28→21:16)
[2019-09-20] MEDS: ISOSORBIDE MONONITRATE 60 MG TABLET PO SCH (09:28)
[2019-09-20] MEDS: carvediloL 6.25 MG TABLET PO SCH ×2 (09:28→16:54)
[2019-09-20] MEDS: CLOPIDOGREL 75 MG TABLET PO SCH (09:28)
[2019-09-20] MEDS: MULTIVITAMIN (CENTRUM) TABLET PO SCH (09:28)
[2019-09-20] MEDS: DOCUSATE SODIUM 100 MG CAPSULE PO SCH ×2 (09:29→21:16)
[2019-09-20] MEDS: PANTOPRAZOLE 40 MG TABLET PO SCH (09:29)
[2019-09-20] MEDS: ZINC OXIDE PASTE 113 GM TUBE TOP SCH ×2 (09:29→21:15)
[2019-09-20] MEDS: ASPIRIN EC 81 MG TABLET PO SCH (09:29)
[2019-09-20] MEDS: INSULIN GLARGINE 100 UNIT/ML SUBCUT SCH (09:29)
[2019-09-20] MEDS: FERROUS SULFATE 325 MG TABLET PO SCH ×2 (09:29→21:16)
[2019-09-20] MEDS: LEVOFLOXACIN INJ 250 MG in PREMIX 1 EACH IV SCH (16:01)
[2019-09-20] MEDS: cefTRIAXone 500 MG in SYRINGE 1 EACH IV SCH (16:54)
[2019-09-20] MEDS: SIMVASTATIN 10 MG TABLET PO SCH (21:16)
[2019-09-20] MEDS: CARBOXYMETHYLCELLULOSE 1% OPH SOLN BOTH EYES SCH (21:24)
[2019-09-21] MEDS: LEVOTHYROXINE 25 MCG TABLET PO SCH (06:06)
[2019-09-21 06:54] LABS: Basophils % 0.6 % (0.0-0.8); Eosinophils # 0.5 10*3/uL (0.0-0.87); Eosinophils % 6.5 % (0.00-10.9); Hematocrit 26.8 VOL% (35.7-47.0); Hemoglobin 8.5 GM/DL (12.0-16.0); Immature Granulocytes % 0.3 %; Immature Granulocytes Absolute 0.02 #; Lymphocytes # 1.4 10*3/uL (1.4-4.0); Lymphocytes % 19.7 % (21.3-54.2); Mean Corpuscular HGB Conc 31.7 GM/DL (32-36); Mean Corpuscular Volume 96.8 FL (87-102); Monocytes % 8.4 % (1.7-12.7); Neutrophils % 64.5 % (38.7-73.9); Platelet Count 169 T/CUMM (130-400); Red Blood Count 2.77 MC/CUMM (3.8-5.5); Red Cell Distribution Width 12.4 % (9.3-17.3); White Blood Count 6.9 T/CUMM (4-12)
[2019-09-21 07:21] LABS: Albumin 2.6 G/DL (3.4-5.0); Bilirubin,Total 0.6 MG/DL (0.2-1.0); Calcium 9.4 MG/DL (8.5-10.1); Osmolality,Calculated 281.7 MOS/KG (273-304); Total Protein 6.3 G/DL (6.4-8.3)
[2019-09-21] MEDS: ISOSORBIDE MONONITRATE 60 MG TABLET PO SCH (09:16)
[2019-09-21] MEDS: MAGNESIUM CHLORIDE 64 MG TABLET PO SCH ×2 (09:16→21:34)
[2019-09-21] MEDS: DOCUSATE SODIUM 100 MG CAPSULE PO SCH ×2 (09:17→21:33)
[2019-09-21] MEDS: CLOPIDOGREL 75 MG TABLET PO SCH (09:17)
[2019-09-21] MEDS: FERROUS SULFATE 325 MG TABLET PO SCH ×2 (09:17→21:34)
[2019-09-21] MEDS: OMEGA 3 ACID ETHYL ESTERS 1 GM CAPSULE PO SCH (09:17)
[2019-09-21] MEDS: MULTIVITAMIN (CENTRUM) TABLET PO SCH (09:17)
[2019-09-21] MEDS: ASPIRIN EC 81 MG TABLET PO SCH (09:17)
[2019-09-21] MEDS: PANTOPRAZOLE 40 MG TABLET PO SCH (09:18)
[2019-09-21] MEDS: carvediloL 6.25 MG TABLET PO SCH ×2 (09:18→18:48)
[2019-09-21] MEDS: LACTULOSE 20 GM/30 ML UDCUP PO SCH ×2 (09:18→21:33)
[2019-09-21] MEDS: DOXAZOSIN 1 MG TABLET PO SCH (09:22)
[2019-09-21] MEDS: ZINC OXIDE PASTE 113 GM TUBE TOP SCH ×2 (09:23→21:33)
[2019-09-21] MEDS: INSULIN GLARGINE 100 UNIT/ML SUBCUT SCH (09:23)
[2019-09-21] MEDS: cefTRIAXone 500 MG in SYRINGE 1 EACH IV SCH (18:19)
[2019-09-21] MEDS: SIMVASTATIN 10 MG TABLET PO SCH (21:34)
[2019-09-21] MEDS: ACETAMINOPHEN 325 MG TABLET PO PRN (21:35)
[2019-09-22] MEDS: CARBOXYMETHYLCELLULOSE 1% OPH SOLN BOTH EYES SCH ×2 (01:44→21:10)
[2019-09-22] MEDS: LEVOTHYROXINE 25 MCG TABLET PO SCH (06:08)
[2019-09-22 08:34] LABS: Basophils % 0.6 % (0.0-0.8); Eosinophils # 0.5 10*3/uL (0.0-0.87); Eosinophils % 7.6 % (0.00-10.9); Hematocrit 26.9 VOL% (35.7-47.0); Hemoglobin 8.6 GM/DL (12.0-16.0); Immature Granulocytes % 0.2 %; Immature Granulocytes Absolute 0.01 #; Mean Corpuscular Volume 96.1 FL (87-102); Mean Platelet Volume 12.5 FL (9.6-12.0); Neutrophils % 65.6 % (38.7-73.9); Platelet Count 170 T/CUMM (130-400); Red Cell Distribution Width 12.2 % (9.3-17.3); White Blood Count 6.2 T/CUMM (4-12)
[2019-09-22 08:44] LABS: Calcium 9.4 MG/DL (8.5-10.1); Osmolality,Calculated 282.7 MOS/KG (273-304)
[2019-09-22] MEDS: carvediloL 6.25 MG TABLET PO SCH ×2 (10:00→16:49)
[2019-09-22] MEDS: MAGNESIUM CHLORIDE 64 MG TABLET PO SCH ×2 (10:00→21:10)
[2019-09-22] MEDS: DOXAZOSIN 1 MG TABLET PO SCH (10:00)
[2019-09-22] MEDS: CLOPIDOGREL 75 MG TABLET PO SCH (10:00)
[2019-09-22] MEDS: ASPIRIN EC 81 MG TABLET PO SCH (10:01)
[2019-09-22] MEDS: PANTOPRAZOLE 40 MG TABLET PO SCH (10:01)
[2019-09-22] MEDS: ISOSORBIDE MONONITRATE 60 MG TABLET PO SCH (10:01)
[2019-09-22] MEDS: INSULIN GLARGINE 100 UNIT/ML SUBCUT SCH (10:01)
[2019-09-22] MEDS: OMEGA 3 ACID ETHYL ESTERS 1 GM CAPSULE PO SCH (10:01)
[2019-09-22] MEDS: DOCUSATE SODIUM 100 MG CAPSULE PO SCH ×2 (10:01→21:10)
[2019-09-22] MEDS: MULTIVITAMIN (CENTRUM) TABLET PO SCH (10:01)
[2019-09-22] MEDS: ZINC OXIDE PASTE 113 GM TUBE TOP SCH ×2 (10:02→21:10)
[2019-09-22] MEDS: FERROUS SULFATE 325 MG TABLET PO SCH ×2 (10:02→21:10)
[2019-09-22] MEDS: LACTULOSE 20 GM/30 ML UDCUP PO SCH ×2 (10:02→21:10)
[2019-09-22] MEDS: ACETAMINOPHEN 325 MG TABLET PO PRN (10:21)
[2019-09-22] MEDS: POTASSIUM CHLORIDE 20 MEQ TABLET PO PRN ×2 (14:54→16:49)
[2019-09-22] MEDS: cefTRIAXone 500 MG in SYRINGE 1 EACH IV SCH (18:16)
[2019-09-22] MEDS: SIMVASTATIN 10 MG TABLET PO SCH (21:10)
[2019-09-23] MEDS: LEVOTHYROXINE 25 MCG TABLET PO SCH (06:39)
[2019-09-23 07:07] LABS: Basophils # 0.1 10*3/uL (0.0-0.2); Basophils % 0.8 % (0.0-0.8); Eosinophils # 0.5 10*3/uL (0.0-0.87); Eosinophils % 7.4 % (0.00-10.9); Hematocrit 26.7 VOL% (35.7-47.0); Hemoglobin 8.6 GM/DL (12.0-16.0); Immature Granulocytes % 0.3 %; Immature Granulocytes Absolute 0.02 #; Lymphocytes # 1.1 10*3/uL (1.4-4.0); Lymphocytes % 15.9 % (21.3-54.2); Mean Corpuscular HGB Conc 32.2 GM/DL (32-36); Mean Corpuscular Volume 94.7 FL (87-102); Mean Platelet Volume 12.8 FL (9.6-12.0); Monocytes % 9.8 % (1.7-12.7); Neutrophils % 65.8 % (38.7-73.9); Platelet Count 164 T/CUMM (130-400); Red Blood Count 2.82 MC/CUMM (3.8-5.5); Red Cell Distribution Width 12.7 % (9.3-17.3); White Blood Count 7.2 T/CUMM (4-12)
[2019-09-23 07:18] LABS: Calcium 9.6 MG/DL (8.5-10.1); Osmolality,Calculated 283.5 MOS/KG (273-304)
[2019-09-23] MEDS: DOCUSATE SODIUM 100 MG CAPSULE PO SCH ×2 (09:19→20:47)
[2019-09-23] MEDS: MULTIVITAMIN (CENTRUM) TABLET PO SCH (09:19)
[2019-09-23] MEDS: MAGNESIUM CHLORIDE 64 MG TABLET PO SCH ×2 (09:19→20:46)
[2019-09-23] MEDS: OMEGA 3 ACID ETHYL ESTERS 1 GM CAPSULE PO SCH (09:19)
[2019-09-23] MEDS: ASPIRIN EC 81 MG TABLET PO SCH (09:19)
[2019-09-23] MEDS: CLOPIDOGREL 75 MG TABLET PO SCH (09:19)
[2019-09-23] MEDS: ISOSORBIDE MONONITRATE 60 MG TABLET PO SCH (09:19)
[2019-09-23] MEDS: PANTOPRAZOLE 40 MG TABLET PO SCH (09:19)
[2019-09-23] MEDS: DOXAZOSIN 1 MG TABLET PO SCH (09:20)
[2019-09-23] MEDS: INSULIN GLARGINE 100 UNIT/ML SUBCUT SCH (09:20)
[2019-09-23] MEDS: FERROUS SULFATE 325 MG TABLET PO SCH ×2 (09:21→20:47)
[2019-09-23] MEDS: LACTULOSE 20 GM/30 ML UDCUP PO SCH ×2 (09:21→20:46)
[2019-09-23] MEDS: ZINC OXIDE PASTE 113 GM TUBE TOP SCH ×2 (09:21→20:47)
[2019-09-23] MEDS: carvediloL 6.25 MG TABLET PO SCH ×2 (09:21→16:04)
[2019-09-23] MEDS: cefTRIAXone 500 MG in SYRINGE 1 EACH IV SCH (16:04)
[2019-09-23] MEDS: ACETAMINOPHEN 325 MG TABLET PO PRN (17:23)
[2019-09-23] MEDS: SIMVASTATIN 10 MG TABLET PO SCH (20:46)
[2019-09-23] MEDS: CARBOXYMETHYLCELLULOSE 1% OPH SOLN BOTH EYES SCH (20:47)
[2019-09-24] MEDS: hydrALAZINE 20 MG/1 ML VIAL IV PRN (04:50)
[2019-09-24] MEDS: ACETAMINOPHEN 325 MG TABLET PO PRN (06:00)
[2019-09-24] MEDS: LEVOTHYROXINE 25 MCG TABLET PO SCH (06:01)
[2019-09-24] MEDS: DOXAZOSIN 1 MG TABLET PO SCH (08:41)
[2019-09-24] MEDS: MAGNESIUM CHLORIDE 64 MG TABLET PO SCH (08:41)
[2019-09-24] MEDS: OMEGA 3 ACID ETHYL ESTERS 1 GM CAPSULE PO SCH (08:41)
[2019-09-24] MEDS: ISOSORBIDE MONONITRATE 60 MG TABLET PO SCH (08:41)
[2019-09-24] MEDS: carvediloL 6.25 MG TABLET PO SCH ×3 (08:41→16:14)
[2019-09-24] MEDS: DOCUSATE SODIUM 100 MG CAPSULE PO SCH (08:41)
[2019-09-24] MEDS: MULTIVITAMIN (CENTRUM) TABLET PO SCH (08:41)
[2019-09-24] MEDS: CLOPIDOGREL 75 MG TABLET PO SCH (08:42)
[2019-09-24] MEDS: INSULIN GLARGINE 100 UNIT/ML SUBCUT SCH (08:42)
[2019-09-24] MEDS: PANTOPRAZOLE 40 MG TABLET PO SCH (08:42)
[2019-09-24] MEDS: FERROUS SULFATE 325 MG TABLET PO SCH (08:42)
[2019-09-24] MEDS: ASPIRIN EC 81 MG TABLET PO SCH (08:42)
[2019-09-24] MEDS: LACTULOSE 20 GM/30 ML UDCUP PO SCH (08:43)
[2019-09-24] MEDS: ZINC OXIDE PASTE 113 GM TUBE TOP SCH (08:43)
[2019-09-24] MEDS: cefTRIAXone 500 MG in SYRINGE 1 EACH IV SCH ×2 (15:46→16:14)
[2019-09-24 16:21] VITALS: BP 171/66
== END 2019-09-24 17:00 | disposition swing bed (61) ==
LOC: EDBD → EDUNIT# → N.ED 11:00 → INTOOBSV 13:12 → N.EDINP 13:12 → N.TELEN 14:01
PROVIDERS: ADMIT Internal Medicine; ATTEND Internal Medicine

== ENCOUNTER 2019-10-30 11:35 | Inpatient (IN) ==
[2019-10-30 12:10] LABS: Basophils % 0.4 % (0.0-0.8); Eosinophils # 0.2 10*3/uL (0.0-0.87); Eosinophils % 2.2 % (0.00-10.9); Hemoglobin 9.2 GM/DL (12.0-16.0); Immature Granulocytes % 0.5 %; Immature Granulocytes Absolute 0.04 #; Lymphocytes # 1.5 10*3/uL (1.4-4.0); Lymphocytes % 17.9 % (21.3-54.2); Mean Corpuscular HGB Conc 31.7 GM/DL (32-36); Mean Corpuscular Volume 96.3 FL (87-102); Mean Platelet Volume 12.1 FL (9.6-12.0); Monocytes % 5.7 % (1.7-12.7); Neutrophils % 73.3 % (38.7-73.9); Platelet Count 223 T/CUMM (130-400); Red Blood Count 3.01 MC/CUMM (3.8-5.5); Red Cell Distribution Width 12.6 % (9.3-17.3); White Blood Count 8.2 T/CUMM (4-12)
[2019-10-30 12:15] LABS: PT Patient Result 10.6 SECS (9.8-11.9)
[2019-10-30 12:22] LABS: Bilirubin,Total 0.5 MG/DL (0.2-1.0); Calcium 9.7 MG/DL (8.5-10.1); Osmolality,Calculated 289.7 MOS/KG (273-304); Total Protein 6.6 G/DL (6.4-8.3)
[2019-10-30 12:50] LABS: Apearance,Urine CLEAR (Clear); Bacteria,Urine Occasional /HPF (Few); Bilirubin,Urine Negative (Negative); Blood, Urine Negative (Negative); Glucose,Urine (UA) Negative (Negative); Hyaline Casts,Urine 12 /LPF (0-3); Ketones,Urine Negative (Negative); Mucus,Urine Occasional /LPF (Occasional); Nitrite,Urine Negative (Negative); Protein,Urine Negative; RBC,Urine 1 /HPF (0-4); Squamous Epithelial Cell,Urine Occasional /HPF (0-10); Urine Color Yellow (Yellow); Urine Specific Gravity 1.015 (1.001-1.035); Urine Urobilinogen < 2.0 EU/DL (0.2-1.0); WBC,Urine 3 /HPF (0-6)
[2019-10-30] MEDS ORDERED: DEXTROSE 10% 250 ML BAG IV PRN ×2 (13:32→17:27)
[2019-10-30] MEDS ORDERED: GLUCAGON 1 MG VIAL IM PRN ×2 (13:32→17:27)
[2019-10-30] MEDS ORDERED: ONDANSETRON 4 MG/2 ML VIAL IV PRN (13:32)
[2019-10-30] MEDS: ACETAMINOPHEN 325 MG TABLET PO PRN (14:49)
[2019-10-30] MEDS ORDERED: ONDANSETRON 4 MG TABLET PO PRN (17:24)
[2019-10-30] MEDS ORDERED: BISACODYL 10 MG SUPP RECTAL PRN (17:24)
[2019-10-30] MEDS ORDERED: MAGNESIUM HYDROXIDE SUSP 30 ML UDCUP PO PRN (17:24)
[2019-10-30] MEDS ORDERED: BISACODYL 5 MG TABLET PO PRN (17:24)
[2019-10-30] MEDS: traMADol 50 MG TABLET PO PRN (18:05)
[2019-10-30] MEDS: carvediloL 6.25 MG TABLET PO SCH (18:05)
[2019-10-30] MEDS: cefTRIAXone 500 MG in SYRINGE 1 EACH IV SCH (18:06)
[2019-10-30] MEDS: methylPREDNISolone SOD SUC 40 MG/1 ML VIAL IV SCH (18:12)
[2019-10-30] MEDS: INSULIN REGULAR 100 UNIT/ML SUBCUT SCH (18:16)
[2019-10-30] MEDS ORDERED: DOCUSATE SODIUM 100 MG CAPSULE PO SCH (21:00)
[2019-10-30] MEDS: FERROUS SULFATE 325 MG TABLET PO SCH (22:53)
[2019-10-30] MEDS: LACTULOSE 20 GM/30 ML UDCUP PO SCH (22:53)
[2019-10-30] MEDS: DOCUSATE SODIUM 100 MG CAPSULE PO SCH (22:53)
[2019-10-30] MEDS: MAGNESIUM CHLORIDE 64 MG TABLET PO SCH (22:54)
[2019-10-30] MEDS: SIMVASTATIN 10 MG TABLET PO SCH (22:54)
[2019-10-30] MEDS: CARBOXYMETHYLCELLULOSE 1% OPH SOLN BOTH EYES SCH (22:54)
[2019-10-31] MEDS: LEVOTHYROXINE 25 MCG TABLET PO SCH (06:38)
[2019-10-31] MEDS: methylPREDNISolone SOD SUC 40 MG/1 ML VIAL IV SCH ×2 (06:41→17:21)
[2019-10-31] MEDS: PANTOPRAZOLE 40 MG TABLET PO SCH (09:48)
[2019-10-31] MEDS: MAGNESIUM CHLORIDE 64 MG TABLET PO SCH ×2 (09:48→21:12)
[2019-10-31] MEDS: ISOSORBIDE MONONITRATE 60 MG TABLET PO SCH (09:48)
[2019-10-31] MEDS: FERROUS SULFATE 325 MG TABLET PO SCH ×3 (09:49→21:13)
[2019-10-31] MEDS: DOCUSATE SODIUM 100 MG CAPSULE PO SCH ×2 (09:49→21:12)
[2019-10-31] MEDS: carvediloL 6.25 MG TABLET PO SCH ×2 (09:49→17:21)
[2019-10-31] MEDS: DOXAZOSIN 4 MG TABLET PO SCH (09:49)
[2019-10-31] MEDS: LACTULOSE 20 GM/30 ML UDCUP PO SCH ×3 (09:50→21:13)
[2019-10-31] MEDS: traMADol 50 MG TABLET PO PRN (09:50)
[2019-10-31] MEDS: CLOPIDOGREL 75 MG TABLET PO SCH (09:50)
[2019-10-31] MEDS: ASPIRIN EC 81 MG TABLET PO SCH (09:50)
[2019-10-31] MEDS: INSULIN REGULAR 100 UNIT/ML SUBCUT SCH ×2 (09:51→17:26)
[2019-10-31] MEDS: INSULIN GLARGINE 100 UNIT/ML SUBCUT SCH (09:52)
[2019-10-31] MEDS: ACETAMINOPHEN 325 MG TABLET PO PRN (12:30)
[2019-10-31] MEDS: VANCOMYCIN INJ 1,250 MG in SODIUM CHLORIDE 0.9% 250 ML IV SCH (17:16)
[2019-10-31] MEDS: cefTRIAXone 500 MG in SYRINGE 1 EACH IV SCH (17:21)
[2019-10-31] MEDS: SIMVASTATIN 10 MG TABLET PO SCH (21:12)
[2019-10-31] MEDS: CARBOXYMETHYLCELLULOSE 1% OPH SOLN BOTH EYES SCH (21:13)
[2019-11-01] MEDS: LEVOTHYROXINE 25 MCG TABLET PO SCH (06:13)
[2019-11-01] MEDS: methylPREDNISolone SOD SUC 40 MG/1 ML VIAL IV SCH (06:13)
[2019-11-01 06:25] LABS: Basophils % 0.1 % (0.0-0.8); Hematocrit 25.5 VOL% (35.7-47.0); Hemoglobin 8.3 GM/DL (12.0-16.0); Immature Granulocytes % 0.7 %; Immature Granulocytes Absolute 0.14 #; Lymphocytes # 1.6 10*3/uL (1.4-4.0); Lymphocytes % 7.5 % (21.3-54.2); Mean Corpuscular HGB Conc 32.5 GM/DL (32-36); Mean Corpuscular Volume 93.8 FL (87-102); Mean Platelet Volume 12.7 FL (9.6-12.0); Monocytes % 5.1 % (1.7-12.7); Neutrophils % 86.6 % (38.7-73.9); Platelet Count 198 T/CUMM (130-400); Red Blood Count 2.72 MC/CUMM (3.8-5.5); White Blood Count 21.5 T/CUMM (4-12)
[2019-11-01 06:35] LABS: Calcium 9.7 MG/DL (8.5-10.1); Osmolality,Calculated 280.2 MOS/KG (273-304)
[2019-11-01 06:50] LABS: Hypochromasia 2+; Lymphocytes 10 % (20-55); Microcytosis 1+; Platelet Estimate Adequate; Segmented Neutrophils 85 % (50-85); Total Cells Counted 100
[2019-11-01] MEDS: INSULIN REGULAR 100 UNIT/ML SUBCUT SCH ×2 (07:30→16:37)
[2019-11-01] MEDS: DOCUSATE SODIUM 100 MG CAPSULE PO SCH ×2 (08:28→21:06)
[2019-11-01] MEDS: carvediloL 6.25 MG TABLET PO SCH ×2 (08:28→16:37)
[2019-11-01] MEDS: ASPIRIN EC 81 MG TABLET PO SCH (08:28)
[2019-11-01] MEDS: LACTULOSE 20 GM/30 ML UDCUP PO SCH ×2 (08:28→22:02)
[2019-11-01] MEDS: ISOSORBIDE MONONITRATE 60 MG TABLET PO SCH (08:29)
[2019-11-01] MEDS: PANTOPRAZOLE 40 MG TABLET PO SCH (08:29)
[2019-11-01] MEDS: CLOPIDOGREL 75 MG TABLET PO SCH (08:29)
[2019-11-01] MEDS: FERROUS SULFATE 325 MG TABLET PO SCH ×2 (08:29→22:02)
[2019-11-01] MEDS: DOXAZOSIN 4 MG TABLET PO SCH (08:29)
[2019-11-01] MEDS: MAGNESIUM CHLORIDE 64 MG TABLET PO SCH ×2 (08:29→21:06)
[2019-11-01] MEDS: INSULIN GLARGINE 100 UNIT/ML SUBCUT SCH (08:29)
[2019-11-01] MEDS: ACETAMINOPHEN 325 MG TABLET PO PRN (08:52)
[2019-11-01] MEDS: VANCOMYCIN INJ 1,250 MG in SODIUM CHLORIDE 0.9% 250 ML IV SCH (16:37)
[2019-11-01] MEDS: ALUMINUM/MAGNES/SIMETH MAX STR 30 ML UDCUP PO PRN (16:43)
[2019-11-01] MEDS: cefTRIAXone 500 MG in SYRINGE 1 EACH IV SCH (17:04)
[2019-11-01] MEDS: traMADol 50 MG TABLET PO PRN (21:06)
[2019-11-01] MEDS: SIMVASTATIN 10 MG TABLET PO SCH (21:06)
[2019-11-01] MEDS: CARBOXYMETHYLCELLULOSE 1% OPH SOLN BOTH EYES SCH (22:02)
[2019-11-02] MEDS: LEVOTHYROXINE 25 MCG TABLET PO SCH (06:02)
[2019-11-02 06:12] LABS: Basophils # 0.1 10*3/uL (0.0-0.2); Basophils % 0.3 % (0.0-0.8); Eosinophils # 0.1 10*3/uL (0.0-0.87); Eosinophils % 0.4 % (0.00-10.9); Hematocrit 24.6 VOL% (35.7-47.0); Hemoglobin 7.9 GM/DL (12.0-16.0); Immature Granulocytes % 0.7 %; Immature Granulocytes Absolute 0.15 #; Lymphocytes # 1.8 10*3/uL (1.4-4.0); Lymphocytes % 8.6 % (21.3-54.2); Mean Corpuscular HGB Conc 32.1 GM/DL (32-36); Mean Corpuscular Volume 96.5 FL (87-102); Mean Platelet Volume 12.3 FL (9.6-12.0); Monocytes % 6.5 % (1.7-12.7); Neutrophils % 83.5 % (38.7-73.9); Platelet Count 195 T/CUMM (130-400); Red Blood Count 2.55 MC/CUMM (3.8-5.5); Red Cell Distribution Width 13.1 % (9.3-17.3); White Blood Count 20.9 T/CUMM (4-12)
[2019-11-02 06:31] LABS: Calcium 9.5 MG/DL (8.5-10.1); Osmolality,Calculated 290.7 MOS/KG (273-304)
[2019-11-02] MEDS: INSULIN REGULAR 100 UNIT/ML SUBCUT SCH ×2 (08:49→16:23)
[2019-11-02] MEDS: FERROUS SULFATE 325 MG TABLET PO SCH ×2 (08:50→21:49)
[2019-11-02] MEDS: INSULIN GLARGINE 100 UNIT/ML SUBCUT SCH (08:51)
[2019-11-02] MEDS: LACTULOSE 20 GM/30 ML UDCUP PO SCH ×2 (08:52→21:48)
[2019-11-02] MEDS: ISOSORBIDE MONONITRATE 60 MG TABLET PO SCH (08:53)
[2019-11-02] MEDS: DOCUSATE SODIUM 100 MG CAPSULE PO SCH ×2 (08:53→20:59)
[2019-11-02] MEDS: DOXAZOSIN 4 MG TABLET PO SCH (08:53)
[2019-11-02] MEDS: CLOPIDOGREL 75 MG TABLET PO SCH (08:53)
[2019-11-02] MEDS: MAGNESIUM CHLORIDE 64 MG TABLET PO SCH ×2 (08:53→20:58)
[2019-11-02] MEDS: ASPIRIN EC 81 MG TABLET PO SCH (08:54)
[2019-11-02] MEDS: carvediloL 6.25 MG TABLET PO SCH ×2 (08:54→16:01)
[2019-11-02] MEDS: PANTOPRAZOLE 40 MG TABLET PO SCH (08:54)
[2019-11-02] MEDS ORDERED: LINACLOTIDE 145 MCG CAPSULE PO ONE (11:30)
[2019-11-02 13:17] LABS: Eosinophils 1 % (0-10); Lymphocytes 5 % (20-55); Platelet Estimate Normal; Polychromasia Slight; Segmented Neutrophils 88 % (50-85); Total Cells Counted 100
[2019-11-02] MEDS: VANCOMYCIN INJ 1,250 MG in SODIUM CHLORIDE 0.9% 250 ML IV SCH (16:01)
[2019-11-02] MEDS: cefTRIAXone 500 MG in SYRINGE 1 EACH IV SCH (17:09)
[2019-11-02] MEDS: traMADol 50 MG TABLET PO PRN ×2 (17:44→20:59)
[2019-11-02] MEDS: SIMVASTATIN 10 MG TABLET PO SCH (20:59)
[2019-11-02] MEDS: CARBOXYMETHYLCELLULOSE 1% OPH SOLN BOTH EYES SCH (21:49)
[2019-11-03 03:43] LABS: Basophils # 0.1 10*3/uL (0.0-0.2); Basophils % 0.3 % (0.0-0.8); Eosinophils # 0.3 10*3/uL (0.0-0.87); Eosinophils % 1.5 % (0.00-10.9); Hemoglobin 7.5 GM/DL (12.0-16.0); Immature Granulocytes % 0.5 %; Immature Granulocytes Absolute 0.08 #; Lymphocytes # 1.6 10*3/uL (1.4-4.0); Lymphocytes % 9.5 % (21.3-54.2); Mean Corpuscular HGB Conc 31.3 GM/DL (32-36); Mean Platelet Volume 12.8 FL (9.6-12.0); Monocytes % 7.3 % (1.7-12.7); Neutrophils % 80.9 % (38.7-73.9); Platelet Count 191 T/CUMM (130-400); Red Blood Count 2.45 MC/CUMM (3.8-5.5); White Blood Count 16.8 T/CUMM (4-12)
[2019-11-03 04:14] LABS: Calcium 9.2 MG/DL (8.5-10.1); Osmolality,Calculated 297.4 MOS/KG (273-304)
[2019-11-03] MEDS: LEVOTHYROXINE 25 MCG TABLET PO SCH (06:47)
[2019-11-03] MEDS: INSULIN REGULAR 100 UNIT/ML SUBCUT SCH ×2 (08:26→16:09)
[2019-11-03] MEDS: ASPIRIN EC 81 MG TABLET PO SCH (09:12)
[2019-11-03] MEDS: DOCUSATE SODIUM 100 MG CAPSULE PO SCH ×2 (09:12→20:23)
[2019-11-03] MEDS: LACTULOSE 20 GM/30 ML UDCUP PO SCH ×2 (09:12→20:23)
[2019-11-03] MEDS: MAGNESIUM CHLORIDE 64 MG TABLET PO SCH ×2 (09:13→20:23)
[2019-11-03] MEDS: CLOPIDOGREL 75 MG TABLET PO SCH (09:13)
[2019-11-03] MEDS: PANTOPRAZOLE 40 MG TABLET PO SCH (09:13)
[2019-11-03] MEDS: DOXAZOSIN 4 MG TABLET PO SCH (09:13)
[2019-11-03] MEDS: ISOSORBIDE MONONITRATE 60 MG TABLET PO SCH (09:13)
[2019-11-03] MEDS: carvediloL 6.25 MG TABLET PO SCH ×2 (09:14→16:08)
[2019-11-03] MEDS: INSULIN GLARGINE 100 UNIT/ML SUBCUT SCH (09:14)
[2019-11-03] MEDS: FERROUS SULFATE 325 MG TABLET PO SCH ×2 (09:15→20:23)
[2019-11-03] MEDS ORDERED: SODIUM CHLORIDE 0.9% 1,000 ML IV PRN (10:48)
[2019-11-03] MEDS: traMADol 50 MG TABLET PO PRN ×3 (11:38→20:23)
[2019-11-03] MEDS: cefTRIAXone 500 MG in SYRINGE 1 EACH IV SCH (17:43)
[2019-11-03 19:43] LABS: Hematocrit 28.7 VOL% (35.7-47.0)
[2019-11-03 19:59] LABS: Hemoglobin 9.1 GM/DL (12.0-16.0)
[2019-11-03] MEDS: VANCOMYCIN INJ 1,250 MG in SODIUM CHLORIDE 0.9% 250 ML IV SCH (20:21)
[2019-11-03] MEDS: SIMVASTATIN 10 MG TABLET PO SCH (20:23)
[2019-11-03] MEDS: CARBOXYMETHYLCELLULOSE 1% OPH SOLN BOTH EYES SCH (20:23)
[2019-11-04] MEDS: LEVOTHYROXINE 25 MCG TABLET PO SCH (05:43)
[2019-11-04 06:29] LABS: Basophils # 0.1 10*3/uL (0.0-0.2); Basophils % 0.4 % (0.0-0.8); Eosinophils # 0.4 10*3/uL (0.0-0.87); Eosinophils % 3.1 % (0.00-10.9); Hematocrit 29.7 VOL% (35.7-47.0); Hemoglobin 9.8 GM/DL (12.0-16.0); Immature Granulocytes % 0.6 %; Immature Granulocytes Absolute 0.08 #; Lymphocytes # 1.4 10*3/uL (1.4-4.0); Lymphocytes % 9.7 % (21.3-54.2); Mean Corpuscular Volume 92.8 FL (87-102); Mean Platelet Volume 12.8 FL (9.6-12.0); Monocytes % 7.5 % (1.7-12.7); Neutrophils % 78.7 % (38.7-73.9); Platelet Count 206 T/CUMM (130-400); Red Cell Distribution Width 13.8 % (9.3-17.3)
[2019-11-04] MEDS: INSULIN REGULAR 100 UNIT/ML SUBCUT SCH ×2 (08:43→17:25)
[2019-11-04] MEDS: MAGNESIUM CHLORIDE 64 MG TABLET PO SCH ×2 (08:44→20:54)
[2019-11-04] MEDS: traMADol 50 MG TABLET PO PRN (08:44)
[2019-11-04] MEDS: ASPIRIN EC 81 MG TABLET PO SCH (08:44)
[2019-11-04] MEDS: DOCUSATE SODIUM 100 MG CAPSULE PO SCH ×2 (08:44→20:53)
[2019-11-04] MEDS: PANTOPRAZOLE 40 MG TABLET PO SCH (08:44)
[2019-11-04] MEDS: carvediloL 6.25 MG TABLET PO SCH ×2 (08:44→17:24)
[2019-11-04] MEDS: DOXAZOSIN 4 MG TABLET PO SCH (08:45)
[2019-11-04] MEDS: CLOPIDOGREL 75 MG TABLET PO SCH (08:45)
[2019-11-04] MEDS: ISOSORBIDE MONONITRATE 60 MG TABLET PO SCH (08:45)
[2019-11-04] MEDS: INSULIN GLARGINE 100 UNIT/ML SUBCUT SCH (08:46)
[2019-11-04] MEDS: FERROUS SULFATE 325 MG TABLET PO SCH ×2 (08:46→20:53)
[2019-11-04] MEDS: LACTULOSE 20 GM/30 ML UDCUP PO SCH ×2 (08:46→20:53)
[2019-11-04] MEDS ORDERED: SKIN HEALING OINT (AQUAPHOR) 50 GM TUBE TOP PRN (10:49)
[2019-11-04] MEDS ORDERED: ZINC OXIDE PASTE 113 GM TUBE TOP PRN (10:49)
[2019-11-04] MEDS: ALUMINUM/MAGNES/SIMETH MAX STR 30 ML UDCUP PO PRN (16:05)
[2019-11-04] MEDS: cefTRIAXone 500 MG in SYRINGE 1 EACH IV SCH (17:24)
[2019-11-04] MEDS: VANCOMYCIN INJ 1,250 MG in SODIUM CHLORIDE 0.9% 250 ML IV SCH (20:53)
[2019-11-04] MEDS: CARBOXYMETHYLCELLULOSE 1% OPH SOLN BOTH EYES SCH (20:54)
[2019-11-04] MEDS: SIMVASTATIN 10 MG TABLET PO SCH (20:54)
[2019-11-05 05:51] LABS: % Iron Saturation 18.5 % (18-50); Ferritin 502.7 ng/ml (8-252)
[2019-11-05] MEDS: LEVOTHYROXINE 25 MCG TABLET PO SCH (06:07)
[2019-11-05] MEDS: ACETAMINOPHEN 325 MG TABLET PO PRN ×2 (08:57→22:01)
[2019-11-05] MEDS: DOCUSATE SODIUM 100 MG CAPSULE PO SCH ×2 (08:57→21:56)
[2019-11-05] MEDS: ASPIRIN EC 81 MG TABLET PO SCH (08:57)
[2019-11-05] MEDS: DOXAZOSIN 4 MG TABLET PO SCH (08:57)
[2019-11-05] MEDS: CLOPIDOGREL 75 MG TABLET PO SCH (08:57)
[2019-11-05] MEDS: carvediloL 6.25 MG TABLET PO SCH ×2 (08:58→16:30)
[2019-11-05] MEDS: LACTULOSE 20 GM/30 ML UDCUP PO SCH (08:58)
[2019-11-05] MEDS: ISOSORBIDE MONONITRATE 60 MG TABLET PO SCH (08:58)
[2019-11-05] MEDS: PANTOPRAZOLE 40 MG TABLET PO SCH (08:58)
[2019-11-05] MEDS: INSULIN GLARGINE 100 UNIT/ML SUBCUT SCH (08:59)
[2019-11-05] MEDS: INSULIN REGULAR 100 UNIT/ML SUBCUT SCH ×2 (08:59→16:30)
[2019-11-05] MEDS: FERROUS SULFATE 325 MG TABLET PO SCH ×2 (08:59→21:56)
[2019-11-05] MEDS: MAGNESIUM CHLORIDE 64 MG TABLET PO SCH ×2 (09:04→21:57)
[2019-11-05 09:42] LABS: Hematocrit 30.5 VOL% (35.7-47.0); Hemoglobin 9.8 GM/DL (12.0-16.0)
[2019-11-05] MEDS ORDERED: SODIUM PHOSPHATE ENEMA 133 ML BOTTLE RECTAL ONE (13:17)
[2019-11-05] MEDS: cefTRIAXone 500 MG in SYRINGE 1 EACH IV SCH (17:35)
[2019-11-05] MEDS: ALUMINUM/MAGNES/SIMETH MAX STR 30 ML UDCUP PO PRN (17:35)
[2019-11-05] MEDS: VANCOMYCIN INJ 1,250 MG in SODIUM CHLORIDE 0.9% 250 ML IV SCH (21:55)
[2019-11-05] MEDS: CARBOXYMETHYLCELLULOSE 1% OPH SOLN BOTH EYES SCH (21:57)
[2019-11-05] MEDS: SIMVASTATIN 10 MG TABLET PO SCH (21:57)
[2019-11-06 05:23] LABS: Calcium 9.3 MG/DL (8.5-10.1); Osmolality,Calculated 281.7 MOS/KG (273-304)
[2019-11-06] MEDS: LEVOTHYROXINE 25 MCG TABLET PO SCH (05:50)
[2019-11-06] MEDS: carvediloL 6.25 MG TABLET PO SCH ×2 (08:31→16:42)
[2019-11-06] MEDS: LINACLOTIDE 145 MCG CAPSULE PO SCH (08:31)
[2019-11-06] MEDS: CLOPIDOGREL 75 MG TABLET PO SCH (08:32)
[2019-11-06] MEDS: PANTOPRAZOLE 40 MG TABLET PO SCH (08:32)
[2019-11-06] MEDS: ASPIRIN EC 81 MG TABLET PO SCH (08:32)
[2019-11-06] MEDS: FERROUS SULFATE 325 MG TABLET PO SCH ×2 (08:32→21:02)
[2019-11-06] MEDS: DOXAZOSIN 4 MG TABLET PO SCH (08:32)
[2019-11-06] MEDS: ISOSORBIDE MONONITRATE 60 MG TABLET PO SCH (08:32)
[2019-11-06] MEDS: DOCUSATE SODIUM 100 MG CAPSULE PO SCH ×2 (08:32→21:02)
[2019-11-06] MEDS: MAGNESIUM CHLORIDE 64 MG TABLET PO SCH ×2 (08:32→21:02)
[2019-11-06] MEDS: INSULIN GLARGINE 100 UNIT/ML SUBCUT SCH (08:52)
[2019-11-06] MEDS: INSULIN REGULAR 100 UNIT/ML SUBCUT SCH ×2 (08:52→16:33)
[2019-11-06] MEDS ORDERED: propofoL 200 MG/20 ML VIAL IV ONE ×2 (09:00)
[2019-11-06] MEDS ORDERED: LIDOCAINE 2% 5 ML VIAL ONE ×2 (09:00)
[2019-11-06] MEDS ORDERED: hydrALAZINE 20 MG/1 ML VIAL ONE (09:00)
[2019-11-06] MEDS: LACTATED RINGERS 1,000 ML IV SCH (12:08)
[2019-11-06] MEDS ORDERED: DEXTROSE 50% 25 GM/50 ML VIAL IV PRN (14:31)
[2019-11-06] MEDS ORDERED: GLUCAGON 1 MG VIAL IM PRN (14:31)
[2019-11-06] MEDS: methylPREDNISolone SOD SUC 40 MG/1 ML VIAL IV SCH (18:32)
[2019-11-06] MEDS: SIMVASTATIN 10 MG TABLET PO SCH (21:02)
[2019-11-06] MEDS: traMADol 50 MG TABLET PO SCH (21:02)
[2019-11-06] MEDS: CARBOXYMETHYLCELLULOSE 1% OPH SOLN BOTH EYES SCH (21:03)
[2019-11-07 04:59] LABS: Basophils % 0.2 % (0.0-0.8); Eosinophils % 0.1 % (0.00-10.9); Hematocrit 30.9 VOL% (35.7-47.0); Hemoglobin 9.9 GM/DL (12.0-16.0); Immature Granulocytes % 1.5 %; Immature Granulocytes Absolute 0.13 #; Lymphocytes # 1.3 10*3/uL (1.4-4.0); Lymphocytes % 14.1 % (21.3-54.2); Mean Corpuscular Volume 93.1 FL (87-102); Mean Platelet Volume 11.8 FL (9.6-12.0); Monocytes % 8.2 % (1.7-12.7); Neutrophils % 75.9 % (38.7-73.9); Platelet Count 244 T/CUMM (130-400); Red Blood Count 3.32 MC/CUMM (3.8-5.5); Red Cell Distribution Width 12.5 % (9.3-17.3); White Blood Count 8.9 T/CUMM (4-12)
[2019-11-07 05:21] LABS: Calcium 9.4 MG/DL (8.5-10.1); Osmolality,Calculated 276.2 MOS/KG (273-304)
[2019-11-07] MEDS: methylPREDNISolone SOD SUC 40 MG/1 ML VIAL IV SCH ×2 (05:43→17:24)
[2019-11-07] MEDS: LEVOTHYROXINE 25 MCG TABLET PO SCH (05:57)
[2019-11-07] MEDS: ASPIRIN EC 81 MG TABLET PO SCH (07:59)
[2019-11-07] MEDS: INSULIN REGULAR 100 UNIT/ML SUBCUT SCH ×2 (07:59→16:16)
[2019-11-07] MEDS: LINACLOTIDE 145 MCG CAPSULE PO SCH (07:59)
[2019-11-07] MEDS: DOCUSATE SODIUM 100 MG CAPSULE PO SCH ×2 (07:59→21:28)
[2019-11-07] MEDS: carvediloL 6.25 MG TABLET PO SCH ×2 (07:59→17:24)
[2019-11-07] MEDS: DOXAZOSIN 4 MG TABLET PO SCH (07:59)
[2019-11-07] MEDS: FERROUS SULFATE 325 MG TABLET PO SCH ×2 (08:00→21:28)
[2019-11-07] MEDS: ISOSORBIDE MONONITRATE 60 MG TABLET PO SCH (08:00)
[2019-11-07] MEDS: INSULIN GLARGINE 100 UNIT/ML SUBCUT SCH (08:00)
[2019-11-07] MEDS: LIDOCAINE 5% PATCH TRANSDERM SCH (08:00)
[2019-11-07] MEDS: CLOPIDOGREL 75 MG TABLET PO SCH (08:01)
[2019-11-07] MEDS: LACTATED RINGERS 1,000 ML IV SCH (08:01)
[2019-11-07] MEDS: PANTOPRAZOLE 40 MG TABLET PO SCH (08:01)
[2019-11-07] MEDS: MAGNESIUM CHLORIDE 64 MG TABLET PO SCH ×2 (08:01→21:28)
[2019-11-07] MEDS: traMADol 50 MG TABLET PO SCH ×4 (08:01→21:28)
[2019-11-07] MEDS: SIMVASTATIN 10 MG TABLET PO SCH (21:28)
[2019-11-07] MEDS: CARBOXYMETHYLCELLULOSE 1% OPH SOLN BOTH EYES SCH (21:30)
[2019-11-08 03:58] LABS: Basophils % 0.2 % (0.0-0.8); Eosinophils % 0.2 % (0.00-10.9); Hematocrit 30.9 VOL% (35.7-47.0); Immature Granulocytes % 1.4 %; Immature Granulocytes Absolute 0.18 #; Lymphocytes % 15.8 % (21.3-54.2); Mean Corpuscular HGB Conc 32.4 GM/DL (32-36); Mean Corpuscular Volume 93.1 FL (87-102); Monocytes % 8.4 % (1.7-12.7); Platelet Count 270 T/CUMM (130-400); Red Blood Count 3.32 MC/CUMM (3.8-5.5); Red Cell Distribution Width 12.3 % (9.3-17.3); White Blood Count 12.6 T/CUMM (4-12)
[2019-11-08 04:41] LABS: Calcium 9.6 MG/DL (8.5-10.1)
[2019-11-08] MEDS: LEVOTHYROXINE 25 MCG TABLET PO SCH (05:56)
[2019-11-08] MEDS: methylPREDNISolone SOD SUC 40 MG/1 ML VIAL IV SCH ×2 (05:58→18:40)
[2019-11-08] MEDS: INSULIN REGULAR 100 UNIT/ML SUBCUT SCH ×2 (10:01→18:47)
[2019-11-08] MEDS: LINACLOTIDE 145 MCG CAPSULE PO SCH (10:02)
[2019-11-08] MEDS: LACTATED RINGERS 1,000 ML IV SCH (10:03)
[2019-11-08] MEDS: carvediloL 6.25 MG TABLET PO SCH ×2 (10:03→18:39)
[2019-11-08] MEDS: FERROUS SULFATE 325 MG TABLET PO SCH ×2 (10:04→21:27)
[2019-11-08] MEDS: DOXAZOSIN 4 MG TABLET PO SCH (10:04)
[2019-11-08] MEDS: DOCUSATE SODIUM 100 MG CAPSULE PO SCH ×2 (10:04→21:27)
[2019-11-08] MEDS: ASPIRIN EC 81 MG TABLET PO SCH (10:04)
[2019-11-08] MEDS: INSULIN GLARGINE 100 UNIT/ML SUBCUT SCH (10:04)
[2019-11-08] MEDS: ISOSORBIDE MONONITRATE 60 MG TABLET PO SCH (10:04)
[2019-11-08] MEDS: CLOPIDOGREL 75 MG TABLET PO SCH (10:05)
[2019-11-08] MEDS: traMADol 50 MG TABLET PO SCH ×3 (10:06→21:26)
[2019-11-08] MEDS: MAGNESIUM CHLORIDE 64 MG TABLET PO SCH ×2 (10:06→21:26)
[2019-11-08] MEDS: PANTOPRAZOLE 40 MG TABLET PO SCH (10:06)
[2019-11-08] MEDS: LIDOCAINE 5% PATCH TRANSDERM SCH (10:11)
[2019-11-08] MEDS: ALUMINUM/MAGNES/SIMETH MAX STR 30 ML UDCUP PO PRN (16:12)
[2019-11-08] MEDS: SIMVASTATIN 10 MG TABLET PO SCH (21:27)
[2019-11-08] MEDS: CARBOXYMETHYLCELLULOSE 1% OPH SOLN BOTH EYES SCH (21:28)
[2019-11-09] MEDS: methylPREDNISolone SOD SUC 40 MG/1 ML VIAL IV SCH ×2 (05:42→17:53)
[2019-11-09] MEDS: LEVOTHYROXINE 25 MCG TABLET PO SCH (05:43)
[2019-11-09] MEDS: DOXAZOSIN 4 MG TABLET PO SCH (10:01)
[2019-11-09] MEDS: MAGNESIUM CHLORIDE 64 MG TABLET PO SCH ×2 (10:01→20:56)
[2019-11-09] MEDS: PANTOPRAZOLE 40 MG TABLET PO SCH (10:01)
[2019-11-09] MEDS: ASPIRIN EC 81 MG TABLET PO SCH (10:02)
[2019-11-09] MEDS: CLOPIDOGREL 75 MG TABLET PO SCH (10:02)
[2019-11-09] MEDS: DOCUSATE SODIUM 100 MG CAPSULE PO SCH ×2 (10:03→20:57)
[2019-11-09] MEDS: FERROUS SULFATE 325 MG TABLET PO SCH ×2 (10:03→20:57)
[2019-11-09] MEDS: ISOSORBIDE MONONITRATE 60 MG TABLET PO SCH (10:03)
[2019-11-09] MEDS: carvediloL 6.25 MG TABLET PO SCH ×2 (10:03→17:53)
[2019-11-09] MEDS: INSULIN REGULAR 100 UNIT/ML SUBCUT SCH ×2 (10:03→17:53)
[2019-11-09] MEDS: LACTATED RINGERS 1,000 ML IV SCH (10:04)
[2019-11-09] MEDS: LINACLOTIDE 145 MCG CAPSULE PO SCH (10:04)
[2019-11-09] MEDS: LIDOCAINE 5% PATCH TRANSDERM SCH (10:33)
[2019-11-09] MEDS: traMADol 50 MG TABLET PO SCH ×3 (10:34→20:56)
[2019-11-09] MEDS: INSULIN GLARGINE 100 UNIT/ML SUBCUT SCH (10:34)
[2019-11-09] MEDS ORDERED: hydrALAZINE 20 MG/1 ML VIAL IV PRN (11:06)
[2019-11-09] MEDS: SIMVASTATIN 10 MG TABLET PO SCH (20:56)
[2019-11-09] MEDS: CARBOXYMETHYLCELLULOSE 1% OPH SOLN BOTH EYES SCH (20:57)
[2019-11-10] MEDS: methylPREDNISolone SOD SUC 40 MG/1 ML VIAL IV SCH ×2 (05:30→17:15)
[2019-11-10] MEDS: LEVOTHYROXINE 25 MCG TABLET PO SCH (05:38)
[2019-11-10 06:45] LABS: Basophils % 0.3 % (0.0-0.8); Eosinophils # 0.1 10*3/uL (0.0-0.87); Eosinophils % 0.9 % (0.00-10.9); Hematocrit 30.1 VOL% (35.7-47.0); Hemoglobin 9.6 GM/DL (12.0-16.0); Immature Granulocytes Absolute 0.14 #; Lymphocytes # 2.8 10*3/uL (1.4-4.0); Mean Corpuscular HGB Conc 31.9 GM/DL (32-36); Mean Corpuscular Volume 93.5 FL (87-102); Mean Platelet Volume 11.8 FL (9.6-12.0); Monocytes % 6.8 % (1.7-12.7); Platelet Count 258 T/CUMM (130-400); Red Blood Count 3.22 MC/CUMM (3.8-5.5); Red Cell Distribution Width 12.3 % (9.3-17.3); White Blood Count 13.5 T/CUMM (4-12)
[2019-11-10 07:15] LABS: Albumin 2.8 G/DL (3.4-5.0); Bilirubin,Total 0.5 MG/DL (0.2-1.0); Calcium 9.5 MG/DL (8.5-10.1); Osmolality,Calculated 283.8 MOS/KG (273-304); Total Protein 6.4 G/DL (6.4-8.3)
[2019-11-10] MEDS: INSULIN REGULAR 100 UNIT/ML SUBCUT SCH ×2 (07:54→17:14)
[2019-11-10] MEDS: carvediloL 6.25 MG TABLET PO SCH ×2 (09:01→17:14)
[2019-11-10] MEDS: LINACLOTIDE 145 MCG CAPSULE PO SCH (09:01)
[2019-11-10] MEDS: CLOPIDOGREL 75 MG TABLET PO SCH (09:02)
[2019-11-10] MEDS: traMADol 50 MG TABLET PO SCH ×3 (09:02→21:54)
[2019-11-10] MEDS: FERROUS SULFATE 325 MG TABLET PO SCH ×2 (09:02→21:54)
[2019-11-10] MEDS: ISOSORBIDE MONONITRATE 60 MG TABLET PO SCH (09:02)
[2019-11-10] MEDS: PANTOPRAZOLE 40 MG TABLET PO SCH (09:02)
[2019-11-10] MEDS: LIDOCAINE 5% PATCH TRANSDERM SCH (09:02)
[2019-11-10] MEDS: MAGNESIUM CHLORIDE 64 MG TABLET PO SCH ×2 (09:02→21:54)
[2019-11-10] MEDS: DOCUSATE SODIUM 100 MG CAPSULE PO SCH ×2 (09:02→21:54)
[2019-11-10] MEDS: DOXAZOSIN 4 MG TABLET PO SCH (09:02)
[2019-11-10] MEDS: ASPIRIN EC 81 MG TABLET PO SCH (09:02)
[2019-11-10] MEDS: INSULIN GLARGINE 100 UNIT/ML SUBCUT SCH (09:03)
[2019-11-10] MEDS: CARBOXYMETHYLCELLULOSE 1% OPH SOLN BOTH EYES SCH (21:54)
[2019-11-10] MEDS: SIMVASTATIN 10 MG TABLET PO SCH (21:54)
[2019-11-11] MEDS: methylPREDNISolone SOD SUC 40 MG/1 ML VIAL IV SCH ×2 (05:47→17:10)
[2019-11-11] MEDS: LEVOTHYROXINE 25 MCG TABLET PO SCH (05:52)
[2019-11-11] MEDS: INSULIN REGULAR 100 UNIT/ML SUBCUT SCH ×2 (08:37→16:31)
[2019-11-11] MEDS: LINACLOTIDE 145 MCG CAPSULE PO SCH (09:22)
[2019-11-11] MEDS: DOCUSATE SODIUM 100 MG CAPSULE PO SCH ×2 (09:23→21:37)
[2019-11-11] MEDS: DOXAZOSIN 4 MG TABLET PO SCH (09:23)
[2019-11-11] MEDS: PANTOPRAZOLE 40 MG TABLET PO SCH (09:23)
[2019-11-11] MEDS: FERROUS SULFATE 325 MG TABLET PO SCH ×2 (09:23→21:37)
[2019-11-11] MEDS: MAGNESIUM CHLORIDE 64 MG TABLET PO SCH ×2 (09:23→21:36)
[2019-11-11] MEDS: carvediloL 6.25 MG TABLET PO SCH ×2 (09:24→17:08)
[2019-11-11] MEDS: INSULIN GLARGINE 100 UNIT/ML SUBCUT SCH (09:24)
[2019-11-11] MEDS: traMADol 50 MG TABLET PO SCH ×3 (09:24→21:37)
[2019-11-11] MEDS: CLOPIDOGREL 75 MG TABLET PO SCH (09:24)
[2019-11-11] MEDS: ISOSORBIDE MONONITRATE 60 MG TABLET PO SCH (09:24)
[2019-11-11] MEDS: LIDOCAINE 5% PATCH TRANSDERM SCH (09:25)
[2019-11-11] MEDS: ASPIRIN EC 81 MG TABLET PO SCH (09:50)
[2019-11-11] MEDS ORDERED: SODIUM PHOSPHATE ENEMA 133 ML BOTTLE RECTAL ONE (17:47)
[2019-11-11] MEDS: SIMVASTATIN 10 MG TABLET PO SCH (21:37)
[2019-11-11] MEDS: CARBOXYMETHYLCELLULOSE 1% OPH SOLN BOTH EYES SCH (21:41)
[2019-11-12] MEDS: methylPREDNISolone SOD SUC 40 MG/1 ML VIAL IV SCH (06:14)
[2019-11-12] MEDS: LEVOTHYROXINE 25 MCG TABLET PO SCH (06:14)
[2019-11-12] MEDS: INSULIN REGULAR 100 UNIT/ML SUBCUT SCH (08:00)
[2019-11-12] MEDS: LINACLOTIDE 145 MCG CAPSULE PO SCH (09:25)
[2019-11-12] MEDS: traMADol 50 MG TABLET PO SCH ×2 (09:26→15:20)
[2019-11-12] MEDS: DOCUSATE SODIUM 100 MG CAPSULE PO SCH (09:26)
[2019-11-12] MEDS: DOXAZOSIN 4 MG TABLET PO SCH (09:26)
[2019-11-12] MEDS: PANTOPRAZOLE 40 MG TABLET PO SCH (09:27)
[2019-11-12] MEDS: CLOPIDOGREL 75 MG TABLET PO SCH (09:27)
[2019-11-12] MEDS: carvediloL 6.25 MG TABLET PO SCH (09:27)
[2019-11-12] MEDS: ASPIRIN EC 81 MG TABLET PO SCH (09:27)
[2019-11-12] MEDS: ISOSORBIDE MONONITRATE 60 MG TABLET PO SCH (09:27)
[2019-11-12] MEDS: FERROUS SULFATE 325 MG TABLET PO SCH (09:27)
[2019-11-12] MEDS: MAGNESIUM CHLORIDE 64 MG TABLET PO SCH (09:27)
[2019-11-12] MEDS: LIDOCAINE 5% PATCH TRANSDERM SCH (09:31)
[2019-11-12] MEDS: INSULIN GLARGINE 100 UNIT/ML SUBCUT SCH (09:31)
[2019-11-12] MEDS ORDERED: TUBERCULIN SKIN TEST 0.1 ML SYRINGE INTRADERM ONE (09:43)
[2019-11-12 10:13] LABS: Basophils % 0.3 % (0.0-0.8); Eosinophils % 0.3 % (0.00-10.9); Hematocrit 31.8 VOL% (35.7-47.0); Hemoglobin 10.2 GM/DL (12.0-16.0); Immature Granulocytes % 0.9 %; Immature Granulocytes Absolute 0.11 #; Lymphocytes # 1.2 10*3/uL (1.4-4.0); Lymphocytes % 9.9 % (21.3-54.2); Mean Corpuscular HGB Conc 32.1 GM/DL (32-36); Mean Corpuscular Volume 93.3 FL (87-102); Mean Platelet Volume 11.5 FL (9.6-12.0); Monocytes % 2.7 % (1.7-12.7); Neutrophils % 85.9 % (38.7-73.9); Platelet Count 258 T/CUMM (130-400); Red Blood Count 3.41 MC/CUMM (3.8-5.5); Red Cell Distribution Width 12.5 % (9.3-17.3)
[2019-11-12 10:23] LABS: Calcium 9.3 MG/DL (8.5-10.1); Osmolality,Calculated 281.2 MOS/KG (273-304)
[2019-11-12 12:01] VITALS: BP 178/75
== END 2019-11-12 17:48 | DRG 392 ==
LOC: EDBD → EDUNIT# → N.EDINP 11:35 → N.ED 11:35 → N.TELEN 13:51
PROVIDERS: ADMIT Internal Medicine; ATTEND Internal Medicine

== ENCOUNTER 2019-12-20 09:24 | Inpatient (IN) ==
[2019-12-20] MEDS ORDERED: SODIUM CHLORIDE 0.9% 500 ML IV STA (10:16)
[2019-12-20 11:11] LABS: Basophils % 0.4 % (0.0-0.8); Eosinophils # 0.3 10*3/uL (0.0-0.87); Eosinophils % 4.5 % (0.00-10.9); Hemoglobin 10.1 GM/DL (12.0-16.0); Immature Granulocytes % 0.3 %; Immature Granulocytes Absolute 0.02 #; Lymphocytes # 1.8 10*3/uL (1.4-4.0); Lymphocytes % 25.8 % (21.3-54.2); Mean Corpuscular HGB Conc 31.6 GM/DL (32-36); Mean Corpuscular Volume 93.8 FL (87-102); Mean Platelet Volume 10.9 FL (9.6-12.0); Monocytes % 6.9 % (1.7-12.7); Neutrophils % 62.1 % (38.7-73.9); Platelet Count 287 T/CUMM (130-400); Red Blood Count 3.41 MC/CUMM (3.8-5.5); Red Cell Distribution Width 12.8 % (9.3-17.3); White Blood Count 6.9 T/CUMM (4-12)
[2019-12-20 11:27] LABS: Alanine Aminotransferase 16 U/L (13-56); Alkaline Phosphatase 72 U/L (45-117); Aspartate Amino Transferase 15 U/L (0-37); Bilirubin,Total < 0.39 MG/DL (0.2-1.0); Blood Urea Nitrogen 34 MG/DL (7-18); Calcium 10.4 MG/DL (8.5-10.1); Estimated Glom Filtration Rate 78 ML/MIN; Glucose 128 MG/DL (74-106); Osmolality,Calculated 282.8 MOS/KG (273-304); Total Protein 7.2 G/DL (6.4-8.3)
[2019-12-20 12:24] LABS: Apearance,Urine CLOUDY (Clear); Bacteria,Urine Occasional /HPF (Few); Bilirubin,Urine Negative (Negative); Blood, Urine Negative (Negative); Glucose,Urine (UA) Negative (Negative); Hyaline Casts,Urine 4 /LPF (0-3); Ketones,Urine Negative (Negative); Mucus,Urine Occasional /LPF (Occasional); Nitrite,Urine Negative (Negative); Protein,Urine 30 MG/DL; Urine Color Yellow (Yellow); Urine Specific Gravity 1.015 (1.001-1.035); Urine Urobilinogen < 2.0 EU/DL (0.2-1.0); WBC,Urine 406 /HPF (0-6)
[2019-12-20] MEDS ORDERED: ONDANSETRON 4 MG/2 ML VIAL IV PRN (13:52)
[2019-12-20] MEDS ORDERED: BISACODYL 10 MG SUPP RECTAL PRN (13:57)
[2019-12-20] MEDS ORDERED: ACETAMINOPHEN 325 MG TABLET PO PRN (13:57)
[2019-12-20] MEDS ORDERED: ALUMINUM/MAGNES/SIMETH MAX STR 30 ML UDCUP PO PRN (13:57)
[2019-12-20] MEDS ORDERED: SKIN HEALING OINT (AQUAPHOR) 50 GM TUBE TOP PRN (13:57)
[2019-12-20] MEDS ORDERED: GLUCAGON 1 MG VIAL IM PRN (13:57)
[2019-12-20] MEDS ORDERED: ZINC OXIDE PASTE 113 GM TUBE TOP PRN (16:00)
[2019-12-20] MEDS: SODIUM CHLORIDE 0.9% 1,000 ML IV SCH (18:08)
[2019-12-20] MEDS: cefTRIAXone 1,000 MG in SYRINGE 1 EACH IV SCH (18:34)
[2019-12-20] MEDS: carvediloL 6.25 MG TABLET PO SCH (18:51)
[2019-12-20] MEDS: INSULIN REGULAR 100 UNIT/ML SUBCUT SCH (18:51)
[2019-12-20] MEDS ORDERED: CRAN VITC MANNOSE FOS BROMELN PO SCH (21:00)
[2019-12-20] MEDS: LACTULOSE 20 GM/30 ML UDCUP PO SCH (22:34)
[2019-12-20] MEDS: MAGNESIUM CHLORIDE 64 MG TABLET PO SCH (22:34)
[2019-12-20] MEDS: FERROUS SULFATE 325 MG TABLET PO SCH (22:34)
[2019-12-20] MEDS: SIMVASTATIN 10 MG TABLET PO SCH (22:34)
[2019-12-20] MEDS: CARBOXYMETHYLCELLULOSE 1% OPH SOLN BOTH EYES SCH (22:34)
[2019-12-20] MEDS: DOCUSATE SODIUM 100 MG CAPSULE PO SCH ×2 (22:35)
[2019-12-21] MEDS: LEVOTHYROXINE 25 MCG TABLET PO SCH (05:29)
[2019-12-21] MEDS: SODIUM CHLORIDE 0.9% 1,000 ML IV SCH (07:30)
[2019-12-21] MEDS: CLOPIDOGREL 75 MG TABLET PO SCH (09:20)
[2019-12-21] MEDS: PANTOPRAZOLE 40 MG TABLET PO SCH ×2 (09:20→10:09)
[2019-12-21] MEDS: MAGNESIUM CHLORIDE 64 MG TABLET PO SCH ×2 (09:20→21:58)
[2019-12-21] MEDS: MULTIVITAMIN (CENTRUM) TABLET PO SCH (09:21)
[2019-12-21] MEDS: DOXAZOSIN 1 MG TABLET PO SCH (09:21)
[2019-12-21] MEDS: carvediloL 6.25 MG TABLET PO SCH ×2 (09:22→17:31)
[2019-12-21] MEDS: ISOSORBIDE MONONITRATE 60 MG TABLET PO SCH (09:23)
[2019-12-21] MEDS: FERROUS SULFATE 325 MG TABLET PO SCH ×2 (09:23→21:57)
[2019-12-21] MEDS: OMEGA 3 ACID ETHYL ESTERS 1 GM CAPSULE PO SCH (09:23)
[2019-12-21] MEDS: PARoxetine 10 MG TABLET PO SCH (09:23)
[2019-12-21] MEDS: levETIRAcetam 500 MG TABLET PO SCH (09:23)
[2019-12-21] MEDS: ASPIRIN EC 81 MG TABLET PO SCH (09:23)
[2019-12-21] MEDS: INSULIN REGULAR 100 UNIT/ML SUBCUT SCH ×2 (09:24→16:41)
[2019-12-21] MEDS: DOCUSATE SODIUM 100 MG CAPSULE PO SCH ×4 (09:25→21:57)
[2019-12-21] MEDS: INSULIN GLARGINE 100 UNIT/ML SUBCUT SCH (10:08)
[2019-12-21] MEDS: LIDOCAINE 5% PATCH TRANSDERM SCH (10:08)
[2019-12-21] MEDS: LACTULOSE 20 GM/30 ML UDCUP PO SCH ×2 (10:08→21:57)
[2019-12-21] MEDS: BISACODYL 5 MG TABLET PO SCH (10:08)
[2019-12-21] MEDS ORDERED: SODIUM CHLOR 0.9% KCL 20 MEQ 20 MEQ/1,000 ML BAG IV SCH (13:00)
[2019-12-21] MEDS: cefTRIAXone 1,000 MG in SYRINGE 1 EACH IV SCH (14:33)
[2019-12-21] MEDS: SODIUM CHLOR 0.9% KCL 20 MEQ 20 MEQ/1,000 ML BAG IV SCH (14:40)
[2019-12-21] MEDS: hydrALAZINE 20 MG/1 ML VIAL IV PRN ×2 (14:49→21:36)
[2019-12-21] MEDS ORDERED: cloNIDine 0.2 MG/24 HR PATCH TRANSDERM SCH (15:00)
[2019-12-21] MEDS: SIMVASTATIN 10 MG TABLET PO SCH (21:58)
[2019-12-21] MEDS: CARBOXYMETHYLCELLULOSE 1% OPH SOLN BOTH EYES SCH (21:58)
[2019-12-22] MEDS: SODIUM CHLOR 0.9% KCL 20 MEQ 20 MEQ/1,000 ML BAG IV SCH ×2 (04:10→22:14)
[2019-12-22 05:33] LABS: Basophils % 0.3 % (0.0-0.8); Eosinophils # 0.1 10*3/uL (0.0-0.87); Eosinophils % 0.6 % (0.00-10.9); Hemoglobin 9.6 GM/DL (12.0-16.0); Immature Granulocytes % 0.5 %; Immature Granulocytes Absolute 0.06 #; Lymphocytes # 2.1 10*3/uL (1.4-4.0); Mean Corpuscular Volume 91.7 FL (87-102); Mean Platelet Volume 10.8 FL (9.6-12.0); Neutrophils % 73.6 % (38.7-73.9); Platelet Count 307 T/CUMM (130-400); Red Blood Count 3.27 MC/CUMM (3.8-5.5); Red Cell Distribution Width 12.5 % (9.3-17.3); White Blood Count 11.2 T/CUMM (4-12)
[2019-12-22] MEDS: LEVOTHYROXINE 25 MCG TABLET PO SCH (05:59)
[2019-12-22 06:18] LABS: Albumin 2.8 G/DL (3.4-5.0); Calcium 9.9 MG/DL (8.5-10.1); Osmolality,Calculated 284.3 MOS/KG (273-304); Risk Ratio 4.12; Thyroid Stimulating Hormone 3.11 uIU/ml (0.358-3.74); Total Protein 6.6 G/DL (6.4-8.3); VLDL CHOLESTEROL 21.6 MG/DL
[2019-12-22] MEDS: hydrALAZINE 20 MG/1 ML VIAL IV PRN (07:46)
[2019-12-22] MEDS ORDERED: NITROFURANTOIN MACRO/MONO 100 MG CAPSULE PO SCH (09:00)
[2019-12-22] MEDS: ASPIRIN EC 81 MG TABLET PO SCH (10:40)
[2019-12-22] MEDS: carvediloL 6.25 MG TABLET PO SCH ×2 (10:40→18:09)
[2019-12-22] MEDS: CLOPIDOGREL 75 MG TABLET PO SCH (10:40)
[2019-12-22] MEDS: MAGNESIUM CHLORIDE 64 MG TABLET PO SCH ×3 (10:45→22:16)
[2019-12-22] MEDS: levETIRAcetam 500 MG TABLET PO SCH (10:45)
[2019-12-22] MEDS: FERROUS SULFATE 325 MG TABLET PO SCH ×3 (10:46→22:15)
[2019-12-22] MEDS: PARoxetine 10 MG TABLET PO SCH ×2 (10:46→11:51)
[2019-12-22] MEDS: ISOSORBIDE MONONITRATE 60 MG TABLET PO SCH (10:46)
[2019-12-22] MEDS: DOCUSATE SODIUM 100 MG CAPSULE PO SCH ×5 (10:46→22:15)
[2019-12-22] MEDS: DOXAZOSIN 1 MG TABLET PO SCH ×2 (10:47→11:50)
[2019-12-22] MEDS: MULTIVITAMIN (CENTRUM) TABLET PO SCH ×2 (10:47→11:50)
[2019-12-22] MEDS: OMEGA 3 ACID ETHYL ESTERS 1 GM CAPSULE PO SCH ×2 (10:47→11:51)
[2019-12-22] MEDS: PANTOPRAZOLE 40 MG TABLET PO SCH ×3 (10:47→11:51)
[2019-12-22] MEDS: INSULIN REGULAR 100 UNIT/ML SUBCUT SCH ×2 (11:47→17:31)
[2019-12-22] MEDS: BISACODYL 5 MG TABLET PO SCH (11:47)
[2019-12-22] MEDS: INSULIN GLARGINE 100 UNIT/ML SUBCUT SCH (11:47)
[2019-12-22] MEDS: LACTULOSE 20 GM/30 ML UDCUP PO SCH ×2 (11:47→22:15)
[2019-12-22] MEDS: LIDOCAINE 5% PATCH TRANSDERM SCH (11:47)
[2019-12-22] MEDS: ACETAMINOPHEN 325 MG TABLET PO PRN (12:57)
[2019-12-22] MEDS: cefTRIAXone 1,000 MG in SYRINGE 1 EACH IV SCH (14:11)
[2019-12-22] MEDS ORDERED: MAGNESIUM SULF RIDER 2 GM in PREMIX 1 EACH IV ONE (15:10)
[2019-12-22] MEDS: MAGNESIUM HYDROXIDE SUSP 30 ML UDCUP PO PRN (16:25)
[2019-12-22] MEDS: traMADol 50 MG TABLET PO PRN (17:25)
[2019-12-22] MEDS: CARBOXYMETHYLCELLULOSE 1% OPH SOLN BOTH EYES SCH (22:15)
[2019-12-22] MEDS: SIMVASTATIN 10 MG TABLET PO SCH (22:16)
[2019-12-23] MEDS: LEVOTHYROXINE 25 MCG TABLET PO SCH (05:53)
[2019-12-23 05:56] LABS: Basophils % 0.5 % (0.0-0.8); Eosinophils # 0.3 10*3/uL (0.0-0.87); Eosinophils % 3.4 % (0.00-10.9); Hemoglobin 7.4 GM/DL (12.0-16.0); Immature Granulocytes % 0.4 %; Immature Granulocytes Absolute 0.03 #; Lymphocytes # 1.9 10*3/uL (1.4-4.0); Lymphocytes % 23.2 % (21.3-54.2); Mean Corpuscular HGB Conc 30.8 GM/DL (32-36); Mean Corpuscular Volume 94.1 FL (87-102); Mean Platelet Volume 11.5 FL (9.6-12.0); Monocytes % 9.8 % (1.7-12.7); Neutrophils % 62.7 % (38.7-73.9); Platelet Count 238 T/CUMM (130-400); Red Blood Count 2.55 MC/CUMM (3.8-5.5); White Blood Count 8.2 T/CUMM (4-12)
[2019-12-23 06:08] LABS: Calcium 9.2 MG/DL (8.5-10.1); Osmolality,Calculated 293.1 MOS/KG (273-304)
[2019-12-23] MEDS: INSULIN REGULAR 100 UNIT/ML SUBCUT SCH ×2 (08:55→16:28)
[2019-12-23] MEDS: MAGNESIUM CHLORIDE 64 MG TABLET PO SCH ×2 (08:57→22:20)
[2019-12-23] MEDS: DOXAZOSIN 1 MG TABLET PO SCH (08:57)
[2019-12-23] MEDS: FERROUS SULFATE 325 MG TABLET PO SCH ×2 (08:58→22:18)
[2019-12-23] MEDS: PANTOPRAZOLE 40 MG TABLET PO SCH ×2 (08:58→09:20)
[2019-12-23] MEDS: ISOSORBIDE MONONITRATE 60 MG TABLET PO SCH (08:58)
[2019-12-23] MEDS: ASPIRIN EC 81 MG TABLET PO SCH (08:58)
[2019-12-23] MEDS: BISACODYL 5 MG TABLET PO SCH (08:58)
[2019-12-23] MEDS: carvediloL 6.25 MG TABLET PO SCH ×2 (08:58→17:03)
[2019-12-23] MEDS: CLOPIDOGREL 75 MG TABLET PO SCH (08:58)
[2019-12-23] MEDS: OMEGA 3 ACID ETHYL ESTERS 1 GM CAPSULE PO SCH (08:58)
[2019-12-23] MEDS: PARoxetine 10 MG TABLET PO SCH (08:58)
[2019-12-23] MEDS: MULTIVITAMIN (CENTRUM) TABLET PO SCH (08:58)
[2019-12-23] MEDS: DOCUSATE SODIUM 100 MG CAPSULE PO SCH ×3 (08:59→22:18)
[2019-12-23] MEDS: SODIUM CHLOR 0.9% KCL 20 MEQ 20 MEQ/1,000 ML BAG IV SCH (09:08)
[2019-12-23] MEDS: INSULIN GLARGINE 100 UNIT/ML SUBCUT SCH (09:13)
[2019-12-23] MEDS: LACTULOSE 20 GM/30 ML UDCUP PO SCH ×2 (09:17→22:20)
[2019-12-23] MEDS: LIDOCAINE 5% PATCH TRANSDERM SCH (09:20)
[2019-12-23] MEDS: levETIRAcetam 500 MG TABLET PO SCH (09:23)
[2019-12-23] MEDS: ACETAMINOPHEN 325 MG TABLET PO PRN (09:52)
[2019-12-23] MEDS: cefTRIAXone 1,000 MG in SYRINGE 1 EACH IV SCH (14:55)
[2019-12-23] MEDS: traMADol 50 MG TABLET PO PRN ×2 (16:29→22:18)
[2019-12-23] MEDS: CARBOXYMETHYLCELLULOSE 1% OPH SOLN BOTH EYES SCH (22:17)
[2019-12-23] MEDS: SIMVASTATIN 10 MG TABLET PO SCH (22:18)
[2019-12-24 05:25] LABS: Basophils # 0.1 10*3/uL (0.0-0.2); Basophils % 0.6 % (0.0-0.8); Eosinophils # 0.3 10*3/uL (0.0-0.87); Eosinophils % 3.8 % (0.00-10.9); Hematocrit 24.1 VOL% (35.7-47.0); Hemoglobin 7.5 GM/DL (12.0-16.0); Immature Granulocytes % 0.5 %; Immature Granulocytes Absolute 0.04 #; Lymphocytes # 2.1 10*3/uL (1.4-4.0); Lymphocytes % 24.2 % (21.3-54.2); Mean Corpuscular HGB Conc 31.1 GM/DL (32-36); Mean Corpuscular Volume 94.9 FL (87-102); Mean Platelet Volume 11.7 FL (9.6-12.0); Monocytes % 7.9 % (1.7-12.7); Platelet Count 247 T/CUMM (130-400); Red Blood Count 2.54 MC/CUMM (3.8-5.5); Red Cell Distribution Width 13.2 % (9.3-17.3); White Blood Count 8.5 T/CUMM (4-12)
[2019-12-24 05:38] LABS: Calcium 9.8 MG/DL (8.5-10.1); Osmolality,Calculated 297.1 MOS/KG (273-304)
[2019-12-24] MEDS: LEVOTHYROXINE 25 MCG TABLET PO SCH (05:58)
[2019-12-24] MEDS: INSULIN REGULAR 100 UNIT/ML SUBCUT SCH ×2 (08:42→16:38)
[2019-12-24] MEDS: INSULIN GLARGINE 100 UNIT/ML SUBCUT SCH (09:30)
[2019-12-24] MEDS: LACTULOSE 20 GM/30 ML UDCUP PO SCH ×2 (09:30→22:33)
[2019-12-24] MEDS: LIDOCAINE 5% PATCH TRANSDERM SCH (09:31)
[2019-12-24] MEDS: carvediloL 6.25 MG TABLET PO SCH ×2 (09:32→16:39)
[2019-12-24] MEDS: CLOPIDOGREL 75 MG TABLET PO SCH (09:32)
[2019-12-24] MEDS: MULTIVITAMIN (CENTRUM) TABLET PO SCH (09:32)
[2019-12-24] MEDS: BISACODYL 5 MG TABLET PO SCH (09:32)
[2019-12-24] MEDS: MAGNESIUM CHLORIDE 64 MG TABLET PO SCH ×2 (09:32→22:33)
[2019-12-24] MEDS: DOXAZOSIN 1 MG TABLET PO SCH (09:32)
[2019-12-24] MEDS: PANTOPRAZOLE 40 MG TABLET PO SCH (09:32)
[2019-12-24] MEDS: PARoxetine 10 MG TABLET PO SCH (09:33)
[2019-12-24] MEDS: FERROUS SULFATE 325 MG TABLET PO SCH (09:33)
[2019-12-24] MEDS: ISOSORBIDE MONONITRATE 60 MG TABLET PO SCH (09:33)
[2019-12-24] MEDS: DOCUSATE SODIUM 100 MG CAPSULE PO SCH ×2 (09:33→22:34)
[2019-12-24] MEDS: ASPIRIN EC 81 MG TABLET PO SCH (09:33)
[2019-12-24] MEDS: levETIRAcetam 500 MG TABLET PO SCH (09:34)
[2019-12-24] MEDS ORDERED: DOXAZOSIN 1 MG TABLET PO SCH (13:16)
[2019-12-24] MEDS ORDERED: SODIUM CHLORIDE 0.9% 1,000 ML IV PRN (13:18)
[2019-12-24] MEDS: traMADol 50 MG TABLET PO PRN (13:44)
[2019-12-24] MEDS: cefTRIAXone 1,000 MG in SYRINGE 1 EACH IV SCH (14:00)
[2019-12-24] MEDS: ACETAMINOPHEN 325 MG TABLET PO PRN (16:12)
[2019-12-24] MEDS: SIMVASTATIN 10 MG TABLET PO SCH (22:33)
[2019-12-24] MEDS: CARBOXYMETHYLCELLULOSE 1% OPH SOLN BOTH EYES SCH (22:34)
[2019-12-25] MEDS ORDERED: FUROSEMIDE 20 MG/2 ML VIAL IV ONE (00:44)
[2019-12-25] MEDS: LEVOTHYROXINE 25 MCG TABLET PO SCH (05:15)
[2019-12-25 06:26] LABS: Basophils % 0.5 % (0.0-0.8); Eosinophils # 0.2 10*3/uL (0.0-0.87); Hemoglobin 10.7 GM/DL (12.0-16.0); Immature Granulocytes % 0.4 %; Immature Granulocytes Absolute 0.03 #; Lymphocytes # 2.4 10*3/uL (1.4-4.0); Mean Corpuscular HGB Conc 31.5 GM/DL (32-36); Mean Corpuscular Volume 87.2 FL (87-102); Mean Platelet Volume 11.4 FL (9.6-12.0); Monocytes % 8.9 % (1.7-12.7); Neutrophils % 55.2 % (38.7-73.9); Platelet Count 232 T/CUMM (130-400); White Blood Count 7.3 T/CUMM (4-12)
[2019-12-25 06:50] LABS: Calcium 9.9 MG/DL (8.5-10.1); Osmolality,Calculated 290.4 MOS/KG (273-304)
[2019-12-25] MEDS: CLOPIDOGREL 75 MG TABLET PO SCH (10:03)
[2019-12-25] MEDS: carvediloL 6.25 MG TABLET PO SCH ×2 (10:04→18:37)
[2019-12-25] MEDS: ASPIRIN EC 81 MG TABLET PO SCH (10:04)
[2019-12-25] MEDS: PARoxetine 10 MG TABLET PO SCH (10:08)
[2019-12-25] MEDS: ISOSORBIDE MONONITRATE 60 MG TABLET PO SCH (10:08)
[2019-12-25] MEDS: BISACODYL 5 MG TABLET PO SCH (10:08)
[2019-12-25] MEDS: DOXAZOSIN 1 MG TABLET PO SCH (10:08)
[2019-12-25] MEDS: MULTIVITAMIN (CENTRUM) TABLET PO SCH (10:13)
[2019-12-25] MEDS: levETIRAcetam 500 MG TABLET PO SCH (10:13)
[2019-12-25] MEDS: PANTOPRAZOLE 40 MG TABLET PO SCH (10:13)
[2019-12-25] MEDS: FERROUS SULFATE 325 MG TABLET PO SCH (10:14)
[2019-12-25] MEDS: MAGNESIUM CHLORIDE 64 MG TABLET PO SCH ×2 (10:14→20:42)
[2019-12-25] MEDS: DOCUSATE SODIUM 100 MG CAPSULE PO SCH ×2 (10:20→20:42)
[2019-12-25] MEDS: LACTULOSE 20 GM/30 ML UDCUP PO SCH (10:22)
[2019-12-25] MEDS: LIDOCAINE 5% PATCH TRANSDERM SCH (10:24)
[2019-12-25] MEDS: INSULIN REGULAR 100 UNIT/ML SUBCUT SCH ×2 (11:18→18:35)
[2019-12-25] MEDS: traMADol 50 MG TABLET PO PRN (11:37)
[2019-12-25] MEDS: INSULIN GLARGINE 100 UNIT/ML SUBCUT SCH (11:39)
[2019-12-25] MEDS: cefTRIAXone 1,000 MG in SYRINGE 1 EACH IV SCH (15:44)
[2019-12-25] MEDS: SIMVASTATIN 10 MG TABLET PO SCH (20:42)
[2019-12-25] MEDS: ACETAMINOPHEN 325 MG TABLET PO PRN (20:43)
[2019-12-26] MEDS: LACTULOSE 20 GM/30 ML UDCUP PO SCH ×3 (01:12→21:07)
[2019-12-26] MEDS: CARBOXYMETHYLCELLULOSE 1% OPH SOLN BOTH EYES SCH ×2 (01:12→21:07)
[2019-12-26 06:07] LABS: Basophils % 0.7 % (0.0-0.8); Eosinophils # 0.2 10*3/uL (0.0-0.87); Eosinophils % 3.6 % (0.00-10.9); Hematocrit 32.7 VOL% (35.7-47.0); Hemoglobin 10.3 GM/DL (12.0-16.0); Immature Granulocytes % 0.5 %; Immature Granulocytes Absolute 0.03 #; Lymphocytes # 1.9 10*3/uL (1.4-4.0); Lymphocytes % 31.1 % (21.3-54.2); Mean Corpuscular HGB Conc 31.5 GM/DL (32-36); Mean Corpuscular Volume 86.7 FL (87-102); Mean Platelet Volume 11.2 FL (9.6-12.0); Neutrophils % 54.1 % (38.7-73.9); Platelet Count 209 T/CUMM (130-400); Red Blood Count 3.77 MC/CUMM (3.8-5.5); Red Cell Distribution Width 18.2 % (9.3-17.3); White Blood Count 6.1 T/CUMM (4-12)
[2019-12-26] MEDS: LEVOTHYROXINE 25 MCG TABLET PO SCH (06:07)
[2019-12-26 06:26] LABS: Calcium 9.7 MG/DL (8.5-10.1); Osmolality,Calculated 284.4 MOS/KG (273-304)
[2019-12-26] MEDS: INSULIN REGULAR 100 UNIT/ML SUBCUT SCH ×2 (09:30→17:34)
[2019-12-26] MEDS: INSULIN GLARGINE 100 UNIT/ML SUBCUT SCH (09:31)
[2019-12-26] MEDS: BISACODYL 5 MG TABLET PO SCH (09:31)
[2019-12-26] MEDS: ASPIRIN EC 81 MG TABLET PO SCH (09:32)
[2019-12-26] MEDS: PANTOPRAZOLE 40 MG TABLET PO SCH (09:32)
[2019-12-26] MEDS: levETIRAcetam 500 MG TABLET PO SCH (09:32)
[2019-12-26] MEDS: MAGNESIUM HYDROXIDE SUSP 30 ML UDCUP PO PRN (09:32)
[2019-12-26] MEDS: DOCUSATE SODIUM 100 MG CAPSULE PO SCH ×2 (09:32→21:07)
[2019-12-26] MEDS: DOXAZOSIN 1 MG TABLET PO SCH (09:33)
[2019-12-26] MEDS: ISOSORBIDE MONONITRATE 60 MG TABLET PO SCH (09:33)
[2019-12-26] MEDS: carvediloL 6.25 MG TABLET PO SCH ×2 (09:33→17:35)
[2019-12-26] MEDS: CLOPIDOGREL 75 MG TABLET PO SCH (09:33)
[2019-12-26] MEDS: MULTIVITAMIN (CENTRUM) TABLET PO SCH (09:33)
[2019-12-26] MEDS: PARoxetine 10 MG TABLET PO SCH (09:34)
[2019-12-26] MEDS: LIDOCAINE 5% PATCH TRANSDERM SCH (09:34)
[2019-12-26] MEDS: FERROUS SULFATE 325 MG TABLET PO SCH (09:36)
[2019-12-26] MEDS: MAGNESIUM CHLORIDE 64 MG TABLET PO SCH ×2 (09:41→21:07)
[2019-12-26] MEDS: cefTRIAXone 1,000 MG in SYRINGE 1 EACH IV SCH (15:14)
[2019-12-26] MEDS: SIMVASTATIN 10 MG TABLET PO SCH (21:04)
[2019-12-27 05:12] LABS: Basophils % 0.4 % (0.0-0.8); Eosinophils # 0.2 10*3/uL (0.0-0.87); Eosinophils % 2.3 % (0.00-10.9); Hematocrit 34.9 VOL% (35.7-47.0); Hemoglobin 11.4 GM/DL (12.0-16.0); Immature Granulocytes % 0.4 %; Immature Granulocytes Absolute 0.03 #; Lymphocytes # 2.2 10*3/uL (1.4-4.0); Lymphocytes % 26.3 % (21.3-54.2); Mean Corpuscular HGB Conc 32.7 GM/DL (32-36); Mean Corpuscular Volume 84.7 FL (87-102); Mean Platelet Volume 11.5 FL (9.6-12.0); Monocytes % 9.3 % (1.7-12.7); Neutrophils % 61.3 % (38.7-73.9); Platelet Count 226 T/CUMM (130-400); Red Blood Count 4.12 MC/CUMM (3.8-5.5); White Blood Count 8.3 T/CUMM (4-12)
[2019-12-27 05:39] LABS: Calcium 10.2 MG/DL (8.5-10.1); Osmolality,Calculated 283.4 MOS/KG (273-304)
[2019-12-27] MEDS: LEVOTHYROXINE 25 MCG TABLET PO SCH (05:41)
[2019-12-27] MEDS: INSULIN REGULAR 100 UNIT/ML SUBCUT SCH (07:29)
[2019-12-27] MEDS: LIDOCAINE 5% PATCH TRANSDERM SCH (08:03)
[2019-12-27] MEDS: MULTIVITAMIN (CENTRUM) TABLET PO SCH (08:04)
[2019-12-27] MEDS: DOXAZOSIN 1 MG TABLET PO SCH (08:04)
[2019-12-27] MEDS: FERROUS SULFATE 325 MG TABLET PO SCH (08:04)
[2019-12-27] MEDS: INSULIN GLARGINE 100 UNIT/ML SUBCUT SCH (08:04)
[2019-12-27] MEDS: CLOPIDOGREL 75 MG TABLET PO SCH (08:04)
[2019-12-27] MEDS: PANTOPRAZOLE 40 MG TABLET PO SCH (08:05)
[2019-12-27] MEDS: DOCUSATE SODIUM 100 MG CAPSULE PO SCH (08:05)
[2019-12-27] MEDS: carvediloL 6.25 MG TABLET PO SCH (08:05)
[2019-12-27] MEDS: MAGNESIUM CHLORIDE 64 MG TABLET PO SCH (08:05)
[2019-12-27] MEDS: ISOSORBIDE MONONITRATE 60 MG TABLET PO SCH (08:05)
[2019-12-27] MEDS: PARoxetine 10 MG TABLET PO SCH (08:05)
[2019-12-27] MEDS: levETIRAcetam 500 MG TABLET PO SCH (08:05)
[2019-12-27] MEDS: traMADol 50 MG TABLET PO PRN (08:06)
[2019-12-27] MEDS: BISACODYL 5 MG TABLET PO SCH (08:07)
[2019-12-27] MEDS: LACTULOSE 20 GM/30 ML UDCUP PO SCH (08:07)
[2019-12-27] MEDS: ASPIRIN EC 81 MG TABLET PO SCH (08:07)
[2019-12-27 12:57] VITALS: BP 160/64
[2019-12-27] MEDS: cefTRIAXone 1,000 MG in SYRINGE 1 EACH IV SCH (15:22)
== END 2019-12-27 16:14 | DRG 690 ==
LOC: EDUNIT# → EDBD → N.ED 09:24 → N.EDINP 13:52 → INTOOBSV 13:52 → N.TELES 15:45 → N.4E 12-25 18:36
PROVIDERS: ADMIT Internal Medicine; ATTEND Internal Medicine

== ENCOUNTER 2020-04-25 18:22 | Inpatient (IN) ==
[2020-04-25] MEDS ORDERED: SODIUM CHLORIDE 0.9% 1,000 ML IV STA (18:52)
[2020-04-25 19:13] LABS: Basophils % 0.2 % (0.0-0.8); Eosinophils # 1.4 10*3/uL (0.0-0.87); Eosinophils % 5.6 % (0.00-10.9); Hematocrit 26.6 VOL% (35.7-47.0); Hemoglobin 8.8 GM/DL (12.0-16.0); Immature Granulocytes Absolute 0.24 #; Lymphocytes # 2.8 10*3/uL (1.4-4.0); Lymphocytes % 11.7 % (21.3-54.2); Mean Corpuscular HGB Conc 33.1 GM/DL (32-36); Mean Platelet Volume 11.6 FL (9.6-12.0); Monocytes % 4.8 % (1.7-12.7); Neutrophils % 76.7 % (38.7-73.9); Platelet Count 293 T/CUMM (130-400); Red Blood Count 2.83 MC/CUMM (3.8-5.5); Red Cell Distribution Width 14.1 % (9.3-17.3); White Blood Count 24.2 T/CUMM (4-12)
[2020-04-25 19:25] LABS: INR 1.2; PT Patient Result 12.5 SECS (9.8-11.9)
[2020-04-25 19:30] LABS: Alanine Aminotransferase 13 U/L (13-56); Albumin 2.9 G/DL (3.4-5.0); Alkaline Phosphatase 130 U/L (45-117); Aspartate Amino Transferase 9 U/L (0-37); Bilirubin,Total < 0.39 MG/DL (0.2-1.0); Blood Urea Nitrogen 60 MG/DL (7-18); Calcium 9.9 MG/DL (8.5-10.1); Carbon Dioxide 24 MMOL/L (21-32); Estimated Glom Filtration Rate 57 ML/MIN; Glucose 106 MG/DL (74-106); Osmolality,Calculated 293.5 MOS/KG (273-304); Potassium 4.3 MMOL/L (3.5-5.1); Sodium 139 MMOL/L (136-145); Total Protein 6.4 G/DL (6.4-8.3)
[2020-04-25 19:44] LABS: Eosinophils 5 % (0-10); Lymphocytes 13 % (20-55); Platelet Estimate Normal; Polychromasia Slight; Segmented Neutrophils 81 % (50-85); Total Cells Counted 100
[2020-04-25 19:47] LABS: Bacteria,Urine Occasional /HPF (Few); Bilirubin,Urine Negative (Negative); Blood, Urine Negative (Negative); Glucose,Urine (UA) Negative (Negative); Hyaline Casts,Urine 7 /LPF (0-3); Ketones,Urine Negative (Negative); Mucus,Urine Occasional /LPF (Occasional); Nitrite,Urine Negative (Negative); Protein,Urine 30 MG/DL; Squamous Epithelial Cell,Urine Occasional /HPF (0-10); Urine Appearance Clear (Clear); Urine Color Amber (Yellow); Urine Urobilinogen 0.2 EU/DL (0.2-1.0); WBC,Urine 1 /HPF (0-6)
[2020-04-25] MEDS ORDERED: LEVOFLOXACIN INJ 500 MG in PREMIX 1 EACH IV STA (20:04)
[2020-04-25] MEDS ORDERED: ONDANSETRON 4 MG/2 ML VIAL IV PRN (20:12)
[2020-04-25] MEDS: DEXTROSE 5% NACL 0.9% 1,000 ML IV SCH (20:32)
[2020-04-26] MEDS: DEXTROSE 5% NACL 0.9% 1,000 ML IV SCH ×2 (06:09→16:51)
[2020-04-26 06:45] LABS: Basophils % 0.1 % (0.0-0.8); Eosinophils # 1.7 10*3/uL (0.0-0.87); Eosinophils % 9.6 % (0.00-10.9); Hemoglobin 7.7 GM/DL (12.0-16.0); Immature Granulocytes % 0.9 %; Immature Granulocytes Absolute 0.16 #; Lymphocytes # 1.8 10*3/uL (1.4-4.0); Lymphocytes % 10.5 % (21.3-54.2); Mean Corpuscular HGB Conc 32.1 GM/DL (32-36); Mean Corpuscular Volume 96.4 FL (87-102); Mean Platelet Volume 11.6 FL (9.6-12.0); Neutrophils % 73.9 % (38.7-73.9); Platelet Count 225 T/CUMM (130-400); Red Blood Count 2.49 MC/CUMM (3.8-5.5); Red Cell Distribution Width 14.1 % (9.3-17.3); White Blood Count 17.3 T/CUMM (4-12)
[2020-04-26 07:24] LABS: Albumin 2.3 G/DL (3.4-5.0); Bilirubin,Total 1.1 MG/DL (0.2-1.0); Calcium 9.2 MG/DL (8.5-10.1); Osmolality,Calculated 300.1 MOS/KG (273-304); Potassium 3.9 MMOL/L (3.5-5.1); Total Protein 5.3 G/DL (6.4-8.3)
[2020-04-26] MEDS: PANTOPRAZOLE 40 MG VIAL IV SCH (08:33)
[2020-04-26] MEDS: BISACODYL 10 MG SUPP RECTAL SCH (08:33)
[2020-04-26] MEDS: ASPIRIN EC 81 MG TABLET PO SCH (08:33)
[2020-04-26] MEDS ORDERED: SODIUM CHLORIDE 0.9% 500 ML IV STA (16:24)
[2020-04-26] MEDS ORDERED: GLUCAGON 1 MG VIAL IM PRN (16:26)
[2020-04-26] MEDS ORDERED: ALUMINUM/MAGNES/SIMETH MAX STR 30 ML UDCUP PO PRN (16:26)
[2020-04-26] MEDS ORDERED: SODIUM CHLORIDE 0.9% 500 ML IV ONE (16:28)
[2020-04-26] MEDS: carvediloL 6.25 MG TABLET PO SCH (16:52)
[2020-04-26] MEDS: LACTULOSE 20 GM/30 ML UDCUP PO SCH ×2 (20:17→20:34)
[2020-04-26] MEDS: MAGNESIUM HYDROXIDE SUSP 30 ML UDCUP PO SCH (20:17)
[2020-04-26] MEDS: MAGNESIUM CHLORIDE 64 MG TABLET PO SCH (20:17)
[2020-04-26] MEDS: ACETAMINOPHEN 325 MG TABLET PO PRN (20:18)
[2020-04-26] MEDS: SIMVASTATIN 10 MG TABLET PO SCH (20:18)
[2020-04-26] MEDS: LEVOFLOXACIN INJ 500 MG in PREMIX 1 EACH IV SCH (20:18)
[2020-04-26] MEDS ORDERED: CRAN VITC MANNOSE FOS BROMELN PO SCH (21:00)
[2020-04-26] MEDS: CARBOXYMETHYLCELLULOSE 1% OPH SOLN BOTH EYES SCH (21:27)
[2020-04-26] MEDS: traMADol 50 MG TABLET PO PRN (23:33)
[2020-04-27] MEDS: DEXTROSE 5% NACL 0.9% 1,000 ML IV SCH ×2 (00:09→12:25)
[2020-04-27] MEDS: LEVOTHYROXINE 25 MCG TABLET PO SCH (05:52)
[2020-04-27] MEDS: PANTOPRAZOLE 40 MG VIAL IV SCH (08:35)
[2020-04-27] MEDS: INSULIN GLARGINE 100 UNIT/ML SUBCUT SCH (08:35)
[2020-04-27] MEDS: ISOSORBIDE MONONITRATE 60 MG TABLET PO SCH (08:39)
[2020-04-27] MEDS: MAGNESIUM CHLORIDE 64 MG TABLET PO SCH ×2 (08:39→20:03)
[2020-04-27] MEDS: OMEGA 3 ACID ETHYL ESTERS 1 GM CAPSULE PO SCH (08:39)
[2020-04-27] MEDS: carvediloL 6.25 MG TABLET PO SCH (08:39)
[2020-04-27] MEDS: ASPIRIN EC 81 MG TABLET PO SCH (08:40)
[2020-04-27] MEDS: FERROUS SULFATE 325 MG TABLET PO SCH ×2 (08:40→12:58)
[2020-04-27] MEDS: levETIRAcetam 500 MG TABLET PO SCH (08:40)
[2020-04-27] MEDS: MULTIVITAMIN (CENTRUM) TABLET PO SCH (08:40)
[2020-04-27] MEDS: LACTULOSE 20 GM/30 ML UDCUP PO SCH ×2 (08:40→20:03)
[2020-04-27] MEDS: MAGNESIUM HYDROXIDE SUSP 30 ML UDCUP PO SCH ×2 (08:40→20:02)
[2020-04-27] MEDS ORDERED: GLUCAGON 1 MG VIAL IM PRN (09:20)
[2020-04-27] MEDS ORDERED: DEXTROSE 50% 25 GM/50 ML VIAL IV PRN (09:20)
[2020-04-27] MEDS ORDERED: SODIUM CHLORIDE 0.9% 1,000 ML IV PRN (09:23)
[2020-04-27] MEDS: traMADol 50 MG TABLET PO PRN (11:29)
[2020-04-27] MEDS: PARoxetine 10 MG TABLET PO SCH (11:35)
[2020-04-27] MEDS: CLOPIDOGREL 75 MG TABLET PO SCH (11:35)
[2020-04-27] MEDS: VANCOMYCIN INJ 1,000 MG in SODIUM CHLORIDE 0.9% 250 ML IV SCH (12:23)
[2020-04-27] MEDS: INSULIN REGULAR 100 UNIT/ML SUBCUT SCH ×2 (12:50→21:50)
[2020-04-27] MEDS: LEVOFLOXACIN INJ 500 MG in PREMIX 1 EACH IV SCH (20:01)
[2020-04-27] MEDS: SIMVASTATIN 10 MG TABLET PO SCH (20:03)
[2020-04-27] MEDS: ACETAMINOPHEN 325 MG TABLET PO PRN (20:08)
[2020-04-27] MEDS: CARBOXYMETHYLCELLULOSE 1% OPH SOLN BOTH EYES SCH (20:09)
[2020-04-27] MEDS: NYSTATIN CREAM 15 GM TUBE TOP SCH (20:09)
[2020-04-27] MEDS ORDERED: cloNIDine 0.3 MG/24 HR PATCH TRANSDERM SCH (20:30)
[2020-04-27 21:06] LABS: Hematocrit 28.7 VOL% (35.7-47.0); Hemoglobin 9.4 GM/DL (12.0-16.0)
[2020-04-28] MEDS: VANCOMYCIN INJ 1,000 MG in SODIUM CHLORIDE 0.9% 250 ML IV SCH ×3 (00:31→23:00)
[2020-04-28] MEDS: DEXTROSE 5% NACL 0.9% 1,000 ML IV SCH ×4 (04:10→19:48)
[2020-04-28] MEDS: LEVOTHYROXINE 25 MCG TABLET PO SCH (05:37)
[2020-04-28 05:38] LABS: Basophils % 0.2 % (0.0-0.8); Eosinophils # 4.6 10*3/uL (0.0-0.87); Eosinophils % 30.7 % (0.00-10.9); Hematocrit 29.3 VOL% (35.7-47.0); Hemoglobin 9.6 GM/DL (12.0-16.0); Immature Granulocytes % 1.9 %; Immature Granulocytes Absolute 0.29 #; Lymphocytes # 2.7 10*3/uL (1.4-4.0); Lymphocytes % 18.3 % (21.3-54.2); Mean Corpuscular HGB Conc 32.8 GM/DL (32-36); Mean Corpuscular Volume 93.6 FL (87-102); Mean Platelet Volume 12.3 FL (9.6-12.0); Monocytes % 6.1 % (1.7-12.7); Neutrophils % 42.8 % (38.7-73.9); Platelet Count 204 T/CUMM (130-400); Red Blood Count 3.13 MC/CUMM (3.8-5.5); Red Cell Distribution Width 14.2 % (9.3-17.3); White Blood Count 14.9 T/CUMM (4-12)
[2020-04-28 06:05] LABS: Albumin 2.4 G/DL (3.4-5.0); Bilirubin,Total 0.5 MG/DL (0.2-1.0); Calcium 8.8 MG/DL (8.5-10.1); Osmolality,Calculated 288.7 MOS/KG (273-304); Potassium 3.2 MMOL/L (3.5-5.1); Total Protein 5.4 G/DL (6.4-8.3)
[2020-04-28 06:05] LABS: Eosinophils 30 % (0-10); Hypochromasia 1+; Lymphocytes 14 % (20-55); Microcytosis 1+; Ovalocytes Slight; Platelet Estimate Adequate; Segmented Neutrophils 51 % (50-85); Total Cells Counted 100
[2020-04-28 06:19] LABS: Ferritin 638.2 ng/ml (8-252)
[2020-04-28] MEDS ORDERED: POTASSIUM CHLORIDE 20 MEQ TABLET PO PRN (07:03)
[2020-04-28] MEDS ORDERED: POTASSIUM CHLORIDE 20 MEQ TABLET PO ONE (07:03)
[2020-04-28] MEDS: INSULIN GLARGINE 100 UNIT/ML SUBCUT SCH (07:45)
[2020-04-28] MEDS: FERROUS SULFATE 325 MG TABLET PO SCH ×2 (07:46→11:15)
[2020-04-28] MEDS: CLOPIDOGREL 75 MG TABLET PO SCH (09:15)
[2020-04-28] MEDS: MULTIVITAMIN (CENTRUM) TABLET PO SCH ×2 (09:15→09:16)
[2020-04-28] MEDS: levETIRAcetam 500 MG TABLET PO SCH ×2 (09:15→09:17)
[2020-04-28] MEDS: OMEGA 3 ACID ETHYL ESTERS 1 GM CAPSULE PO SCH ×2 (09:15→09:17)
[2020-04-28] MEDS: PARoxetine 10 MG TABLET PO SCH ×2 (09:15→09:17)
[2020-04-28] MEDS: ISOSORBIDE MONONITRATE 60 MG TABLET PO SCH ×2 (09:15→09:17)
[2020-04-28] MEDS: ASPIRIN EC 81 MG TABLET PO SCH ×2 (09:15→09:17)
[2020-04-28] MEDS: SKIN HEALING OINT (AQUAPHOR) 50 GM TUBE TOP SCH (09:16)
[2020-04-28] MEDS: DOXAZOSIN 1 MG TABLET PO SCH (09:18)
[2020-04-28] MEDS: LACTULOSE 20 GM/30 ML UDCUP PO SCH ×2 (09:18→20:52)
[2020-04-28] MEDS: MAGNESIUM HYDROXIDE SUSP 30 ML UDCUP PO SCH ×2 (09:18→20:53)
[2020-04-28] MEDS: MAGNESIUM CHLORIDE 64 MG TABLET PO SCH ×2 (09:19→20:56)
[2020-04-28] MEDS: NYSTATIN CREAM 15 GM TUBE TOP SCH ×2 (09:19→20:56)
[2020-04-28] MEDS: INSULIN REGULAR 100 UNIT/ML SUBCUT SCH ×4 (10:13→20:54)
[2020-04-28] MEDS: PANTOPRAZOLE 40 MG VIAL IV SCH (10:17)
[2020-04-28] MEDS: SIMVASTATIN 10 MG TABLET PO SCH (20:45)
[2020-04-28] MEDS: traMADol 50 MG TABLET PO PRN (20:45)
[2020-04-28] MEDS: LEVOFLOXACIN INJ 500 MG in PREMIX 1 EACH IV SCH (20:49)
[2020-04-28] MEDS: CARBOXYMETHYLCELLULOSE 1% OPH SOLN BOTH EYES SCH (20:53)
[2020-04-28] MEDS: DICLOFENAC 1% GEL 100 GM TUBE TOP SCH (20:55)
[2020-04-29] MEDS: ACETAMINOPHEN 325 MG TABLET PO PRN (02:00)
[2020-04-29 04:25] LABS: Basophils % 0.1 % (0.0-0.8); Eosinophils # 5.3 10*3/uL (0.0-0.87); Eosinophils % 39.5 % (0.00-10.9); Hematocrit 28.3 VOL% (35.7-47.0); Hemoglobin 9.6 GM/DL (12.0-16.0); Immature Granulocytes % 1.7 %; Immature Granulocytes Absolute 0.23 #; Lymphocytes # 2.1 10*3/uL (1.4-4.0); Lymphocytes % 15.2 % (21.3-54.2); Mean Corpuscular HGB Conc 33.9 GM/DL (32-36); Mean Corpuscular Volume 92.8 FL (87-102); Mean Platelet Volume 11.8 FL (9.6-12.0); Monocytes % 8.2 % (1.7-12.7); Neutrophils % 35.3 % (38.7-73.9); Platelet Count 176 T/CUMM (130-400); Red Blood Count 3.05 MC/CUMM (3.8-5.5); Red Cell Distribution Width 14.2 % (9.3-17.3); White Blood Count 13.5 T/CUMM (4-12)
[2020-04-29 04:46] LABS: Eosinophils 40 % (0-10); Hypochromasia 1+; Lymphocytes 10 % (20-55); Microcytosis 1+; Platelet Estimate Adequate; Segmented Neutrophils 42 % (50-85); Total Cells Counted 100
[2020-04-29] MEDS: DEXTROSE 5% NACL 0.9% 1,000 ML IV SCH ×3 (04:54→21:17)
[2020-04-29 04:56] LABS: Albumin 2.4 G/DL (3.4-5.0); Bilirubin,Total 0.4 MG/DL (0.2-1.0); Calcium 8.6 MG/DL (8.5-10.1); Potassium 3.4 MMOL/L (3.5-5.1); Total Protein 5.4 G/DL (6.4-8.3)
[2020-04-29] MEDS: LEVOTHYROXINE 25 MCG TABLET PO SCH (06:17)
[2020-04-29] MEDS: INSULIN REGULAR 100 UNIT/ML SUBCUT SCH ×3 (09:12→16:58)
[2020-04-29] MEDS: INSULIN GLARGINE 100 UNIT/ML SUBCUT SCH (09:28)
[2020-04-29] MEDS: PANTOPRAZOLE 40 MG VIAL IV SCH (09:28)
[2020-04-29] MEDS: FERROUS SULFATE 325 MG TABLET PO SCH ×2 (09:29→11:34)
[2020-04-29] MEDS: PARoxetine 10 MG TABLET PO SCH (09:29)
[2020-04-29] MEDS: MAGNESIUM HYDROXIDE SUSP 30 ML UDCUP PO SCH (09:29)
[2020-04-29] MEDS: MAGNESIUM CHLORIDE 64 MG TABLET PO SCH ×2 (09:29→21:09)
[2020-04-29] MEDS: LACTULOSE 20 GM/30 ML UDCUP PO SCH (09:29)
[2020-04-29] MEDS: BISACODYL 10 MG SUPP RECTAL SCH (09:29)
[2020-04-29] MEDS: DICLOFENAC 1% GEL 100 GM TUBE TOP SCH ×2 (09:30→14:24)
[2020-04-29] MEDS: ASPIRIN EC 81 MG TABLET PO SCH (09:30)
[2020-04-29] MEDS: NYSTATIN CREAM 15 GM TUBE TOP SCH (09:30)
[2020-04-29] MEDS: levETIRAcetam 500 MG TABLET PO SCH (09:30)
[2020-04-29] MEDS: SKIN HEALING OINT (AQUAPHOR) 50 GM TUBE TOP SCH (09:30)
[2020-04-29] MEDS: ISOSORBIDE MONONITRATE 60 MG TABLET PO SCH (09:30)
[2020-04-29] MEDS: OMEGA 3 ACID ETHYL ESTERS 1 GM CAPSULE PO SCH (09:30)
[2020-04-29] MEDS: MULTIVITAMIN (CENTRUM) TABLET PO SCH (09:30)
[2020-04-29] MEDS: CLOPIDOGREL 75 MG TABLET PO SCH (09:32)
[2020-04-29] MEDS: DOXAZOSIN 1 MG TABLET PO SCH (09:32)
[2020-04-29] MEDS: VANCOMYCIN INJ 1,000 MG in SODIUM CHLORIDE 0.9% 250 ML IV SCH (11:34)
[2020-04-29] MEDS: SIMVASTATIN 10 MG TABLET PO SCH (21:10)
[2020-04-29] MEDS: LEVOFLOXACIN INJ 500 MG in PREMIX 1 EACH IV SCH (21:10)
[2020-04-30] MEDS: MAGNESIUM HYDROXIDE SUSP 30 ML UDCUP PO SCH ×4 (01:01→21:41)
[2020-04-30] MEDS: LACTULOSE 20 GM/30 ML UDCUP PO SCH ×4 (01:01→21:21)
[2020-04-30] MEDS: INSULIN REGULAR 100 UNIT/ML SUBCUT SCH ×5 (01:01→21:31)
[2020-04-30] MEDS: NYSTATIN CREAM 15 GM TUBE TOP SCH ×3 (01:02→21:33)
[2020-04-30] MEDS: CARBOXYMETHYLCELLULOSE 1% OPH SOLN BOTH EYES SCH ×2 (01:02→21:20)
[2020-04-30] MEDS: DICLOFENAC 1% GEL 100 GM TUBE TOP SCH ×4 (01:02→21:33)
[2020-04-30] MEDS: DEXTROSE 5% NACL 0.9% 1,000 ML IV SCH ×3 (01:03→21:32)
[2020-04-30] MEDS: LEVOTHYROXINE 25 MCG TABLET PO SCH (06:03)
[2020-04-30 06:21] LABS: Basophils % 0.1 % (0.0-0.8); Eosinophils # 5.2 10*3/uL (0.0-0.87); Hematocrit 30.4 VOL% (35.7-47.0); Hemoglobin 10.1 GM/DL (12.0-16.0); Immature Granulocytes % 1.4 %; Immature Granulocytes Absolute 0.17 #; Lymphocytes # 1.8 10*3/uL (1.4-4.0); Lymphocytes % 15.3 % (21.3-54.2); Mean Corpuscular HGB Conc 33.2 GM/DL (32-36); Mean Corpuscular Volume 91.8 FL (87-102); Mean Platelet Volume 11.5 FL (9.6-12.0); Monocytes % 8.9 % (1.7-12.7); Neutrophils % 31.3 % (38.7-73.9); Platelet Count 163 T/CUMM (130-400); Red Blood Count 3.31 MC/CUMM (3.8-5.5); White Blood Count 12.1 T/CUMM (4-12)
[2020-04-30 06:39] LABS: Albumin 2.3 G/DL (3.4-5.0); Bilirubin,Total 0.5 MG/DL (0.2-1.0); Calcium 8.7 MG/DL (8.5-10.1); Osmolality,Calculated 279.1 MOS/KG (273-304); Potassium 3.3 MMOL/L (3.5-5.1); Total Protein 5.5 G/DL (6.4-8.3)
[2020-04-30 06:50] LABS: Eosinophils 41 % (0-10); Hypochromasia 1+; Lymphocytes 8 % (20-55); Microcytosis 1+; Platelet Estimate Adequate; Segmented Neutrophils 47 % (50-85); Total Cells Counted 100
[2020-04-30] MEDS: INSULIN GLARGINE 100 UNIT/ML SUBCUT SCH (10:02)
[2020-04-30] MEDS: PANTOPRAZOLE 40 MG VIAL IV SCH (10:06)
[2020-04-30] MEDS: MAGNESIUM CHLORIDE 64 MG TABLET PO SCH ×2 (10:07→21:19)
[2020-04-30] MEDS: FERROUS SULFATE 325 MG TABLET PO SCH ×2 (10:07→15:19)
[2020-04-30] MEDS: ASPIRIN EC 81 MG TABLET PO SCH (10:07)
[2020-04-30] MEDS: MULTIVITAMIN (CENTRUM) TABLET PO SCH (10:07)
[2020-04-30] MEDS: levETIRAcetam 500 MG TABLET PO SCH (10:07)
[2020-04-30] MEDS: PARoxetine 10 MG TABLET PO SCH (10:07)
[2020-04-30] MEDS: DOXAZOSIN 1 MG TABLET PO SCH (10:07)
[2020-04-30] MEDS: SKIN HEALING OINT (AQUAPHOR) 50 GM TUBE TOP SCH (10:08)
[2020-04-30] MEDS: CLOPIDOGREL 75 MG TABLET PO SCH (10:08)
[2020-04-30] MEDS: ISOSORBIDE MONONITRATE 60 MG TABLET PO SCH (10:09)
[2020-04-30] MEDS: OMEGA 3 ACID ETHYL ESTERS 1 GM CAPSULE PO SCH (10:12)
[2020-04-30] MEDS: ACETAMINOPHEN 325 MG TABLET PO PRN (17:02)
[2020-04-30] MEDS ORDERED: SODIUM PHOSPHATE ENEMA 133 ML BOTTLE RECTAL ONE (19:00)
[2020-04-30] MEDS: SIMVASTATIN 10 MG TABLET PO SCH (21:19)
[2020-04-30] MEDS: traMADol 50 MG TABLET PO PRN (21:19)
[2020-04-30] MEDS: LEVOFLOXACIN INJ 500 MG in PREMIX 1 EACH IV SCH (21:20)
[2020-05-01 05:30] LABS: Albumin 2.2 G/DL (3.4-5.0); Bilirubin,Total 0.5 MG/DL (0.2-1.0); Calcium 8.2 MG/DL (8.5-10.1); Osmolality,Calculated 282.1 MOS/KG (273-304); Total Protein 5.4 G/DL (6.4-8.3)
[2020-05-01] MEDS: LEVOTHYROXINE 25 MCG TABLET PO SCH (06:13)
[2020-05-01] MEDS: DEXTROSE 5% NACL 0.9% 1,000 ML IV SCH (08:32)
[2020-05-01 09:45] LABS: Hematocrit 29.9 VOL% (35.7-47.0); Hemoglobin 10.1 GM/DL (12.0-16.0)
[2020-05-01] MEDS: INSULIN REGULAR 100 UNIT/ML SUBCUT SCH ×2 (09:57→14:07)
[2020-05-01] MEDS: LACTULOSE 20 GM/30 ML UDCUP PO SCH (09:59)
[2020-05-01] MEDS: INSULIN GLARGINE 100 UNIT/ML SUBCUT SCH (09:59)
[2020-05-01] MEDS: MAGNESIUM HYDROXIDE SUSP 30 ML UDCUP PO SCH (09:59)
[2020-05-01] MEDS: PANTOPRAZOLE 40 MG VIAL IV SCH (09:59)
[2020-05-01] MEDS: levETIRAcetam 500 MG TABLET PO SCH (10:00)
[2020-05-01] MEDS: MAGNESIUM CHLORIDE 64 MG TABLET PO SCH (10:00)
[2020-05-01] MEDS: PARoxetine 10 MG TABLET PO SCH (10:00)
[2020-05-01] MEDS: OMEGA 3 ACID ETHYL ESTERS 1 GM CAPSULE PO SCH (10:01)
[2020-05-01] MEDS: MULTIVITAMIN (CENTRUM) TABLET PO SCH (10:01)
[2020-05-01] MEDS: CLOPIDOGREL 75 MG TABLET PO SCH (10:01)
[2020-05-01] MEDS: ASPIRIN EC 81 MG TABLET PO SCH (10:01)
[2020-05-01] MEDS: DOXAZOSIN 1 MG TABLET PO SCH (10:01)
[2020-05-01] MEDS: FERROUS SULFATE 325 MG TABLET PO SCH ×2 (10:01→14:08)
[2020-05-01] MEDS: ISOSORBIDE MONONITRATE 60 MG TABLET PO SCH (10:01)
[2020-05-01] MEDS: DICLOFENAC 1% GEL 100 GM TUBE TOP SCH (10:02)
[2020-05-01] MEDS: NYSTATIN CREAM 15 GM TUBE TOP SCH (10:02)
[2020-05-01] MEDS: SKIN HEALING OINT (AQUAPHOR) 50 GM TUBE TOP SCH (10:02)
[2020-05-01 11:20] VITALS: BP 181/58
[2020-05-01] MEDS ORDERED: POTASSIUM CHLORIDE 20 MEQ TABLET PO ONE (13:20)
[2020-05-01] MEDS ORDERED: DOXAZOSIN 2 MG TABLET PO ONE (13:22)
[2020-05-02] MEDS ORDERED: DOXAZOSIN 4 MG TABLET PO SCH (09:00)
[2020-05-03] MEDS ORDERED: CYANOCOBALAMIN 1000 MCG/1 ML VIAL IM SCH (09:00)
[2020-05-03] MEDS ORDERED: cloNIDine 0.2 MG/24 HR PATCH TRANSDERM SCH (09:00)
== END 2020-05-01 15:36 | DRG 194 ==
LOC: EDUNIT# → N.EDINP 18:22 → N.ED 18:22 → N.3E 20:38
PROVIDERS: ADMIT Internal Medicine; ATTEND Internal Medicine

== ENCOUNTER 2020-05-25 02:17 | Inpatient (IN) ==
[2020-05-25] MEDS ORDERED: ALBUTEROL/IPRATROPIUM 3 ML NEB RESP TX STA (02:34)
[2020-05-25] MEDS ORDERED: ONDANSETRON 4 MG/2 ML VIAL IV STA (02:34)
[2020-05-25] MEDS ORDERED: methylPREDNISolone SOD SUC 125 MG/2 ML VIAL IV STA (02:34)
[2020-05-25 02:59] LABS: ABG Base Excess 2.4 MMOL/L (-2.5-2.5); ABG HCO3 26.2 MMOL/L (20-26); ABG Oxygen Saturation 73.3 % (95-100); ABG PCO2 34.6 MM HG (35-48); ABG PH 7.479 (7.35-7.45); ABG TCO2 23.6 MMOL/L (23-27); Allen Test Positive
[2020-05-25 03:00] LABS: ABG PO2 40.3 MM HG (80-95)
[2020-05-25 03:07] LABS: Basophils % 0.1 % (0.0-0.8); Hematocrit 30.8 VOL% (35.7-47.0); Hemoglobin 10.4 GM/DL (12.0-16.0); Immature Granulocytes % 1.3 %; Immature Granulocytes Absolute 0.14 #; Lymphocytes # 0.7 10*3/uL (1.4-4.0); Lymphocytes % 6.1 % (21.3-54.2); Mean Corpuscular HGB Conc 33.8 GM/DL (32-36); Mean Corpuscular Volume 90.6 FL (87-102); Mean Platelet Volume 12.5 FL (9.6-12.0); Monocytes % 0.9 % (1.7-12.7); Neutrophils % 91.6 % (38.7-73.9); Platelet Count 194 T/CUMM (130-400); Red Cell Distribution Width 13.2 % (9.3-17.3); White Blood Count 10.8 T/CUMM (4-12)
[2020-05-25] MEDS ORDERED: LEVOFLOXACIN INJ 750 MG in PREMIX 1 EACH IV STA (03:08)
[2020-05-25 03:13] LABS: Albumin 2.8 G/DL (3.4-5.0); Bilirubin,Total 0.4 MG/DL (0.2-1.0); Osmolality,Calculated 287.5 MOS/KG (273-304); Total Protein 6.9 G/DL (6.4-8.3)
[2020-05-25] MEDS ORDERED: INSULIN REGULAR 100 UNIT/ML SUBCUT STA (03:16)
[2020-05-25] MEDS ORDERED: SODIUM CHLORIDE 0.9% 500 ML IV STA (03:17)
[2020-05-25] MEDS ORDERED: ETOMIDATE 20 MG/10 ML VIAL IV ONE (03:31)
[2020-05-25] MEDS ORDERED: VECURONIUM 10 MG VIAL IV ONE (03:31)
[2020-05-25 03:32] LABS: PT Patient Result 10.3 SECS (9.8-11.9)
[2020-05-25] MEDS ORDERED: ETOMIDATE 20 MG/10 ML VIAL IV STA (03:40)
[2020-05-25] MEDS ORDERED: VECURONIUM 10 MG VIAL IV STA (03:41)
[2020-05-25 03:46] LABS: Lymphocytes 7 % (20-55); Platelet Estimate Adequate; Segmented Neutrophils 93 % (50-85); Total Cells Counted 100
[2020-05-25 03:47] LABS: Hypochromasia Slight; Microcytosis Slight; Ovalocytes Slight
[2020-05-25 04:00] LABS: Bacteria,Urine Occasional /HPF (Few); Bilirubin,Urine Negative (Negative); Blood, Urine Negative (Negative); Glucose,Urine (UA) >=500 mg/dL (Negative); Hyaline Casts,Urine 3 /LPF (0-3); Ketones,Urine Negative (Negative); Mucus,Urine Occasional /LPF (Occasional); Nitrite,Urine Negative (Negative); Protein,Urine 30 MG/DL; RBC,Urine <1 /HPF (0-4); Squamous Epithelial Cell,Urine Occasional /HPF (0-10); Urine Appearance CLEAR (Clear); Urine Color Yellow (Yellow); Urine Specific Gravity 1.007 (1.001-1.035); Urine Urobilinogen < 2.0 EU/DL (0.2-1.0); WBC,Urine 1 /HPF (0-6)
[2020-05-25] MEDS ORDERED: BUMETANIDE 1 MG/4 ML VIAL IV STA ×2 (04:01→04:34)
[2020-05-25] MEDS ORDERED: ALBUTEROL 2.5 MG/3 ML NEB RESP TX PRN (04:13)
[2020-05-25] MEDS ORDERED: VANCOMYCIN INJ 1,000 MG in SODIUM CHLORIDE 0.9% 250 ML IV STA (04:41)
[2020-05-25 05:14] LABS: ABG HCO3 25.7 MMOL/L (20-26); ABG Oxygen Saturation 96.9 % (95-100); ABG PCO2 41.3 MM HG (35-48); ABG PH 7.412 (7.35-7.45); ABG PO2 95.5 MM HG (80-95)
[2020-05-25] MEDS ORDERED: LEVOTHYROXINE 25 MCG TABLET PO SCH (06:30)
[2020-05-25] MEDS ORDERED: GLUCAGON 1 MG VIAL IM PRN (06:44)
[2020-05-25] MEDS ORDERED: DEXTROSE 50% 25 GM/50 ML VIAL IV PRN (06:44)
[2020-05-25] MEDS: INSULIN REGULAR 100 UNIT/ML SUBCUT SCH ×3 (07:44→18:16)
[2020-05-25] MEDS: ALBUTEROL/IPRATROPIUM 3 ML NEB RESP TX SCH ×3 (08:22→19:29)
[2020-05-25] MEDS: ENOXAPARIN 40 MG/0.4 ML SYRINGE SUBCUT SCH (10:47)
[2020-05-25] MEDS: PANTOPRAZOLE 40 MG VIAL IV SCH (10:47)
[2020-05-25] MEDS: LEVOFLOXACIN INJ 750 MG in PREMIX 1 EACH IV SCH (12:05)
[2020-05-25] MEDS: hydrALAZINE 20 MG/1 ML VIAL IV PRN ×3 (12:06→23:37)
[2020-05-25] MEDS: ONDANSETRON 4 MG/2 ML VIAL IV PRN (14:00)
[2020-05-25] MEDS: MENTHOL/ZINC OXIDE OINT 71 GM JAR TOP SCH ×2 (18:16→20:50)
[2020-05-25] MEDS: LACTULOSE 20 GM/30 ML UDCUP PEG SCH (20:46)
[2020-05-25] MEDS: MAGNESIUM OXIDE 400 MG TABLET PEG SCH (20:46)
[2020-05-25] MEDS: SIMVASTATIN 10 MG TABLET PEG SCH (20:46)
[2020-05-25] MEDS: MAGNESIUM HYDROXIDE SUSP 30 ML UDCUP PO SCH (20:47)
[2020-05-25] MEDS: DOCUSATE SODIUM 100 MG/10 ML UDCUP PEG SCH (20:47)
[2020-05-25] MEDS: PROPRANOLOL 20 MG TABLET PEG SCH (20:47)
[2020-05-25] MEDS: CARBOXYMETHYLCELLULOSE 1% OPH SOLN BOTH EYES SCH (20:50)
[2020-05-25] MEDS ORDERED: NIFEdipine 10 MG CAPSULE PO SCH (21:00)
[2020-05-25] MEDS ORDERED: POTASSIUM CHLORIDE 20 MEQ/15 ML UDCUP PEG SCH (21:00)
[2020-05-26] MEDS: INSULIN REGULAR 100 UNIT/ML SUBCUT SCH ×4 (00:11→17:01)
[2020-05-26] MEDS: ALBUTEROL/IPRATROPIUM 3 ML NEB RESP TX SCH ×4 (01:09→19:22)
[2020-05-26 04:11] LABS: Allen Test Positive; Pt O2 Delivery Device Ventilator
[2020-05-26 04:36] LABS: ABG HCO3 27.1 MMOL/L (20-26); ABG PCO2 33.3 MM HG (35-48); ABG PH 7.499 (7.35-7.45); ABG TCO2 23.7 MMOL/L (23-27)
[2020-05-26 05:02] LABS: Basophils % 0.1 % (0.0-0.8); Eosinophils % 0.1 % (0.00-10.9); Hematocrit 27.4 VOL% (35.7-47.0); Hemoglobin 9.3 GM/DL (12.0-16.0); Immature Granulocytes % 0.7 %; Lymphocytes # 1.3 10*3/uL (1.4-4.0); Lymphocytes % 9.4 % (21.3-54.2); Mean Corpuscular HGB Conc 33.9 GM/DL (32-36); Mean Corpuscular Volume 90.4 FL (87-102); Mean Platelet Volume 12.1 FL (9.6-12.0); Monocytes % 5.6 % (1.7-12.7); Neutrophils % 84.1 % (38.7-73.9); Platelet Count 186 T/CUMM (130-400); Red Blood Count 3.03 MC/CUMM (3.8-5.5); White Blood Count 14.2 T/CUMM (4-12)
[2020-05-26 05:40] LABS: Albumin 2.5 G/DL (3.4-5.0); Bilirubin,Total 0.4 MG/DL (0.2-1.0); Calcium 9.5 MG/DL (8.5-10.1); Osmolality,Calculated 276.2 MOS/KG (273-304); Total Protein 6.7 G/DL (6.4-8.3)
[2020-05-26] MEDS ORDERED: LEVOFLOXACIN INJ 750 MG in PREMIX 1 EACH IV SCH (06:00)
[2020-05-26] MEDS: LEVOTHYROXINE 25 MCG TABLET PEG SCH (06:02)
[2020-05-26] MEDS: VANCOMYCIN INJ 1,500 MG in SODIUM CHLORIDE 0.9% 500 ML IV SCH (06:03)
[2020-05-26] MEDS ORDERED: SODIUM CHLORIDE 0.9% 500 ML IV ONE (08:30)
[2020-05-26] MEDS: FERROUS SULFATE 325 MG TABLET PO SCH ×2 (09:51→12:59)
[2020-05-26] MEDS: FAMOTIDINE 20 MG TABLET PEG SCH (09:51)
[2020-05-26] MEDS: OMEGA 3 ACID ETHYL ESTERS 1 GM CAPSULE PO SCH (09:52)
[2020-05-26] MEDS: MULTIVITAMIN LIQUID (CENTRUM) 60 ML BOTTLE PEG SCH (09:52)
[2020-05-26] MEDS: DOXAZOSIN 4 MG TABLET PEG SCH (09:52)
[2020-05-26] MEDS: LACTULOSE 20 GM/30 ML UDCUP PEG SCH ×2 (09:52→20:33)
[2020-05-26] MEDS: MENTHOL/ZINC OXIDE OINT 71 GM JAR TOP SCH ×2 (09:52→20:36)
[2020-05-26] MEDS: ASPIRIN CHEW 81 MG TABLET PO SCH (09:52)
[2020-05-26] MEDS: ISOSORBIDE MONONITRATE 60 MG TABLET PO SCH (09:52)
[2020-05-26] MEDS: PROPRANOLOL 20 MG TABLET PEG SCH ×2 (09:52→20:35)
[2020-05-26] MEDS: SKIN HEALING OINT (AQUAPHOR) 50 GM TUBE TOP PRN (09:53)
[2020-05-26] MEDS: MAGNESIUM OXIDE 400 MG TABLET PEG SCH ×2 (09:53→20:35)
[2020-05-26] MEDS: SODIUM CHLORIDE 0.9% 1,000 ML IV SCH ×2 (09:53→18:08)
[2020-05-26] MEDS: MAGNESIUM HYDROXIDE SUSP 30 ML UDCUP PO SCH ×2 (09:53→20:35)
[2020-05-26] MEDS: PARoxetine 10 MG TABLET PO SCH (09:53)
[2020-05-26] MEDS: CLOPIDOGREL 75 MG TABLET PEG SCH (09:53)
[2020-05-26] MEDS: PANTOPRAZOLE 40 MG VIAL IV SCH (09:53)
[2020-05-26] MEDS: cloNIDine 0.2 MG/24 HR PATCH TRANSDERM SCH (10:20)
[2020-05-26] MEDS: DOCUSATE SODIUM 100 MG/10 ML UDCUP PEG SCH ×2 (10:20→20:33)
[2020-05-26] MEDS: ENOXAPARIN 40 MG/0.4 ML SYRINGE SUBCUT SCH (10:20)
[2020-05-26] MEDS: LEVOFLOXACIN INJ 750 MG in PREMIX 1 EACH IV SCH (10:21)
[2020-05-26] MEDS: SIMVASTATIN 10 MG TABLET PEG SCH (20:35)
[2020-05-26] MEDS: CARBOXYMETHYLCELLULOSE 1% OPH SOLN BOTH EYES SCH (20:36)
[2020-05-27] MEDS: ALBUTEROL/IPRATROPIUM 3 ML NEB RESP TX SCH ×4 (00:10→20:11)
[2020-05-27] MEDS: INSULIN REGULAR 100 UNIT/ML SUBCUT SCH ×4 (00:14→18:36)
[2020-05-27] MEDS: SODIUM CHLORIDE 0.9% 1,000 ML IV SCH ×3 (03:10→13:30)
[2020-05-27 05:01] LABS: Allen Test Positive; Pt O2 Delivery Device Ventilator
[2020-05-27 05:05] LABS: ABG Base Excess -0.4 MMOL/L (-2.5-2.5); ABG Oxygen Saturation 98.8 % (95-100); ABG PCO2 32.6 MM HG (35-48); ABG PH 7.466 (7.35-7.45); ABG PO2 195.8 MM HG (80-95)
[2020-05-27 05:26] LABS: Basophils % 0.1 % (0.0-0.8); Eosinophils # 0.1 10*3/uL (0.0-0.87); Eosinophils % 0.3 % (0.00-10.9); Hematocrit 24.9 VOL% (35.7-47.0); Hemoglobin 8.1 GM/DL (12.0-16.0); Immature Granulocytes % 0.9 %; Lymphocytes % 4.4 % (21.3-54.2); Mean Corpuscular HGB Conc 32.5 GM/DL (32-36); Mean Corpuscular Volume 93.3 FL (87-102); Mean Platelet Volume 12.3 FL (9.6-12.0); Monocytes % 3.3 % (1.7-12.7); Platelet Count 182 T/CUMM (130-400); Red Blood Count 2.67 MC/CUMM (3.8-5.5); Red Cell Distribution Width 13.5 % (9.3-17.3); White Blood Count 22.5 T/CUMM (4-12)
[2020-05-27 05:38] LABS: Calcium 8.2 MG/DL (8.5-10.1); Osmolality,Calculated 286.3 MOS/KG (273-304)
[2020-05-27 05:45] LABS: Band Neutrophils 1 % (0-10); Eosinophils 2 % (0-10); Lymphocytes 1 % (20-55); Segmented Neutrophils 95 % (50-85); Total Cells Counted 100
[2020-05-27 05:46] LABS: Anisocytosis Slight; Macrocytosis Slight; Platelet Estimate Normal
[2020-05-27] MEDS: VANCOMYCIN INJ 1,500 MG in SODIUM CHLORIDE 0.9% 500 ML IV SCH (06:28)
[2020-05-27] MEDS: LEVOTHYROXINE 25 MCG TABLET PEG SCH (06:28)
[2020-05-27] MEDS: MULTIVITAMIN LIQUID (CENTRUM) 60 ML BOTTLE PEG SCH (09:24)
[2020-05-27] MEDS: MAGNESIUM HYDROXIDE SUSP 30 ML UDCUP PO SCH ×2 (09:24→20:58)
[2020-05-27] MEDS: PROPRANOLOL 20 MG TABLET PEG SCH ×2 (09:25→20:57)
[2020-05-27] MEDS: OMEGA 3 ACID ETHYL ESTERS 1 GM CAPSULE PO SCH (09:25)
[2020-05-27] MEDS: PARoxetine 10 MG TABLET PO SCH (09:25)
[2020-05-27] MEDS: MAGNESIUM OXIDE 400 MG TABLET PEG SCH ×2 (09:25→20:57)
[2020-05-27] MEDS: DOXAZOSIN 4 MG TABLET PEG SCH (09:25)
[2020-05-27] MEDS: ASPIRIN CHEW 81 MG TABLET PO SCH (09:25)
[2020-05-27] MEDS: CLOPIDOGREL 75 MG TABLET PEG SCH (09:25)
[2020-05-27] MEDS: FERROUS SULFATE 325 MG TABLET PO SCH ×2 (09:26→11:24)
[2020-05-27] MEDS: FAMOTIDINE 20 MG TABLET PEG SCH (09:26)
[2020-05-27] MEDS: ISOSORBIDE MONONITRATE 60 MG TABLET PO SCH (09:26)
[2020-05-27] MEDS: MENTHOL/ZINC OXIDE OINT 71 GM JAR TOP SCH ×2 (09:27→20:58)
[2020-05-27] MEDS: ENOXAPARIN 40 MG/0.4 ML SYRINGE SUBCUT SCH (09:28)
[2020-05-27] MEDS: PANTOPRAZOLE 40 MG VIAL IV SCH (09:28)
[2020-05-27] MEDS: LEVOFLOXACIN INJ 750 MG in PREMIX 1 EACH IV SCH (10:03)
[2020-05-27] MEDS: DOCUSATE SODIUM 100 MG/10 ML UDCUP PEG SCH ×2 (10:17→20:57)
[2020-05-27] MEDS: LACTULOSE 20 GM/30 ML UDCUP PEG SCH ×2 (10:17→20:57)
[2020-05-27] MEDS: MEROPENEM 500 MG in SODIUM CHLORIDE 0.9% 100 ML IV SCH ×3 (10:56→22:36)
[2020-05-27] MEDS: ENOXAPARIN 80 MG/0.8 ML SYRINGE SUBCUT SCH (17:35)
[2020-05-27] MEDS: SIMVASTATIN 10 MG TABLET PEG SCH (20:57)
[2020-05-27] MEDS: CARBOXYMETHYLCELLULOSE 1% OPH SOLN BOTH EYES SCH (20:58)
[2020-05-28] MEDS: INSULIN REGULAR 100 UNIT/ML SUBCUT SCH ×4 (00:39→17:47)
[2020-05-28] MEDS: ALBUTEROL/IPRATROPIUM 3 ML NEB RESP TX SCH ×4 (00:56→19:48)
[2020-05-28] MEDS: SODIUM CHLORIDE 0.9% 1,000 ML IV SCH ×3 (01:40→20:02)
[2020-05-28] MEDS: SKIN HEALING OINT (AQUAPHOR) 50 GM TUBE TOP PRN (02:00)
[2020-05-28] MEDS: hydrALAZINE 20 MG/1 ML VIAL IV PRN (02:52)
[2020-05-28 03:33] LABS: ABG Base Excess -0.9 MMOL/L (-2.5-2.5); ABG HCO3 23.7 MMOL/L (20-26); ABG PCO2 32.3 MM HG (35-48); ABG PH 7.453 (7.35-7.45); Allen Test Positive; Pt O2 Delivery Device Ventilator
[2020-05-28] MEDS: ENOXAPARIN 80 MG/0.8 ML SYRINGE SUBCUT SCH ×2 (04:10→14:22)
[2020-05-28 04:14] LABS: Basophils % 0.1 % (0.0-0.8); Eosinophils # 0.2 10*3/uL (0.0-0.87); Eosinophils % 0.9 % (0.00-10.9); Hematocrit 23.8 VOL% (35.7-47.0); Hemoglobin 7.7 GM/DL (12.0-16.0); Immature Granulocytes % 1.1 %; Immature Granulocytes Absolute 0.22 #; Lymphocytes # 1.3 10*3/uL (1.4-4.0); Lymphocytes % 6.4 % (21.3-54.2); Mean Corpuscular HGB Conc 32.4 GM/DL (32-36); Mean Corpuscular Volume 94.8 FL (87-102); Mean Platelet Volume 12.4 FL (9.6-12.0); Monocytes % 3.7 % (1.7-12.7); Neutrophils % 87.8 % (38.7-73.9); Platelet Count 181 T/CUMM (130-400); Red Blood Count 2.51 MC/CUMM (3.8-5.5); White Blood Count 20.6 T/CUMM (4-12)
[2020-05-28 04:31] LABS: Calcium 8.1 MG/DL (8.5-10.1); Osmolality,Calculated 286.3 MOS/KG (273-304)
[2020-05-28] MEDS: MEROPENEM 500 MG in SODIUM CHLORIDE 0.9% 100 ML IV SCH ×2 (04:40→10:43)
[2020-05-28 04:45] LABS: Hypochromasia 1+; Lymphocytes 5 % (20-55); Platelet Estimate Normal; Segmented Neutrophils 94 % (50-85); Total Cells Counted 100
[2020-05-28] MEDS: VANCOMYCIN INJ 1,500 MG in SODIUM CHLORIDE 0.9% 500 ML IV SCH (05:55)
[2020-05-28] MEDS: LEVOTHYROXINE 25 MCG TABLET PEG SCH (06:10)
[2020-05-28] MEDS: PANTOPRAZOLE 40 MG VIAL IV SCH (10:42)
[2020-05-28] MEDS: PARoxetine 10 MG TABLET PO SCH (10:43)
[2020-05-28] MEDS: FAMOTIDINE 20 MG TABLET PEG SCH (10:43)
[2020-05-28] MEDS: OMEGA 3 ACID ETHYL ESTERS 1 GM CAPSULE PO SCH (10:44)
[2020-05-28] MEDS: DOXAZOSIN 4 MG TABLET PEG SCH (10:44)
[2020-05-28] MEDS: ASPIRIN CHEW 81 MG TABLET PO SCH (10:44)
[2020-05-28] MEDS: PROPRANOLOL 20 MG TABLET PEG SCH ×2 (10:44→20:01)
[2020-05-28] MEDS: ISOSORBIDE MONONITRATE 60 MG TABLET PO SCH (10:45)
[2020-05-28] MEDS: LACTULOSE 20 GM/30 ML UDCUP PEG SCH ×2 (10:45→20:01)
[2020-05-28] MEDS: FERROUS SULFATE 325 MG TABLET PO SCH ×2 (10:45→13:00)
[2020-05-28] MEDS: DOCUSATE SODIUM 100 MG/10 ML UDCUP PEG SCH ×2 (10:45→20:01)
[2020-05-28] MEDS: CLOPIDOGREL 75 MG TABLET PEG SCH (10:45)
[2020-05-28] MEDS: MAGNESIUM OXIDE 400 MG TABLET PEG SCH ×2 (10:45→20:01)
[2020-05-28] MEDS: MULTIVITAMIN LIQUID (CENTRUM) 60 ML BOTTLE PEG SCH (10:46)
[2020-05-28] MEDS: MENTHOL/ZINC OXIDE OINT 71 GM JAR TOP SCH ×2 (10:46→20:02)
[2020-05-28] MEDS: MAGNESIUM HYDROXIDE SUSP 30 ML UDCUP PO SCH ×2 (10:46→20:02)
[2020-05-28] MEDS: ERTAPENEM 1,000 MG in SODIUM CHLORIDE 0.9% 100 ML IV SCH (11:30)
[2020-05-28] MEDS: SIMVASTATIN 10 MG TABLET PEG SCH (20:01)
[2020-05-28] MEDS: CARBOXYMETHYLCELLULOSE 1% OPH SOLN BOTH EYES SCH (20:02)
[2020-05-29] MEDS: INSULIN REGULAR 100 UNIT/ML SUBCUT SCH ×5 (00:18→23:49)
[2020-05-29] MEDS: ALBUTEROL/IPRATROPIUM 3 ML NEB RESP TX SCH ×4 (01:58→19:04)
[2020-05-29] MEDS: SKIN HEALING OINT (AQUAPHOR) 50 GM TUBE TOP PRN (02:55)
[2020-05-29 04:30] LABS: Basophils % 0.2 % (0.0-0.8); Eosinophils # 0.4 10*3/uL (0.0-0.87); Eosinophils % 2.5 % (0.00-10.9); Hematocrit 22.3 VOL% (35.7-47.0); Immature Granulocytes % 0.9 %; Immature Granulocytes Absolute 0.16 #; Lymphocytes # 1.5 10*3/uL (1.4-4.0); Lymphocytes % 8.4 % (21.3-54.2); Mean Corpuscular HGB Conc 31.4 GM/DL (32-36); Mean Corpuscular Volume 96.5 FL (87-102); Mean Platelet Volume 12.1 FL (9.6-12.0); Monocytes % 3.8 % (1.7-12.7); Neutrophils % 84.2 % (38.7-73.9); Platelet Count 189 T/CUMM (130-400); Red Blood Count 2.31 MC/CUMM (3.8-5.5); Red Cell Distribution Width 14.1 % (9.3-17.3); White Blood Count 17.8 T/CUMM (4-12)
[2020-05-29] MEDS: ENOXAPARIN 80 MG/0.8 ML SYRINGE SUBCUT SCH ×2 (04:36→14:19)
[2020-05-29 05:11] LABS: Osmolality,Calculated 286.1 MOS/KG (273-304)
[2020-05-29] MEDS: VANCOMYCIN INJ 1,500 MG in SODIUM CHLORIDE 0.9% 500 ML IV SCH (05:30)
[2020-05-29] MEDS: LEVOTHYROXINE 25 MCG TABLET PEG SCH (05:53)
[2020-05-29] MEDS: hydrALAZINE 20 MG/1 ML VIAL IV PRN ×2 (06:01→17:07)
[2020-05-29] MEDS: SODIUM CHLORIDE 0.9% 1,000 ML IV SCH ×3 (09:01→16:41)
[2020-05-29] MEDS: FERROUS SULFATE 325 MG TABLET PO SCH ×2 (10:00→13:00)
[2020-05-29] MEDS: MULTIVITAMIN LIQUID (CENTRUM) 60 ML BOTTLE PEG SCH (10:00)
[2020-05-29] MEDS: FAMOTIDINE 20 MG TABLET PEG SCH (10:00)
[2020-05-29] MEDS: ISOSORBIDE MONONITRATE 60 MG TABLET PO SCH (10:00)
[2020-05-29] MEDS: CLOPIDOGREL 75 MG TABLET PEG SCH ×2 (10:00→17:14)
[2020-05-29] MEDS: OMEGA 3 ACID ETHYL ESTERS 1 GM CAPSULE PO SCH (10:00)
[2020-05-29] MEDS: DOXAZOSIN 4 MG TABLET PEG SCH (10:00)
[2020-05-29] MEDS: MAGNESIUM OXIDE 400 MG TABLET PEG SCH ×2 (10:00→20:51)
[2020-05-29] MEDS: ASPIRIN CHEW 81 MG TABLET PO SCH (10:00)
[2020-05-29] MEDS: MENTHOL/ZINC OXIDE OINT 71 GM JAR TOP SCH ×2 (10:00→20:51)
[2020-05-29] MEDS: MAGNESIUM HYDROXIDE SUSP 30 ML UDCUP PO SCH ×2 (10:00→20:50)
[2020-05-29] MEDS: PROPRANOLOL 20 MG TABLET PEG SCH ×2 (10:00→20:50)
[2020-05-29] MEDS: PARoxetine 10 MG TABLET PO SCH (10:00)
[2020-05-29] MEDS: DOCUSATE SODIUM 100 MG/10 ML UDCUP PEG SCH ×2 (10:49→20:50)
[2020-05-29] MEDS: LACTULOSE 20 GM/30 ML UDCUP PEG SCH ×2 (10:49→20:50)
[2020-05-29] MEDS: PANTOPRAZOLE 40 MG VIAL IV SCH (10:51)
[2020-05-29] MEDS ORDERED: SODIUM CHLORIDE 0.9% 1,000 ML IV PRN (12:10)
[2020-05-29] MEDS: ERTAPENEM 1,000 MG in SODIUM CHLORIDE 0.9% 100 ML IV SCH (13:00)
[2020-05-29] MEDS ORDERED: FUROSEMIDE 40 MG/4 ML VIAL IV ONE (17:20)
[2020-05-29] MEDS: SIMVASTATIN 10 MG TABLET PEG SCH (20:50)
[2020-05-29] MEDS: CARBOXYMETHYLCELLULOSE 1% OPH SOLN BOTH EYES SCH (20:50)
[2020-05-30] MEDS: ALBUTEROL/IPRATROPIUM 3 ML NEB RESP TX SCH ×4 (00:36→19:15)
[2020-05-30] MEDS: hydrALAZINE 20 MG/1 ML VIAL IV PRN ×3 (01:50→18:09)
[2020-05-30] MEDS ORDERED: hydrALAZINE 20 MG/1 ML VIAL IV ONE (02:42)
[2020-05-30] MEDS: ENOXAPARIN 80 MG/0.8 ML SYRINGE SUBCUT SCH ×2 (03:00→15:45)
[2020-05-30] MEDS: SODIUM CHLORIDE 0.9% 1,000 ML IV SCH (03:01)
[2020-05-30 03:29] LABS: Basophils # 0.1 10*3/uL (0.0-0.2); Basophils % 0.3 % (0.0-0.8); Eosinophils # 0.3 10*3/uL (0.0-0.87); Eosinophils % 1.9 % (0.00-10.9); Hematocrit 31.3 VOL% (35.7-47.0); Hemoglobin 10.5 GM/DL (12.0-16.0); Immature Granulocytes % 1.7 %; Immature Granulocytes Absolute 0.28 #; Lymphocytes # 1.5 10*3/uL (1.4-4.0); Mean Corpuscular HGB Conc 33.5 GM/DL (32-36); Mean Corpuscular Volume 90.2 FL (87-102); Mean Platelet Volume 11.4 FL (9.6-12.0); Neutrophils % 81.1 % (38.7-73.9); Platelet Count 233 T/CUMM (130-400); Red Blood Count 3.47 MC/CUMM (3.8-5.5); White Blood Count 16.1 T/CUMM (4-12)
[2020-05-30 03:51] LABS: Calcium 8.3 MG/DL (8.5-10.1)
[2020-05-30 04:34] LABS: ABG Base Excess 2.1 MMOL/L (-2.5-2.5); ABG HCO3 25.6 MMOL/L (20-26); ABG Oxygen Saturation 88.9 % (95-100); ABG PH 7.469 (7.35-7.45); ABG PO2 53.3 MM HG (80-95); ABG TCO2 26.7 MMOL/L (23-27); Allen Test Positive; Pt O2 Delivery Device Room Air
[2020-05-30] MEDS: INSULIN REGULAR 100 UNIT/ML SUBCUT SCH ×4 (05:27→23:51)
[2020-05-30] MEDS: LEVOTHYROXINE 25 MCG TABLET PEG SCH (05:40)
[2020-05-30] MEDS: ASPIRIN CHEW 81 MG TABLET PO SCH (08:21)
[2020-05-30] MEDS: FERROUS SULFATE 325 MG TABLET PO SCH ×2 (08:21→12:57)
[2020-05-30] MEDS: FAMOTIDINE 20 MG TABLET PEG SCH (08:21)
[2020-05-30] MEDS: MENTHOL/ZINC OXIDE OINT 71 GM JAR TOP SCH ×2 (08:21→21:06)
[2020-05-30] MEDS: MULTIVITAMIN LIQUID (CENTRUM) 60 ML BOTTLE PEG SCH (08:21)
[2020-05-30] MEDS: DOXAZOSIN 4 MG TABLET PEG SCH (08:21)
[2020-05-30] MEDS: PANTOPRAZOLE 40 MG VIAL IV SCH (08:22)
[2020-05-30] MEDS: MAGNESIUM OXIDE 400 MG TABLET PEG SCH ×2 (08:22→21:05)
[2020-05-30] MEDS: PROPRANOLOL 20 MG TABLET PEG SCH ×2 (08:22→21:06)
[2020-05-30] MEDS: DOCUSATE SODIUM 100 MG/10 ML UDCUP PEG SCH ×2 (08:22→21:06)
[2020-05-30] MEDS: PARoxetine 10 MG TABLET PO SCH (08:22)
[2020-05-30] MEDS: ISOSORBIDE MONONITRATE 60 MG TABLET PO SCH (08:22)
[2020-05-30] MEDS: LACTULOSE 20 GM/30 ML UDCUP PEG SCH ×2 (08:22→21:05)
[2020-05-30] MEDS: OMEGA 3 ACID ETHYL ESTERS 1 GM CAPSULE PO SCH (08:22)
[2020-05-30] MEDS: MAGNESIUM HYDROXIDE SUSP 30 ML UDCUP PO SCH ×2 (08:22→21:05)
[2020-05-30] MEDS: ONDANSETRON 4 MG/2 ML VIAL IV PRN (08:31)
[2020-05-30] MEDS: FUROSEMIDE 40 MG/4 ML VIAL IV SCH ×2 (12:57→21:06)
[2020-05-30] MEDS: ERTAPENEM 1,000 MG in SODIUM CHLORIDE 0.9% 100 ML IV SCH (12:57)
[2020-05-30] MEDS: VANCOMYCIN INJ 1,500 MG in SODIUM CHLORIDE 0.9% 500 ML IV SCH (18:08)
[2020-05-30] MEDS: SIMVASTATIN 10 MG TABLET PEG SCH (21:06)
[2020-05-30] MEDS: CARBOXYMETHYLCELLULOSE 1% OPH SOLN BOTH EYES SCH (21:06)
[2020-05-31] MEDS: ALBUTEROL/IPRATROPIUM 3 ML NEB RESP TX SCH ×4 (00:59→20:09)
[2020-05-31 03:15] LABS: Basophils % 0.2 % (0.0-0.8); Eosinophils # 0.3 10*3/uL (0.0-0.87); Eosinophils % 3.6 % (0.00-10.9); Hematocrit 29.4 VOL% (35.7-47.0); Hemoglobin 9.5 GM/DL (12.0-16.0); Immature Granulocytes % 1.1 %; Lymphocytes # 1.3 10*3/uL (1.4-4.0); Lymphocytes % 14.6 % (21.3-54.2); Mean Corpuscular HGB Conc 32.3 GM/DL (32-36); Mean Corpuscular Volume 92.2 FL (87-102); Mean Platelet Volume 11.2 FL (9.6-12.0); Neutrophils % 71.5 % (38.7-73.9); Platelet Count 228 T/CUMM (130-400); Red Blood Count 3.19 MC/CUMM (3.8-5.5); Red Cell Distribution Width 14.9 % (9.3-17.3); White Blood Count 9.2 T/CUMM (4-12)
[2020-05-31] MEDS: ENOXAPARIN 80 MG/0.8 ML SYRINGE SUBCUT SCH ×2 (03:16→16:26)
[2020-05-31 03:27] LABS: Calcium 8.6 MG/DL (8.5-10.1); Osmolality,Calculated 290.8 MOS/KG (273-304)
[2020-05-31] MEDS: LEVOTHYROXINE 25 MCG TABLET PEG SCH (06:35)
[2020-05-31] MEDS: INSULIN REGULAR 100 UNIT/ML SUBCUT SCH ×3 (06:35→18:02)
[2020-05-31] MEDS: hydrALAZINE 20 MG/1 ML VIAL IV PRN ×2 (06:35→20:59)
[2020-05-31] MEDS: PANTOPRAZOLE 40 MG VIAL IV SCH (08:00)
[2020-05-31] MEDS: DOXAZOSIN 4 MG TABLET PEG SCH (08:00)
[2020-05-31] MEDS: ASPIRIN CHEW 81 MG TABLET PO SCH (08:00)
[2020-05-31] MEDS: PROPRANOLOL 20 MG TABLET PEG SCH ×2 (08:01→20:54)
[2020-05-31] MEDS: MAGNESIUM OXIDE 400 MG TABLET PEG SCH (08:01)
[2020-05-31] MEDS: PARoxetine 10 MG TABLET PO SCH (08:01)
[2020-05-31] MEDS: FAMOTIDINE 20 MG TABLET PEG SCH (08:02)
[2020-05-31] MEDS: ISOSORBIDE MONONITRATE 60 MG TABLET PO SCH (08:02)
[2020-05-31] MEDS: FERROUS SULFATE 325 MG TABLET PO SCH ×2 (08:02→11:25)
[2020-05-31] MEDS: OMEGA 3 ACID ETHYL ESTERS 1 GM CAPSULE PO SCH (08:02)
[2020-05-31] MEDS: LACTULOSE 20 GM/30 ML UDCUP PEG SCH ×2 (08:03→20:54)
[2020-05-31] MEDS: FUROSEMIDE 40 MG/4 ML VIAL IV SCH ×2 (08:03→20:57)
[2020-05-31] MEDS: DOCUSATE SODIUM 100 MG/10 ML UDCUP PEG SCH (08:03)
[2020-05-31] MEDS: MAGNESIUM HYDROXIDE SUSP 30 ML UDCUP PO SCH ×2 (08:04→20:54)
[2020-05-31] MEDS: MENTHOL/ZINC OXIDE OINT 71 GM JAR TOP SCH ×2 (08:07→20:51)
[2020-05-31] MEDS: MULTIVITAMIN LIQUID (CENTRUM) 60 ML BOTTLE PEG SCH (08:07)
[2020-05-31] MEDS ORDERED: POTASSIUM CHLORIDE 20 MEQ/15 ML UDCUP PER TUBE PRN (09:58)
[2020-05-31] MEDS: ERTAPENEM 1,000 MG in SODIUM CHLORIDE 0.9% 100 ML IV SCH (11:18)
[2020-05-31] MEDS: SIMVASTATIN 10 MG TABLET PEG SCH (20:54)
[2020-05-31] MEDS: CARBOXYMETHYLCELLULOSE 1% OPH SOLN BOTH EYES SCH (21:00)
[2020-06-01] MEDS: ALBUTEROL/IPRATROPIUM 3 ML NEB RESP TX SCH ×4 (00:24→22:19)
[2020-06-01] MEDS: INSULIN REGULAR 100 UNIT/ML SUBCUT SCH ×4 (01:19→20:21)
[2020-06-01] MEDS: ENOXAPARIN 80 MG/0.8 ML SYRINGE SUBCUT SCH ×2 (02:41→15:05)
[2020-06-01] MEDS: LEVOTHYROXINE 25 MCG TABLET PEG SCH (05:32)
[2020-06-01] MEDS: VANCOMYCIN INJ 1,500 MG in SODIUM CHLORIDE 0.9% 500 ML IV SCH (05:32)
[2020-06-01 06:48] LABS: Basophils % 0.4 % (0.0-0.8); Eosinophils # 0.4 10*3/uL (0.0-0.87); Eosinophils % 4.1 % (0.00-10.9); Hematocrit 29.5 VOL% (35.7-47.0); Hemoglobin 9.6 GM/DL (12.0-16.0); Immature Granulocytes % 0.8 %; Immature Granulocytes Absolute 0.08 #; Lymphocytes # 1.8 10*3/uL (1.4-4.0); Lymphocytes % 19.1 % (21.3-54.2); Mean Corpuscular HGB Conc 32.5 GM/DL (32-36); Mean Corpuscular Volume 92.5 FL (87-102); Mean Platelet Volume 11.3 FL (9.6-12.0); Monocytes % 9.6 % (1.7-12.7); Platelet Count 233 T/CUMM (130-400); Red Blood Count 3.19 MC/CUMM (3.8-5.5); Red Cell Distribution Width 14.6 % (9.3-17.3); White Blood Count 9.5 T/CUMM (4-12)
[2020-06-01 07:10] LABS: Calcium 8.6 MG/DL (8.5-10.1); Osmolality,Calculated 286.3 MOS/KG (273-304)
[2020-06-01] MEDS ORDERED: cloNIDine 0.2 MG/24 HR PATCH TRANSDERM SCH (09:00)
[2020-06-01] MEDS: FUROSEMIDE 40 MG/4 ML VIAL IV SCH ×2 (10:47→21:33)
[2020-06-01] MEDS: PANTOPRAZOLE 40 MG VIAL IV SCH (10:47)
[2020-06-01] MEDS: OMEGA 3 ACID ETHYL ESTERS 1 GM CAPSULE PO SCH (10:48)
[2020-06-01] MEDS: DOXAZOSIN 4 MG TABLET PEG SCH (10:48)
[2020-06-01] MEDS: PARoxetine 10 MG TABLET PO SCH (10:48)
[2020-06-01] MEDS: FERROUS SULFATE 325 MG TABLET PO SCH ×2 (10:48→13:45)
[2020-06-01] MEDS: ISOSORBIDE MONONITRATE 60 MG TABLET PO SCH (10:48)
[2020-06-01] MEDS: PROPRANOLOL 20 MG TABLET PEG SCH ×2 (10:48→21:43)
[2020-06-01] MEDS: FAMOTIDINE 20 MG TABLET PEG SCH (10:48)
[2020-06-01] MEDS: ASPIRIN CHEW 81 MG TABLET PO SCH (10:49)
[2020-06-01] MEDS: MAGNESIUM HYDROXIDE SUSP 30 ML UDCUP PO SCH ×2 (10:49→21:59)
[2020-06-01] MEDS: LACTULOSE 20 GM/30 ML UDCUP PEG SCH ×2 (10:49→21:59)
[2020-06-01] MEDS: MULTIVITAMIN LIQUID (CENTRUM) 60 ML BOTTLE PEG SCH (11:02)
[2020-06-01] MEDS: MENTHOL/ZINC OXIDE OINT 71 GM JAR TOP SCH ×2 (11:02→21:36)
[2020-06-01] MEDS: ERTAPENEM 1,000 MG in SODIUM CHLORIDE 0.9% 100 ML IV SCH (12:29)
[2020-06-01] MEDS: hydrALAZINE 25 MG TABLET PO SCH ×2 (17:22→21:33)
[2020-06-01] MEDS: SIMVASTATIN 10 MG TABLET PEG SCH (21:33)
[2020-06-01] MEDS: CARBOXYMETHYLCELLULOSE 1% OPH SOLN BOTH EYES SCH (22:12)
[2020-06-02] MEDS: INSULIN REGULAR 100 UNIT/ML SUBCUT SCH ×5 (00:47→23:50)
[2020-06-02] MEDS: ALBUTEROL/IPRATROPIUM 3 ML NEB RESP TX SCH ×4 (01:40→19:23)
[2020-06-02] MEDS: ENOXAPARIN 80 MG/0.8 ML SYRINGE SUBCUT SCH (03:24)
[2020-06-02] MEDS: LEVOTHYROXINE 25 MCG TABLET PEG SCH (06:00)
[2020-06-02 08:45] LABS: Calcium 8.8 MG/DL (8.5-10.1); Osmolality,Calculated 281.5 MOS/KG (273-304)
[2020-06-02] MEDS: FUROSEMIDE 40 MG/4 ML VIAL IV SCH ×2 (10:45→20:34)
[2020-06-02] MEDS: ASPIRIN CHEW 81 MG TABLET PO SCH (10:45)
[2020-06-02] MEDS: PANTOPRAZOLE 40 MG VIAL IV SCH (10:45)
[2020-06-02] MEDS: PARoxetine 10 MG TABLET PO SCH (10:46)
[2020-06-02] MEDS: FAMOTIDINE 20 MG TABLET PEG SCH (10:46)
[2020-06-02] MEDS: PROPRANOLOL 20 MG TABLET PEG SCH ×2 (10:46→20:33)
[2020-06-02] MEDS: ISOSORBIDE MONONITRATE 60 MG TABLET PO SCH (10:46)
[2020-06-02] MEDS: OMEGA 3 ACID ETHYL ESTERS 1 GM CAPSULE PO SCH (10:46)
[2020-06-02] MEDS: DOXAZOSIN 4 MG TABLET PEG SCH (10:46)
[2020-06-02] MEDS: MENTHOL/ZINC OXIDE OINT 71 GM JAR TOP SCH ×2 (10:47→20:34)
[2020-06-02] MEDS: FERROUS SULFATE 325 MG TABLET PO SCH ×2 (10:47→15:45)
[2020-06-02] MEDS: MULTIVITAMIN LIQUID (CENTRUM) 60 ML BOTTLE PEG SCH (10:47)
[2020-06-02] MEDS: LACTULOSE 20 GM/30 ML UDCUP PEG SCH ×2 (10:58→20:34)
[2020-06-02] MEDS: cloNIDine 0.2 MG/24 HR PATCH TRANSDERM SCH (10:58)
[2020-06-02] MEDS: MAGNESIUM HYDROXIDE SUSP 30 ML UDCUP PO SCH ×2 (10:59→20:34)
[2020-06-02] MEDS: ERTAPENEM 1,000 MG in SODIUM CHLORIDE 0.9% 100 ML IV SCH (12:35)
[2020-06-02] MEDS: hydrALAZINE 25 MG TABLET PO SCH (12:51)
[2020-06-02 13:46] LABS: Hematocrit 25.4 VOL% (35.7-47.0); Hemoglobin 8.4 GM/DL (12.0-16.0)
[2020-06-02] MEDS: SIMVASTATIN 10 MG TABLET PEG SCH (20:32)
[2020-06-02] MEDS: CARBOXYMETHYLCELLULOSE 1% OPH SOLN BOTH EYES SCH (20:48)
[2020-06-02] MEDS ORDERED: APIXABAN 5 MG TABLET PO SCH (21:00)
[2020-06-03] MEDS: ALBUTEROL/IPRATROPIUM 3 ML NEB RESP TX SCH ×3 (01:45→13:44)
[2020-06-03] MEDS: LEVOTHYROXINE 25 MCG TABLET PEG SCH (05:11)
[2020-06-03] MEDS: INSULIN REGULAR 100 UNIT/ML SUBCUT SCH ×2 (05:13→12:40)
[2020-06-03] MEDS: PANTOPRAZOLE 40 MG VIAL IV SCH (09:03)
[2020-06-03] MEDS: FUROSEMIDE 40 MG/4 ML VIAL IV SCH (09:03)
[2020-06-03] MEDS: PROPRANOLOL 20 MG TABLET PEG SCH (09:06)
[2020-06-03] MEDS: MAGNESIUM HYDROXIDE SUSP 30 ML UDCUP PO SCH (09:07)
[2020-06-03] MEDS: LACTULOSE 20 GM/30 ML UDCUP PEG SCH (09:07)
[2020-06-03] MEDS: PARoxetine 10 MG TABLET PO SCH (09:07)
[2020-06-03] MEDS: MULTIVITAMIN LIQUID (CENTRUM) 60 ML BOTTLE PEG SCH (09:07)
[2020-06-03] MEDS: ASPIRIN CHEW 81 MG TABLET PO SCH (09:08)
[2020-06-03] MEDS: FERROUS SULFATE 325 MG TABLET PO SCH ×2 (09:08→12:40)
[2020-06-03] MEDS: OMEGA 3 ACID ETHYL ESTERS 1 GM CAPSULE PO SCH (09:08)
[2020-06-03] MEDS: DOXAZOSIN 4 MG TABLET PEG SCH (09:08)
[2020-06-03] MEDS: FAMOTIDINE 20 MG TABLET PEG SCH (09:08)
[2020-06-03] MEDS: MENTHOL/ZINC OXIDE OINT 71 GM JAR TOP SCH (09:08)
[2020-06-03] MEDS: ISOSORBIDE MONONITRATE 60 MG TABLET PO SCH (09:08)
[2020-06-03 12:35] VITALS: BP 125/45
[2020-06-03] MEDS: ERTAPENEM 1,000 MG in SODIUM CHLORIDE 0.9% 100 ML IV SCH (12:40)
== END 2020-06-03 14:35 | DRG 208 ==
LOC: EDUNIT# 02:17 → EDBD 02:17 → N.ED 02:17 → N.EDINP 04:13 → SUATTDRO 04:13 → N.ICU 05:24 → N.5E 05-31 11:07
PROVIDERS: ADMIT Internal Medicine; ATTEND Internal Medicine